=== PATIENT | male | born 1960 | race African-American/Black ===

== ENCOUNTER 2019-01-25 22:03 | Inpatient (IN) | payer OTHER ==
[~2019-01-25] VITALS: Ht 185.4 cm; Wt 159.0 kg
[~2019-01-25 22:03] MED LIST: ACETAMINOP650 MG/20. PO; AMBIEN10 M1 PO; AMBIEN5 MG PO; AMLODIPINE BESY10 MG ORAL; ASPIR 8181 MG ORAL; ATORVASTATIN CA40 MG ORAL; BACTRIM DS TAB1 EAC1 ORAL; CATAPRES0.1 MG PO; CEPHALEXIN500 MG PO; CLONIDINE0.1 MG PO; COUMADIN10 MG PO; COUMADIN4 MG PO; DIOVAN320 MG PO; DOXAZOSIN MESYLA2 MG ORAL; DOXYCYCLINE MO100 MG PO; FERROUS SULFAT325 MG ORAL; FLOMAX0.4 MG ORAL; FUROSEMIDE40 MG/5 ML ORAL; GABAPENTIN300 MG ORAL; HUMALOG100 UNIT/4 SQ; HUMALOG100 UNIT/4 SUBQ; HYDRALAZINE HC100 MG ORAL; HYDRALAZINE HCL25 M2 PO; HYDROCHLOROTHIA50 MG PO; HYDROCODON-ACE1 EA13 ORAL; HYDROCORTISONE25 MG RC; IBUPROFEN100 M2 PO; IBUPROFEN200 M2 ORAL; JANUVIA100 MG PO; KEFLEX500 MG ORAL; LANTUS SOL100 UNIT/1 SUBQ; LANTUS5 UNITS SUBQ; LASIX20 MG PO; LEXAPRO10 MG ORAL; LISINOPRIL20 MG ORAL; LOMOTIL TABLET1 EACH PO; LOPID600 MG PO; LOPRESSOR PO; LOPRESSOR50 M1 PO; LOSARTAN POTASS50 MG ORAL; METOPROLOL SUC100 MG ORAL; MINOXIDIL2.5 MG PO; NEURONTIN600 MG PO; NIFEDIPINE ER90 M3 ORAL; NITROFURANTOIN100 M2 ORAL; NORCO 10-325 T1 EACH ORAL; NORCO 10/3251 EA ORAL; PHENAZOPYRIDIN200 MG ORAL; POTASSIUM CHLO20 ME1 PO; POTASSIUM30 MEQ/22. PO; PRILOSEC20 MG PO; SPIRONOLACTONE100 MG ORAL; T.E.D. ANTI-EM1 EA10 MC; VICODIN 5-5001 EACH PO; VITAMIN D400 INTLU PO
--- NOTE | 2019-01-25 22:11 | NUR ---
ED Nurse Note: Spoke with Karyn at [facility] who states fall was unwitnessed; pt denied LOC.
[2019-01-25 22:19] VITALS: BP 172/104
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
[2019-01-25] MEDS ORDERED: NEURONTIN600 MG ORAL (22:28)
[2019-01-25] MEDS ORDERED: CARDIZEM120 MG PO (22:28)
[2019-01-25] MEDS ORDERED: CARVEDILOL25 MG ORAL (22:28)
[2019-01-25] MEDS ORDERED: CLONIDINE HCL0.3 MG PO (22:28)
[2019-01-26] VITALS (8 sets, daily range): BP systolic 120–181; BP diastolic 56–110
--- NOTE | 2019-01-26 00:26 | Emergency Room Report ---
History of Present Illness General Chief Complaint: Altered Level of Consciousness Source: Patient, EMS Present Illness HPI Patient apparently fell at the [facility] facility. He injured his left arm. Apparently he's had decreased mentation since that time. The transporting [facility] ambulance crew says that he was completely unresponsive for them. The patient does open his eyes when I ask him to. He states he did not lose consciousness when he fell. He's complaining about pain in his left arm. He denies any chest pain, abdominal pain, headache with neck pain. According to cryptic notes on SNF admission: ely, ALOC Admitted May 2016 for abdominal pain. D/C dx: 1. Acute gastroenteritis. 2. Congestive heart failure. 3. Acute on chronic diastolic congestive heart failure. 4. Diabetes mellitus, uncontrolled. 5. Hypertension. 6. Obstructive uropathy. 7. Chronic renal failure. 8. Obstructive sleep apnea. 9. Iron deficiency anemia. 10. Chronic kidney disease stage 3. 11. Gastritis. 12. Colon polyps. 13. Internal hemorrhoids. 14. Diverticulosis. 15. Duodenitis. Allergies: Coded Allergies: AMLODIPINE (Verified Allergy, Unknown, 01/25/19) Patient History Limited by: medical condition Past Medical History: see triage record, old chart reviewed Past Surgical History: other - lamenectomy and fusion C spine Social History: Reports: smoking, drug use - thc Social History Narrative SNF Reviewed Nursing Documentation: PMH: Agreed; PSxH: Agreed Nursing Documentation-PM Past Medical History Deferred: No Family Available Past Medical History: No Stated History Hx Cardiac Problems: Yes - Atherosclerotic Heart Disease; Angina Hx Hypertension: Yes - Idiopathic Peripheral Peripheral Autonomic Neuropathy Hx Pacemaker: No - URETHRA RESTRICTION Hx Asthma: No Hx Diabetes: Yes Hx Cancer: No Hx Gastrointestinal Problems: Yes Hx Dialysis: No - CKD Hx Neurological Problems: Yes Hx Cerebrovascular Accident: Yes - 2005 Hx Syncope: Yes Review of Systems All Other Systems: limited Physical Exam Vital Signs Date Time Temp Pulse Resp B/P (MAP) Pulse Ox O2 Delivery O2 Flow Rate FiO2 01/25/19 22:04 98.1 86 16 172/104 97 Room Air Sp02 EP Interpretation: reviewed, normal General Appearance: lethargic, Chronically Ill Head: normocephalic Eyes: bilateral eye PERRL, bilateral eye Scleral Injection ENT: moist mucus membranes, other - Gag present Neck: supple Respiratory: other - Sai-Lynch respirations with outpatient apnea Cardiovascular #1: regular rate, rhythm, edema - Brawny bilateral Cardiovascular #2: 2+ radial (R), 2+ radial (L) Gastrointestinal: decreased bowel sounds, overweight Musculoskeletal: tender - Left shoulder and left Neurologic: DTRs symmetric, sensory intact, no Babinski, motor weakness - Diffuse, other - Lethargic Psychiatric: depressed affect Skin: normal inspection, warm/dry Procedures Critical Care Time Critical Care Time Total Critical Care Time: 30 min bedside evaluation and treatment excludes procedures (EKG). Reason for critical care: ALOC, respiratory depression, repeated exams Possible complications: hypotension, hypertension, WI, shock, arrhythmias, metabolic acidosis, end organ damage, respiratory failure. Interventions: repeated exams, CO2 monitoring, lasix Course: Patient is altered level of consciousness post fall. Some evidence of resp insufficiency. CO2 monitoring. Repeated exams with improved mentation. CO2 remains stable. Some improvement with lasix with some diuresis. Consultations: nursing staff, EMS, RT Performed by: Dr. Manning Tolerated well condition = serious Medical Decision Making Diagnostic Impression: Primary Impression: Altered level of consciousness Additional Impressions: Fall Qualified Codes: W19.XXXA - Unspecified fall, initial encounter Elbow contusion Qualified Codes: S50.02XA - Contusion of left elbow, initial encounter Shoulder contusion Qualified Codes: S40.012A - Contusion of left shoulder, initial encounter Renal failure Qualified Codes: N19 - Unspecified kidney failure Sai-Lynch breathing Sleep apnea Qualified Codes: G47.30 - Sleep apnea, unspecified ER Course Patient presents with decreased mentation after mechanical fall. He states he remembers falling however because of his decreased mentation I we need to exclude bleed, contusion or other intracranial process. In addition we need to exclude fracture versus contusion of the left arm. Evaluation will be with EKG , chest x-ray and labs. X-ray of the shoulder and elbow will be performed. EKG with sinus rhythm right axis and nonspecific ST-T wave changes. CT no injury. CXR pulm htn. Labs with The patient has snoring respirations with a good O2 saturation. A CO2 monitor is placed on the patient. There is evidence of some retention with a CO2 of 43. Clinically looks like CHF. Will give dose of lasix. No evidence of fx on x-rays of L arm. Patient more responsive. Follows commands. Etiology of lethargy seems multifactorial. Admit telemetry, Dr. Londono. Laboratory Tests Test 01/26/19 00:21 01/26/19 00:40 White Blood Count 6.3 K/UL (4.8-10.8) Red Blood Count 3.71 M/UL (4.70-6.10) L Hemoglobin 9.4 G/DL (14.2-18.0) L Hematocrit 29.9 % (42.0-52.0) L Mean Corpuscular Volume 80 FL (80-99) Mean Corpuscular Hemoglobin 25.2 PG (27.0-31.0) L Mean Corpuscular Hemoglobin Concent 31.4 G/DL (32.0-36.0) L Red Cell Distribution Width 16.2 % (11.6-14.8) H Platelet Count 200 K/UL (150-450) Mean Platelet Volume 8.4 FL (6.5-10.1) Neutrophils (%) (Auto) 61.8 % (45.0-75.0) Lymphocytes (%) (Auto) 21.9 % (20.0-45.0) Monocytes (%) (Auto) 8.8 % (1.0-10.0) Eosinophils (%) (Auto) 6.3 % (0.0-3.0) H Basophils (%) (Auto) 1.3 % (0.0-2.0) Sodium Level 142 MMOL/L (136-145) Potassium Level 4.4 MMOL/L (3.5-5.1) Chloride Level 107 MMOL/L (98-107) Carbon Dioxide Level 29 MMOL/L (21-32) Anion Gap 6 mmol/L (5-15) Blood Urea Nitrogen 43 mg/dL (7-18) H Creatinine 2.8 MG/DL (0.55-1.30) H Estimate Glomerular Filtration Rate 28.4 mL/min (>60) Glucose Level 166 MG/DL (74-106) H Calcium Level 8.4 MG/DL (8.5-10.1) L Total Bilirubin 0.1 MG/DL (0.2-1.0) L Aspartate Amino Transferase (AST) 18 U/L (15-37) Alanine Aminotransferase (ALT) 20 U/L (12-78) Alkaline Phosphatase 98 U/L (46-116) Ammonia 26 umol/L (11-32) Total Creatine Kinase 234 U/L (26-308) Total Protein 7.4 G/DL (6.4-8.2) Albumin 2.7 G/DL (3.4-5.0) L Globulin 4.7 g/dL Albumin/Globulin Ratio 0.6 (1.0-2.7) L Thyroid Stimulating Hormone (TSH) 0.418 uiU/mL (0.358-3.740) Salicylates Level 2.5 ug/mL (2.8-20) L Acetaminophen Level < 2 MCG/ML (10-30) L Serum Alcohol < 3 mg/dL Urine Color Pale yellow Urine Appearance Clear Urine pH 6 (4.5-8.0) Urine Specific [place] 1.015 (1.005-1.035) Urine Protein 3+ (NEGATIVE) H Urine Glucose (UA) Negative (NEGATIVE) Urine Ketones Negative (NEGATIVE) Urine Blood 1+ (NEGATIVE) H Urine Nitrite Negative (NEGATIVE) Urine Bilirubin Negative (NEGATIVE) Urine Urobilinogen Normal MG/DL (0.0-1.0) Urine Leukocyte Esterase 2+ (NEGATIVE) H Urine RBC 0-2 /HPF (0 - 0) H Urine WBC 10-15 /HPF (0 - 0) H Urine Squamous Epithelial Cells None /LPF (NONE/OCC) Urine Bacteria Moderate /HPF (NONE) H Urine Opiates Screen Negative (NEGATIVE) Urine Barbiturates Screen Negative (NEGATIVE) Phencyclidine (PCP) Screen Negative (NEGATIVE) Urine Amphetamines Screen Negative (NEGATIVE) Urine Benzodiazepines Screen Negative (NEGATIVE) Urine Cocaine Screen Negative (NEGATIVE) Urine Marijuana (THC) Screen Positive (NEGATIVE) H EKG Diagnostic Results Rate: normal Rhythm: NSR ST Segments: no acute changes - Right axis deviation Rhythm Strip Diag. Results EP Interpretation: yes Rhythm: NSR, no PVC's, no ectopy Chest X-Ray Diagnostic Results Chest X-Ray Diagnostic Results : Chest X-Ray Ordered: Yes # of Views/Limited/Complete: 1 View Indication: Other EP Interpretation: Yes Interpretation: no effusion, no pneumothorax, other - reversal flow Impression: Other Electronically Signed by: Electronically signed by Marin Manning MD Other X-Ray Diagnostic Results Other X-Ray Diagnostic Results #1: X-Ray ordered: L elbow # of Views/Limited Vs Complete: 3 View Indication: Pain EP Interpretation: Yes Interpretation: no dislocation, no soft tissue swelling, no fractures, other - calcific tendinitis Impression: Other Electronically Signed by: Electronically signed by Marin Manning MD Other X-Ray Diagnostic Results #2: X-Ray ordered: L shoulder # of Views/Limited Vs Complete: 3 View Indication: Pain EP Interpretation: Yes Interpretation: no dislocation, no soft tissue swelling, no fractures, other - DJD Impression: Other Electronically Signed by: Electronically signed by Marin Manning MD CT/MRI/US Diagnostic Results CT/MRI/US Diagnostic Results #1: Imaging Test Ordered: Head Impression Impression: No mass effect, edema or acute bleed. Right mastoiditis CT/MRI/US Diagnostic Results #2: Imaging Test Ordered: C-spine Impression IMPRESSION: No obvious acute injury. Multilevel laminectomy and fusion C3-C7 as described above. Last Vital Signs Date Time Temp Pulse Resp B/P (MAP) Pulse Ox O2 Delivery O2 Flow Rate FiO2 01/26/19 12:14 89 133/67 01/26/19 12:00 97.5 18 95 01/26/19 09:00 Room Air Status: improved Disposition: ADMITTED INPATIENT Condition: Serious Referrals: NON PHYSICIAN (PCP) Marin Manning MD Jan 26, 2019 00:26
[2019-01-26 00:34] LABS: BASOPHILS % (AUTO) 1.3 % (0.0-2.0); EOSINOPHILS % (AUTO) 6.3 % (0.0-3.0); HEMATOCRIT 29.9 % (42.0-52.0); HEMOGLOBIN 9.4 G/DL (14.2-18.0); LYMPHOCYTES % (AUTO) 21.9 % (20.0-45.0); MEAN CORPUSCULAR VOLUME 80 FL (80-99); MONOCYTES % (AUTO) 8.8 % (1.0-10.0); NEUTROPHILS % (AUTO) 61.8 % (45.0-75.0); PLATELET COUNT 200 K/UL (150-450); RED BLOOD COUNT 3.71 M/UL (4.70-6.10); RED CELL DISTRIBUTION WIDTH 16.2 % (11.6-14.8); WHITE BLOOD COUNT 6.3 K/UL (4.8-10.8)
[2019-01-26 00:46] LABS: ANION GAP 6 mmol/L (5-15); BLOOD UREA NITROGEN 43 mg/dL (7-18); CALCIUM 8.4 MG/DL (8.5-10.1); CARBON DIOXIDE 29 MMOL/L (21-32); CHLORIDE 107 MMOL/L (98-107); CREATININE 2.8 MG/DL (0.55-1.30); POTASSIUM 4.4 MMOL/L (3.5-5.1); SODIUM 142 MMOL/L (136-145)
[2019-01-26 00:47] LABS: APPEARANCE,URINE CLEAR; BILIRUBIN, URINE NEGATIVE (NEGATIVE); COLOR,URINE PALE YELLOW; GLUCOSE, URINE (UA) NEGATIVE (NEGATIVE); KETONES,URINE NEGATIVE (NEGATIVE); LEUKOCYTE ESTERASE ,URINE 2+ (NEGATIVE); NITRITE,URINE NEGATIVE (NEGATIVE); PH,URINE 6 (4.5-8.0); PROTEIN,URINE 3+ (NEGATIVE); UROBILINOGEN,URINE NORMAL MG/DL (0.0-1.0)
[2019-01-26] MEDS: Sodium Chloride 550 ML IV SCH (00:47)
[2019-01-26 00:49] LABS: AMMONIA 26 umol/L (11-32)
[2019-01-26 00:59] LABS: ALANINE AMINOTRANSFERASE 20 U/L (12-78); ALBUMIN 2.7 G/DL (3.4-5.0); ALBUMIN/GLOBULIN RATIO 0.6 (1.0-2.7); ALKALINE PHOSPHATASE 98 U/L (46-116); ASPARTATE AMINO TRANSFERASE 18 U/L (15-37); BILIRUBIN,TOTAL 0.1 MG/DL (0.2-1.0); CREATINE KINASE 234 U/L (26-308)
--- NOTE | 2019-01-26 03:20 | NUR ---
ED Nurse Note: Incontinent of large amts of urine (guerney saturated); cleaned and changed.
--- NOTE | 2019-01-26 03:22 | NUR ---
ED Nurse Note: Patient was transfered to Tele just for observation. AAO x1, VSS at this time.
--- NOTE | 2019-01-26 03:30 | NUR ---
NURSE NOTES: Received patient from ED, patient lethargic but able to answer questions. Oriented x4. Placed in bed, in low position, locked, alarm on, call light within reach. Vitals stable at 97.1-81-20-174/110-97% on room air. No signs or respiratory distress.
--- NOTE | 2019-01-26 04:13 | NUR ---
NURSE NOTES: Left message at Dr. Londono's answering service requesting admission orders for the patient.
[2019-01-26] MEDS ORDERED: PROSCAR5 MG ORAL (04:47)
[2019-01-26] MEDS ORDERED: CYMBALTA60 MG ORAL (04:47)
[2019-01-26] MEDS ORDERED: COLACE100 MG ORAL (04:47)
[2019-01-26] MEDS ORDERED: ACETAMINOPHEN325 M1 ORAL (04:47)
[2019-01-26] MEDS ORDERED: BACLOFEN5 GM PO (04:47)
[2019-01-26] MEDS ORDERED: PANTOPRAZOLE SO40 MG ORAL (04:47)
[2019-01-26] MEDS ORDERED: HydrALAZINE 10mg Tab ORAL PRN (05:00)
--- NOTE | 2019-01-26 05:13 | NUR ---
NURSE NOTES: Received admitting orders from Dr. Londono to resume home meds, heparin 5000 units sq q12 hrs for DVT prophylaxis, CPAP, Full Code status, CCHO medium, Accucheck AC + HS with moderate sliding scale. No other orders given.
[2019-01-26] MEDS ORDERED: dilTIAZem HCl 60mg tab ORAL SCH ×2 (06:00)
[2019-01-26] MEDS ORDERED: HydrALAZINE 25mg tab ORAL SCH (06:00)
[2019-01-26] MEDS: HydrALAZINE 25mg tab ORAL SCH ×3 (06:25→21:03)
--- NOTE | 2019-01-26 07:00 | NUR ---
NURSE NOTES: received pt in the bed, sleeping, vital signs stable, no co pain, no SOB, pt on RA o2 sat 94%, C pap at night, skin warm and dry to touch, intact, BLE edema, bed in low position, call light within reach.
[2019-01-26] MEDS: NovoLOG Insulin Flexpen SUBQ SCH ×4 (07:04→21:06)
--- NOTE | 2019-01-26 07:49 | NUR ---
HAND-OFF: Report given to KAREN Garcia. Pt is in stable condition; plan of care endorsed.
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
[2019-01-26] MEDS ORDERED: Tamsulosin 0.4mg cap ORAL SCH (09:00)
[2019-01-26] MEDS ORDERED: Docusate 100mg cap ORAL SCH (09:00)
[2019-01-26] MEDS: Aspirin EC 81mg tab ORAL SCH (10:01)
[2019-01-26] MEDS: Carvedilol 25mg Tab ORAL SCH ×2 (10:01→21:01)
[2019-01-26] MEDS: DULoxetine 30mg cap ORAL SCH (10:02)
[2019-01-26] MEDS: Lisinopril 20mg tab ORAL SCH ×2 (10:03→18:10)
[2019-01-26] MEDS: Heparin 5000 units/ml inj SUBQ SCH ×2 (10:04→21:05)
--- NOTE | 2019-01-26 10:28 | Consultation ---
Consult Note Consult Note asked to eval for renal failure patient examined- interviewed, labs reviewed Patient apparently fell at the longterm facility. He injured his left arm. Apparently he's had decreased mentation since that time. The transporting [facility] ambulance crew says that he was completely unresponsive for them. The patient does open his eyes when I ask him to. He states he did not lose consciousness when he fell. He's complaining about pain in his left arm. He denies any chest pain, abdominal pain, headache with neck pain. According to cryptic notes on SNF admission Admitted May 2016 for abdominal pain. D/C dx: 1. Acute gastroenteritis. 2. Congestive heart failure. 3. Acute on chronic diastolic congestive heart failure. 4. Diabetes mellitus, uncontrolled. 5. Hypertension. 6. Obstructive uropathy. 7. Chronic renal failure. 8. Obstructive sleep apnea. 9. Iron deficiency anemia. 10. Chronic kidney disease stage 3. 11. Gastritis. 12. Colon polyps. 13. Internal hemorrhoids. 14. Diverticulosis. 15. Duodenitis. 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
[2019-01-26] MEDS ORDERED: Minoxidil 2.5mg tab ORAL PRN (10:29)
--- NOTE | 2019-01-26 10:30 | NUR ---
*-* NO INSURANCE INFORMATION IN THE BAR TO SEND CLINICALS *-*
--- NOTE | 2019-01-26 10:31 | History and Physical ---
History of Present Illness General Date patient seen: Jan 26, 2019 Reason for Hospitalization: Altered Level of Consciousness Present Illness HPI 58 year old male with hx of HTN, DM, ? PE, neck surgery, currently living in shelter brought to ER with CC of a mechanical fall at the [facility] facility. He had CT of Head, C spine, shoulder and knee in ER and admitted for further management. Allergies: Coded Allergies: AMLODIPINE (Verified Allergy, Unknown, 01/25/19) Medication History Scheduled Aspirin* (Aspir 81*), 81 MG ORAL DAILY, (Reported) Atorvastatin Calcium* (Atorvastatin Calcium*), 40 MG ORAL BEDTIME, (Reported) Baclofen (Baclofen), 10 GM PO FOUR TIMES A DAY, (Reported) Carvedilol* (Carvedilol*), 25 MG ORAL EVERY 12 HOURS, (Reported) Diltiazem Hcl (Cardizem), 120 MG PO Q12H, (Reported) Diphenoxylate Hcl/Atropine (Lomotil Tablet), 1 EACH PO TID, (Reported) Docusate Sodium* (Colace*), 100 MG ORAL DAILY, (Reported) Doxazosin Mesylate (Doxazosin Mesylate), 1 MG ORAL BID, (Reported) Duloxetine Hcl* (Cymbalta*), 60 MG ORAL DAILY, (Reported) Ferrous Sulfate* (Ferrous Sulfate*), 325 MG ORAL BID, (Reported) Finasteride* (Proscar*), 5 MG ORAL DAILY, (Reported) Furosemide (Furosemide), 20 MG ORAL BID, (Reported) Gabapentin* (Neurontin*), 600 MG ORAL EVERY 12 HOURS, (Reported) Hydralazine Hcl* (Hydralazine Hcl*), 100 MG ORAL TID, (Reported) Insulin Lispro (Humalog), 17 SUBQ TID, (Reported) Lisinopril (Lisinopril*), 20 MG ORAL BID, (Reported) Metoprolol Tartrate* (Lopressor*), 50 MG PO Q12HR, (Reported) Minoxidil* (Loniten*), 2.5 MG PO BID, (Reported) Omeprazole (Prilosec), 20 MG PO DAILY, (Reported) Pantoprazole* (Pantoprazole*), 40 MG ORAL BID, (Reported) Sitagliptin (Januvia), 100 MG PO DAILY, (Reported) Spironolactone* (Spironolactone*), 25 MG ORAL DAILY, (Reported) Tamsulosin HCl (Flomax), 0.4 MG ORAL HS, (Reported) Vitamin D (Vitamin D3), 5,000 INTLU PO DAILY, (Reported) Zolpidem Tartrate* (Ambien*), 10 MG PO HS, (Reported) Scheduled PRN Acetaminophen* (Acetaminophen 325MG Tablet*), 650 MG ORAL Q4H PRN for Mild Pain/ Temp > 100.5, (Reported) Clonidine Hcl (Clonidine Hcl), 0.3 MG PO EVERY 8 HOURS PRN for For High Blood Pressure, (Reported) Hydrocodone Bit/Acetaminophen 10-325* (Hydrocodon-Acetaminophn 10-325*), 1 TAB ORAL FOUR TIMES A DAY PRN for Prn Chest Pain, (Reported) Discontinued Medications Amlodipine Besylate* (Amlodipine Besylate*), 10 MG ORAL DAILY, (Reported) Discontinued Reason: Pt had allergic rxn Durable Medical Equipment Comp.stocking,Thigh,Short,Lrg (T.e.d. Anti-Embolism Stocking), 1 EACH , (DME) Patient History Healthcare decision maker Resuscitation status Full Code Advanced Directive on File Past Medical/Surgical History Past Medical/Surgical History: (1) morbid obesity (2) History of pulmonary embolism (3) Diastolic CHF (4) History of CVA (cerebrovascular accident) (5) Diabetes (6) HTN (hypertension) Review of Systems All Other Systems: negative except mentioned in HPI Physical Exam General Appearance: WD/WN Lines, tubes and drains: peripheral HEENT: normocephalic, atraumatic, PERRL Neck: non-tender, normal alignment Respiratory/Chest: chest wall non-tender, lungs clear Cardiovascular/Chest: normal peripheral pulses, normal rate Abdomen: normal bowel sounds, non tender Last 24 Hour Vital Signs Date Time Temp Pulse Resp B/P (MAP) Pulse Ox O2 Delivery O2 Flow Rate FiO2 01/26/19 10:03 120/56 01/26/19 10:01 95 120/56 01/26/19 07:59 97.3 95 20 120/56 (77) 94 01/26/19 06:25 180/100 01/26/19 06:25 84 180/100 01/26/19 06:25 180/100 01/26/19 04:41 Room Air 01/26/19 04:30 98.4 115 22 145/67 98 Room Air 01/26/19 04:00 80 01/26/19 04:00 96.9 91 20 181/94 (123) 93 01/26/19 03:40 97.1 81 20 174/110 (131) 97 01/26/19 03:39 82 01/26/19 02:15 98.1 16 172/104 97 Room Air 01/25/19 22:19 86 16 Room Air 01/25/19 22:19 98.1 16 172/104 97 Room Air 01/25/19 22:04 98.1 86 16 172/104 97 Room Air Intake and Output 01/25/19 01/26/19 19:00 07:00 Intake Total 100 ml Balance 100 ml Intake Oral 100 ml # Voids 3 Laboratory Tests Test 01/26/19 00:20 01/26/19 00:21 01/26/19 00:40 Hemoglobin A1c 8.2 % (4.3-6.0) H White Blood Count 6.3 K/UL (4.8-10.8) Red Blood Count 3.71 M/UL (4.70-6.10) L Hemoglobin 9.4 G/DL (14.2-18.0) L Hematocrit 29.9 % (42.0-52.0) L Mean Corpuscular Volume 80 FL (80-99) Mean Corpuscular Hemoglobin 25.2 PG (27.0-31.0) L Mean Corpuscular Hemoglobin Concent 31.4 G/DL (32.0-36.0) L Red Cell Distribution Width 16.2 % (11.6-14.8) H Platelet Count 200 K/UL (150-450) Mean Platelet Volume 8.4 FL (6.5-10.1) Neutrophils (%) (Auto) 61.8 % (45.0-75.0) Lymphocytes (%) (Auto) 21.9 % (20.0-45.0) Monocytes (%) (Auto) 8.8 % (1.0-10.0) Eosinophils (%) (Auto) 6.3 % (0.0-3.0) H Basophils (%) (Auto) 1.3 % (0.0-2.0) Sodium Level 142 MMOL/L (136-145) Potassium Level 4.4 MMOL/L (3.5-5.1) Chloride Level 107 MMOL/L (98-107) Carbon Dioxide Level 29 MMOL/L (21-32) Anion Gap 6 mmol/L (5-15) Blood Urea Nitrogen 43 mg/dL (7-18) H Creatinine 2.8 MG/DL (0.55-1.30) H Estimat Glomerular Filtration Rate 28.4 mL/min (>60) Glucose Level 166 MG/DL (74-106) H Calcium Level 8.4 MG/DL (8.5-10.1) L Total Bilirubin 0.1 MG/DL (0.2-1.0) L Aspartate Amino Transf (AST/SGOT) 18 U/L (15-37) Alanine Aminotransferase (ALT/SGPT) 20 U/L (12-78) Alkaline Phosphatase 98 U/L (46-116) Ammonia 26 umol/L (11-32) Total Creatine Kinase 234 U/L (26-308) Pro-B-Type Natriuretic Peptide 689 pg/mL (0-125) H Total Protein 7.4 G/DL (6.4-8.2) Albumin 2.7 G/DL (3.4-5.0) L Globulin 4.7 g/dL Albumin/Globulin Ratio 0.6 (1.0-2.7) L Thyroid Stimulating Hormone (TSH) 0.418 uiU/mL (0.358-3.740) Salicylates Level 2.5 ug/mL (2.8-20) L Acetaminophen Level < 2 MCG/ML (10-30) L Serum Alcohol < 3 mg/dL Urine Color Pale yellow Urine Appearance Clear Urine pH 6 (4.5-8.0) Urine Specific [place] 1.015 (1.005-1.035) Urine Protein 3+ (NEGATIVE) H Urine Glucose (UA) Negative (NEGATIVE) Urine Ketones Negative (NEGATIVE) Urine Blood 1+ (NEGATIVE) H Urine Nitrite Negative (NEGATIVE) Urine Bilirubin Negative (NEGATIVE) Urine Urobilinogen Normal MG/DL (0.0-1.0) Urine Leukocyte Esterase 2+ (NEGATIVE) H Urine RBC 0-2 /HPF (0 - 0) H Urine WBC 10-15 /HPF (0 - 0) H Urine Squamous Epithelial Cells None /LPF (NONE/OCC) Urine Bacteria Moderate /HPF (NONE) H Urine Opiates Screen Negative (NEGATIVE) Urine Barbiturates Screen Negative (NEGATIVE) Phencyclidine (PCP) Screen Negative (NEGATIVE) Urine Amphetamines Screen Negative (NEGATIVE) Urine Benzodiazepines Screen Negative (NEGATIVE) Urine Cocaine Screen Negative (NEGATIVE) Urine Marijuana (THC) Screen Positive (NEGATIVE) H Microbiology Date/Time Source Procedure Growth Status 01/26/19 02:55 Rectum Received Height (Feet): 6 Height (Inches): 1.00 Weight (Pounds): 280 Medications Current Medications Medications (Trade) Dose Ordered Sig/Hong Route PRN Reason Start Time Stop Time Status Last Admin Dose Admin Acetaminophen (Tylenol) 650 mg Q4H PRN ORAL Mild Pain/Temp > 100.5 01/26/19 05:00 02/25/19 04:59 Acetaminophen/ Hydrocodone Bitart ([place] 10/325) 1 tab FOUR TIMES A DAY PRN ORAL Prn Chest Pain 01/26/19 05:00 02/02/19 04:59 Aspirin (Ecotrin) 81 mg DAILY ORAL 01/26/19 09:00 02/25/19 08:59 01/26/19 10:01 Atorvastatin Calcium (Lipitor) 40 mg BEDTIME ORAL 01/26/19 21:00 02/25/19 20:59 Baclofen (Lioresal) 10 mg FOUR TIMES A DAY ORAL 01/26/19 09:00 02/25/19 08:59 01/26/19 10:02 Carvedilol (Coreg) 25 mg EVERY 12 HOURS ORAL 01/26/19 09:00 02/25/19 08:59 01/26/19 10:01 Clonidine HCl (Catapres Tab) 0.3 mg Q8HR ORAL 01/26/19 06:00 02/25/19 05:59 01/26/19 06:25 Dextrose (Dextrose 50%) 25 ml Q30M PRN IV Hypoglycemia 01/26/19 05:15 02/25/19 05:14 Dextrose (Dextrose 50%) 50 ml Q30M PRN IV Hypoglycemia 01/26/19 05:15 02/25/19 05:14 Diltiazem HCl (Cardizem) 60 mg EVERY 6 HOURS ORAL 01/26/19 06:00 02/25/19 05:59 01/26/19 06:25 Docusate Sodium (Colace) 100 mg DAILY ORAL 01/26/19 09:00 02/25/19 08:59 01/26/19 10:02 Duloxetine HCl (Cymbalta) 60 mg DAILY ORAL 01/26/19 09:00 02/25/19 08:59 01/26/19 10:02 Ferrous Sulfate (Feosol) 325 mg BID ORAL 01/26/19 09:00 02/25/19 08:59 01/26/19 10:01 Finasteride (Proscar) 5 mg DAILY ORAL 01/26/19 09:00 02/25/19 08:59 01/26/19 10:00 Gabapentin (Neurontin) 600 mg EVERY 12 HOURS ORAL 01/26/19 09:00 02/25/19 08:59 01/26/19 10:02 Heparin Sodium (Porcine) (Heparin 5000 units/ml) 5,000 units EVERY 12 HOURS SUBQ 01/26/19 09:00 02/25/19 08:59 01/26/19 10:04 Hydralazine HCl (Apresoline) 10 mg Q6H PRN ORAL For High Blood Pressure 01/26/19 05:00 02/25/19 04:59 Hydralazine HCl (Apresoline) 75 mg Q8HR ORAL 01/26/19 06:00 02/25/19 05:59 01/26/19 06:25 Insulin Aspart (NovoLOG) BEFORE MEALS AND HS SUBQ 01/26/19 06:30 02/25/19 06:29 01/26/19 07:04 Lisinopril (Prinivil) 20 mg BID ORAL 01/26/19 09:00 02/25/19 08:59 01/26/19 10:03 Tamsulosin HCl (Flomax) 0.4 mg DAILY ORAL 01/26/19 09:00 02/25/19 08:59 01/26/19 10:01 Assessment/Plan Problem List: (1) Accident due to mechanical fall without injury ICD Codes: W19.XXXA - Unspecified fall, initial encounter SNOMED: 31783139064780 (2) Acute encephalopathy ICD Codes: G93.40 - Encephalopathy, unspecified SNOMED: 18260255, 499461608 (3) Sleep apnea ICD Codes: G47.30 - Sleep apnea, unspecified SNOMED: 75022903 (4) HTN (hypertension) ICD Codes: I10 - Essential (primary) hypertension SNOMED: 67535497 (5) Diabetes ICD Codes: E11.9 - Diabetes SNOMED: 91600108 (6) Diabetic nephropathy ICD Codes: E11.21 - Type 2 diabetes mellitus with diabetic nephropathy SNOMED: 880079775 Assessment/Plan: all studies are negative symptomatic treatment pain control dc to shelter Alexis Cuenca MD Jan 26, 2019 10:31
--- NOTE | 2019-01-26 11:03 | Diagnostic Imaging Report ---
Indication: Headache and head trauma Technique: Contiguous 5 mm thick transaxial imaging of the head obtained in a Siemens Sensation [address] scanner. Soft tissue and bone windows generated. Automatic Exposure Control was utilized. Total Dose length Product (DLP): 2424.[address] Dose Index Volume (CTDIvol): 70.38,41.23 mGy Comparison: none Findings: The size and configuration of the cortical sulci, basal cisterns, and ventricles are within normal limits for age. There is no mass effect, midline shift, or edema identified. There is no evidence of acute hemorrhage or abnormal intra-axial or extra-axial fluid collections. The bones and soft tissues show no obvious abnormalities. There is opacification of the right mastoid air cells. Impression: No mass effect, edema or acute bleed. Right mastoiditis Note: The study is significantly degraded by motion. [facility] has communicated the preliminary results to the Emergency Department. Their findings are largely concordant with this report. The CT scanner at [facility] is accredited by the [place] and the scans are performed using dose optimization techniques as appropriate to a performed exam including Automatic Exposure control.
--- NOTE | 2019-01-26 11:08 | Diagnostic Imaging Report ---
Indication: Neck pain. Technique: Continuous helical imaging of the cervical spine was obtained transaxially from the skull base to the upper thoracic spine. 2-D coronal and sagittal reformatted images were obtained. Automatic Exposure Control was utilized. Total Dose length Product (DLP): 2424.[address] Dose Index Volume (CTDIvol): 70.38,41.23 mGy Comparison: None Findings: The study is significantly degraded by motion. Multilevel laminectomy noted from C3 through C7 with posterior bilateral fusion rods/lateral mass screws noted. Endplate osteophytes demonstrated throughout the cervical spine and multilevel narrowing of intervertebral discs are noted. There is no acute fracture identified. There is mild foraminal stenosis at multiple levels bilaterally. There is opacification of the right mastoid bone. IMPRESSION: No obvious acute injury. Multilevel laminectomy and fusion C3-C7 as described above. Right mastoiditis. Limited evaluation due to motion The CT scanner at [facility] is accredited by the [employer] and the scans are performed using dose optimization techniques as appropriate to a performed exam including Automatic Exposure control.
--- NOTE | 2019-01-26 11:54 | Diagnostic Imaging Report ---
Indication: Dyspnea Comparison: 05/07/2016 A single view chest radiograph was obtained. Findings: Cardiomediastinal appearance is within normal limits for age. The lungs are clear. Pulmonary vascularity is appropriate. The diaphragmatic contour is smooth and costophrenic angles are sharp. No pleural effusions are identified. The bones are unremarkable. Impression: No acute findings
--- NOTE | 2019-01-26 11:59 | Diagnostic Imaging Report ---
Indication: left shoulder pain Findings: 3 views of the left shoulder were obtained. Alignment of the left shoulder is normal. No acute fracture is identified. Soft tissues are unremarkable. Impression: No acute injury
--- NOTE | 2019-01-26 11:59 | Diagnostic Imaging Report ---
Indication: Pain Findings: 3 views of the left elbow were obtained. No fracture seen or malalignment identified. There is soft tissue swelling in the area of the olecranon with a tiny ossific focus which may represent calcific tendinopathy or small avulsive injury. There is no joint effusion. IMPRESSION: Olecranon area soft tissue swelling with small avulsive injury versus calcific tendinitis
[2019-01-26] MEDS: dilTIAZem HCl 60mg tab ORAL SCH ×3 (12:14→23:46)
[2019-01-26] MEDS: Docusate 100mg cap ORAL SCH ×2 (12:23→17:42)
[2019-01-26] MEDS: cloNIDine 0.2mg Tab ORAL SCH ×2 (14:00→21:02)
--- NOTE | 2019-01-26 14:09 | Diagnostic Imaging Report ---
Indication:Elevated Bun and Creatinine. Technique: Grayscale and duplex Doppler imaging of the kidneys performed. Comparison: None Findings: The size, contour, and echogenicity of both kidneys are within normal limits. Right kidney 10 cm. The left kidney 11.3 cm. There is no hydronephrosis. The IVC and urinary bladder are unremarkable. IMPRESSION: Negative exam
--- NOTE | 2019-01-26 14:44 | NUR ---
DRILLING FLUIDS SPECIALIST NOTES SPOKE WITH DJ ARABIC LINGUIST FROM [facility], NO BEDS AVAILABLE TODAY, HOWEVER WILL HAVE A BED FOR PT IN AM. PATRICIO TO FOLLOW UP WITH YENNY JEFFERSON IN AM.
--- NOTE | 2019-01-26 17:35 | Discharge Summary ---
Discharge Summary Hospital Course Date of Admission Jan 26, 2019 at 01:55 Date of Discharge Admitting Diagnosis ALOC HPI Faraz Sharp is a 58 year old male who was admitted on Jan 26, 2019 at 01:55 for Altered Level Of Consciousness Hospital Course Discharge Discharge Disposition Patient was discharged to Michael Londono MD Jan 26, 2019 17:34
[2019-01-26] MEDS: Tamsulosin 0.4mg cap ORAL SCH (18:11)
--- NOTE | 2019-01-26 19:01 | NUR ---
HAND-OFF: Report given to YOEL JONES, NO ANY DISTRESS AT THIS TIME.
--- NOTE | 2019-01-26 19:06 | NUR ---
NURSE NOTES: Received patient from Sara JONES. Patient awake in bed, alert, calm and cooperative. No signs of distress. Bed in low position, locked, alarm on, call light within reach.
[2019-01-26] MEDS: Atorvastatin 20mg tab ORAL SCH (21:01)
--- NOTE | 2019-01-26 21:45 | NUR ---
Pt. awake/alert seen at 20:00 to discuss that there was an order to place him on CPAP at [facility], he said ok. Went back at 21:00 with the machine and as soon as he saw it he stated that he doesn't want to go on it. He claimed that he had tried that kind of machine (v60) before, and the sound kept him up more than helped him sleep. I asked if he wants to give it a try see how he feels but he refused and said he'll wear oxygen instead. Set up a nasal canula and RN Lexx and Melissa informed.
--- NOTE | 2019-01-26 21:55 | Cardiology Report ---
APPROVED REPORT EKG Measurement Heart [id number] Normal sinus rhythm Rightward axis Prolonged QT Abnormal ECG
--- NOTE | 2019-01-26 22:25 | NUR ---
NURSE NOTES: Urine sample collected and sent to lab.
--- NOTE | 2019-01-26 23:56 | NUR ---
NURSE NOTES: Patient has 2400 oral cardizem ordered. Patient asleep. When awaken, patient was irritated and stated "i'm not taking any meds, just leave me alone." Patient went back to sleep. 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
[2019-01-27] VITALS: BP 148/63
[2019-01-27] MEDS: HYDROcodone/Acetamin 10/325 tab ORAL PRN ×3 (01:49→22:42)
[2019-01-27] MEDS: LORazepam 1mg tab ORAL PRN ×3 (03:01→20:58)
[2019-01-27 04:00] VITALS: BP 143/69
[2019-01-27] MEDS: cloNIDine 0.2mg Tab ORAL SCH ×3 (06:00→22:41)
[2019-01-27] MEDS: dilTIAZem HCl 60mg tab ORAL SCH ×3 (06:00→17:37)
[2019-01-27] MEDS: HydrALAZINE 25mg tab ORAL SCH ×3 (06:00→22:41)
--- NOTE | 2019-01-27 06:00 | NUR ---
NURSE NOTES: Patient refused vitals, 0600 meds and blood sugar check.
[2019-01-27] MEDS: NovoLOG Insulin Flexpen SUBQ SCH ×4 (06:30→21:11)
--- NOTE | 2019-01-27 06:45 | NUR ---
NURSE NOTES: Left message with Dr. Londono regarding pt being positive for MRSA nares; awaiting response.
--- NOTE | 2019-01-27 07:00 | Discharge Summary ---
DATE OF ADMISSION: 01/26/2019 DATE OF DISCHARGE: 01/26/2019 HOSPITAL COURSE: This is a 58-year-old gentleman with a past medical history significant for hypertension, diabetes type 2, ? PE, and history of neck surgery, who has presented to the hospital from nursing facility after he had a mechanical fall and sustained injury to the head and neck. Shortly after initial evaluation, the patient had a CT scan of the head and neck done and was unremarkable and the patient was subsequently discharged back to the nursing facility to be followed as outpatient. FINAL DIAGNOSES: 1. Mechanical fall with injury to head and neck, superficial. 2. Acute encephalopathy. 3. Obstructive sleep apnea. 4. Hypertension. 5. Diabetes type 2. 6. Diabetic nephropathy. MEDICATION AT DISCHARGE: Continue discharge medication list. ACTIVITY: As tolerated. DIET: An 1800-ADA cardiac diet. Michael Londono M.D. DR: INEZ JOB#: [id number] CC:
--- NOTE | 2019-01-27 07:21 | NUR ---
NURSE NOTES: Received report from Melissa/Lexx RN. Pt in bed asleep but arousable. No signs of distress noted. On 2LPM O2 via NC. No c/o pain. Bed in lowest position and locked. IV RAC 22G SL intact patent. Will continue to monitor with current plan of care.
--- NOTE | 2019-01-27 07:21 | NUR ---
HAND-OFF: Report given to MIN RN. Patient in stable condition, plan of care endorsed.
[2019-01-27 08:00] VITALS: BP 157/84
[2019-01-27 08:17] LABS: HEMATOCRIT 25.5 % (42.0-52.0); HEMOGLOBIN 7.8 G/DL (14.2-18.0); MEAN CORPUSCULAR VOLUME 81 FL (80-99); PLATELET COUNT 205 K/UL (150-450); RED BLOOD COUNT 3.15 M/UL (4.70-6.10); WHITE BLOOD COUNT 5.6 K/UL (4.8-10.8)
[2019-01-27 08:47] LABS: ALANINE AMINOTRANSFERASE 18 U/L (12-78); ALBUMIN 2.5 G/DL (3.4-5.0); ALBUMIN/GLOBULIN RATIO 0.6 (1.0-2.7); ALKALINE PHOSPHATASE 81 U/L (46-116); ANION GAP 6 mmol/L (5-15); ASPARTATE AMINO TRANSFERASE 14 U/L (15-37); BILIRUBIN,TOTAL 0.2 MG/DL (0.2-1.0); BLOOD UREA NITROGEN 41 mg/dL (7-18); CALCIUM 8.4 MG/DL (8.5-10.1); CARBON DIOXIDE 29 MMOL/L (21-32); CHLORIDE 106 MMOL/L (98-107); CHOLESTEROL 89 MG/DL (< 200); CREATINE KINASE 130 U/L (26-308); CREATININE 2.7 MG/DL (0.55-1.30); FERRITIN 77 NG/ML (8-388); GAMMA GLUTAMYL TRANSPEPTIDASE 8 U/L (5-85); HDL CHOLESTEROL 36 MG/DL (40-60); PHOSPHORUS 4.6 MG/DL (2.5-4.9); SODIUM 141 MMOL/L (136-145); TRIGLYCERIDES 132 MG/DL (30-150)
[2019-01-27 09:20] LABS: % IRON SATURATION 16 % (15-50); IRON 31 ug/dL (50-175); TOTAL IRON BINDING CAPACITY 190 ug/dL (250-450)
[2019-01-27] MEDS: Tamsulosin 0.4mg cap ORAL SCH ×2 (09:43→17:40)
[2019-01-27] MEDS: DULoxetine 30mg cap ORAL SCH (09:44)
[2019-01-27] MEDS: Docusate 100mg cap ORAL SCH ×3 (09:44→17:37)
[2019-01-27] MEDS: Carvedilol 25mg Tab ORAL SCH ×2 (09:44→20:57)
[2019-01-27] MEDS: Aspirin EC 81mg tab ORAL SCH (09:44)
[2019-01-27] MEDS: Lisinopril 20mg tab ORAL SCH ×2 (09:45→17:39)
[2019-01-27] MEDS: Heparin 5000 units/ml inj SUBQ SCH ×2 (09:46→20:58)
--- NOTE | 2019-01-27 10:07 | Pulmonology Progress Note ---
Assessment/Plan Problems: (1) Accident due to mechanical fall without injury (2) Acute encephalopathy (3) Sleep apnea (4) HTN (hypertension) (5) Diabetes (6) Diabetic nephropathy Assessment/Plan no new complains symptomatic treatment Subjective ROS Limited/Unobtainable: No Constitutional: Reports: no symptoms HEENT: Repors: no symptoms Allergies: Coded Allergies: AMLODIPINE (Verified Allergy, Unknown, 01/25/19) Objective Last 24 Hour Vital Signs Date Time Temp Pulse Resp B/P (MAP) Pulse Ox O2 Delivery O2 Flow Rate FiO2 01/27/19 09:45 157/84 01/27/19 09:44 77 157/84 01/27/19 09:00 Room Air 01/27/19 08:00 97.7 77 20 157/84 (108) 96 01/27/19 04:00 98.2 71 20 143/69 (93) 97 01/27/19 03:59 72 01/27/19 02:19 97.4 01/27/19 00:00 97.4 77 19 148/63 (91) 96 01/26/19 23:51 73 01/26/19 23:46 79 148/81 01/26/19 21:03 148/81 01/26/19 21:02 148/81 01/26/19 21:01 79 148/81 01/26/19 21:00 Room Air 01/26/19 20:56 79 20 148/81 (103) 92 01/26/19 20:00 97.6 81 18 148/79 (102) 94 01/26/19 19:35 75 01/26/19 18:11 78 130/68 01/26/19 18:10 130/68 01/26/19 16:00 78 01/26/19 16:00 97.3 79 20 130/68 (88) 96 01/26/19 15:14 130/69 01/26/19 14:00 130/69 01/26/19 12:14 89 133/67 01/26/19 12:00 97.5 89 18 133/67 (89) 95 01/26/19 12:00 88 Intake and Output 01/26/19 01/27/19 19:00 07:00 Intake Total 420 ml 500 ml Balance 420 ml 500 ml Intake Oral 420 ml 500 ml # Voids 2 3 # Bowel Movements 4 Objective General Appearance: WD/WN HEENT: normocephalic, atraumatic Respiratory/Chest: chest wall non-tender, crackles/rales Cardiovascular: normal peripheral pulses, arrhythmia Abdomen: normal bowel sounds, soft, non tender Genitourinary: normal external genitalia Extremities: no clubbing Skin: no rash, no ulcers Neurologic/Psychiatric: sugar cane planter II-XII grossly normal Microbiology Date/Time Source Procedure Growth Status 01/26/19 02:55 Nasal Nares MRSA Culture - Final Staphylococcus Aureus - Mrsa Complete 01/26/19 00:40 Urine,Clean Catch Urine Culture - Preliminary Gram Negative Ismael Resulted 01/26/19 02:55 Rectum Received Laboratory Tests 01/26/19 22:30: Urine Random Sodium 58 01/27/19 06:50: White Blood Count 5.6, Red Blood Count 3.15L, Hemoglobin 7.8L, Hematocrit 25.5L , Mean Corpuscular Volume 81, Mean Corpuscular Hemoglobin 24.8L, Mean Corpuscular Hemoglobin Concent 30.6L, Red Cell Distribution Width 16.0H, Platelet Count 205, Mean Platelet Volume 7.1, Neutrophils (%) (Auto) , Lymphocytes (%) (Auto) , Monocytes (%) (Auto) , Eosinophils (%) (Auto) , Basophils (%) (Auto) , Differential Total Cells Counted 100, Neutrophils % ( Manual) 55, Lymphocytes % (Manual) 32, Monocytes % (Manual) 5, Eosinophils % ( Manual) 8H, Basophils % (Manual) 0, Band Neutrophils 0, Platelet Estimate Adequate, Platelet Morphology Normal, Red Blood Cell Morphology Normal, Sodium Level 141, Potassium Level 4.0, Chloride Level 106, Carbon Dioxide Level 29, Anion Gap 6, Blood Urea Nitrogen 41H, Creatinine 2.7H, Estimat Glomerular Filtration Rate 29.6, Glucose Level 119H, Uric Acid 8.3H, Calcium Level 8.4L, Phosphorus Level 4.6, Magnesium Level 1.8, Iron Level 31L, Total Iron Binding Capacity 190L, Percent Iron Saturation 16, Unsaturated Iron Binding 159, Ferritin 77, Total Bilirubin 0.2, Gamma Glutamyl Transpeptidase 8, Aspartate Amino Transf (AST/SGOT) 14L, Alanine Aminotransferase (ALT/SGPT) 18, Alkaline Phosphatase 81, Total Creatine Kinase 130, Troponin I 0.007, C-Reactive Protein , Quantitative < 0.4, Pro-B-Type Natriuretic Peptide 556H, Total Protein 7.0, Albumin 2.5L, Globulin 4.5, Albumin/Globulin Ratio 0.6L, Triglycerides Level 132 , Cholesterol Level 89, LDL Cholesterol 36, HDL Cholesterol 36L, Cholesterol/ HDL Ratio 2.5L, Vitamin B12 Level 288, Folate 14.2 Current Medications Medications (Trade) Dose Ordered Sig/Hong Route PRN Reason Start Time Stop Time Status Last Admin Dose Admin Acetaminophen (Tylenol) 650 mg Q4H PRN ORAL Mild Pain/Temp > 100.5 01/26/19 05:00 02/25/19 04:59 Acetaminophen/ Hydrocodone Bitart ([place] 10/325) 1 tab FOUR TIMES A DAY PRN ORAL Prn Chest Pain 01/26/19 05:00 02/02/19 04:59 01/27/19 01:49 Aspirin (Ecotrin) 81 mg DAILY ORAL 01/26/19 09:00 02/25/19 08:59 01/27/19 09:44 Atorvastatin Calcium (Lipitor) 40 mg BEDTIME ORAL 01/26/19 21:00 02/25/19 20:59 01/26/19 21:01 Baclofen (Lioresal) 10 mg FOUR TIMES A DAY ORAL 01/26/19 09:00 02/25/19 08:59 01/27/19 09:44 Carvedilol (Coreg) 25 mg EVERY 12 HOURS ORAL 01/26/19 09:00 02/25/19 08:59 01/27/19 09:44 Clonidine HCl (Catapres tab) 0.2 mg Q8HR ORAL 01/26/19 14:00 02/25/19 05:59 01/26/19 21:02 Dextrose (Dextrose 50%) 25 ml Q30M PRN IV Hypoglycemia 01/26/19 05:15 02/25/19 05:14 Dextrose (Dextrose 50%) 50 ml Q30M PRN IV Hypoglycemia 01/26/19 05:15 02/25/19 05:14 Diltiazem HCl (Cardizem) 60 mg EVERY 6 HOURS ORAL 01/26/19 12:00 02/25/19 05:59 01/26/19 18:11 Docusate Sodium (Colace) 100 mg TID ORAL 01/26/19 13:00 02/25/19 08:59 01/27/19 09:44 Duloxetine HCl (Cymbalta) 60 mg DAILY ORAL 01/26/19 09:00 02/25/19 08:59 01/27/19 09:44 Finasteride (Proscar) 5 mg DAILY ORAL 01/26/19 09:00 02/25/19 08:59 01/27/19 09:44 Gabapentin (Neurontin) 600 mg EVERY 12 HOURS ORAL 01/26/19 09:00 02/25/19 08:59 01/27/19 09:45 Heparin Sodium (Porcine) (Heparin 5000 units/ml) 5,000 units EVERY 12 HOURS SUBQ 01/26/19 09:00 02/25/19 08:59 01/27/19 09:46 Hydralazine HCl (Apresoline) 75 mg Q8HR ORAL 01/26/19 06:00 02/25/19 05:59 01/26/19 21:03 Insulin Aspart (NovoLOG) BEFORE MEALS AND HS SUBQ 01/26/19 06:30 02/25/19 06:29 01/26/19 21:06 Lisinopril (Prinivil) 20 mg BID ORAL 01/26/19 09:00 02/25/19 08:59 01/27/19 09:45 Lorazepam (Ativan) 2 mg Q8H PRN ORAL Agitation 01/26/19 10:45 02/02/19 10:44 01/27/19 03:01 Minoxidil (Loniten) 2.5 mg Q4H PRN ORAL bp over 170 syst 01/26/19 10:29 02/25/19 10:28 Tamsulosin HCl (Flomax) 0.4 mg BID ORAL 01/26/19 18:00 02/25/19 08:59 01/27/19 09:43 Alexis Cuenca MD Jan 27, 2019 10:07
[2019-01-27 12:00] VITALS: BP 153/71
--- NOTE | 2019-01-27 13:32 | Cardiology Report ---
APPROVED REPORT EXAM: Two-dimensional and M-mode echocardiogram with Doppler and color Doppler. INDICATION Congestive Heart Failure M-Mode DIMENSIONS IVSd2.1 (0.7-1.1cm)Left Atrium (MM)5.5 (1.6-4.0cm) LVDd4.0 (3.5-5.6cm)Aortic Root3.6 (2.0-3.7cm) PWd2.2 (0.7-1.1cm)Aortic Cusp Exc.2.0 (1.5-2.0cm) IVSs3.0 cm LVDs2.5 (2.5-4.0cm) PWs2.8 cm Technically difficult study due to patients breathing. Study quality precludes accurate assessment of regional wall motion. Normal left ventricular chamber size, systolic function and wall motion to extent visualized. Left ventricular ejection fraction estimated to be 60-65 %. Mild left ventricular hypertrophy. No evidence of pericardial effusion. Mild left atrial enlargement. Right cardiac chamber sizes are within normal limits. Focal aortic valve sclerosis with adequate cusp excursion. Thickened mitral valve leaflets with normal excursion. Mild mitral annulus and aortic root calcification. Pulmonic valve not well visualized. Normal tricuspid valve structure. IVC not well visualized. A color flow and spectral Doppler study was performed and revealed: No aortic insufficiency. Trace mitral regurgitation. Mitral diastolic velocities suggest mild left ventricular diastolic dysfunction (Grade I). Trace tricuspid regurgitation. Tricuspid systolic velocities suggests peak right ventricular systolic pressure of 14 mmHg. No pulmonic regurgitation present.
--- NOTE | 2019-01-27 13:53 | NUR ---
NURSE NOTES: follow up with classification case manager in regards to discharge to SNF spoke with Sherie from classification case manager and according to her, still no bed.
--- NOTE | 2019-01-27 14:48 | Internal Med Progress Note ---
Subjective Date of Service: Jan 27, 2019 Physician Name Mathew Benoit Attending Physician Michael Londono MD Current Medications Medications (Trade) Dose Ordered Sig/Hong Route PRN Reason Start Time Stop Time Status Last Admin Dose Admin Acetaminophen (Tylenol) 650 mg Q4H PRN ORAL Mild Pain/Temp > 100.5 01/26/19 05:00 02/25/19 04:59 Acetaminophen/ Hydrocodone Bitart ([place] 10/325) 1 tab FOUR TIMES A DAY PRN ORAL Prn Chest Pain 01/26/19 05:00 02/02/19 04:59 01/27/19 13:06 Aspirin (Ecotrin) 81 mg DAILY ORAL 01/26/19 09:00 02/25/19 08:59 01/27/19 09:44 Atorvastatin Calcium (Lipitor) 40 mg BEDTIME ORAL 01/26/19 21:00 02/25/19 20:59 01/26/19 21:01 Baclofen (Lioresal) 10 mg FOUR TIMES A DAY ORAL 01/26/19 09:00 02/25/19 08:59 01/27/19 13:05 Carvedilol (Coreg) 25 mg EVERY 12 HOURS ORAL 01/26/19 09:00 02/25/19 08:59 01/27/19 09:44 Clonidine HCl (Catapres tab) 0.2 mg Q8HR ORAL 01/26/19 14:00 02/25/19 05:59 01/27/19 13:06 Dextrose (Dextrose 50%) 25 ml Q30M PRN IV Hypoglycemia 01/26/19 05:15 02/25/19 05:14 Dextrose (Dextrose 50%) 50 ml Q30M PRN IV Hypoglycemia 01/26/19 05:15 02/25/19 05:14 Diltiazem HCl (Cardizem) 60 mg EVERY 6 HOURS ORAL 01/26/19 12:00 02/25/19 05:59 01/27/19 11:42 Docusate Sodium (Colace) 100 mg TID ORAL 01/26/19 13:00 02/25/19 08:59 01/27/19 13:06 Duloxetine HCl (Cymbalta) 60 mg DAILY ORAL 01/26/19 09:00 02/25/19 08:59 01/27/19 09:44 Finasteride (Proscar) 5 mg DAILY ORAL 01/26/19 09:00 02/25/19 08:59 01/27/19 09:44 Gabapentin (Neurontin) 600 mg EVERY 12 HOURS ORAL 01/26/19 09:00 02/25/19 08:59 01/27/19 09:45 Heparin Sodium (Porcine) (Heparin 5000 units/ml) 5,000 units EVERY 12 HOURS SUBQ 01/26/19 09:00 02/25/19 08:59 01/27/19 09:46 Hydralazine HCl (Apresoline) 75 mg Q8HR ORAL 01/26/19 06:00 02/25/19 05:59 01/27/19 13:06 Insulin Aspart (NovoLOG) BEFORE MEALS AND HS SUBQ 01/26/19 06:30 02/25/19 06:29 01/27/19 11:56 Lisinopril (Prinivil) 20 mg BID ORAL 01/26/19 09:00 02/25/19 08:59 01/27/19 09:45 Lorazepam (Ativan) 2 mg Q8H PRN ORAL Agitation 01/26/19 10:45 02/02/19 10:44 01/27/19 11:42 Minoxidil (Loniten) 2.5 mg Q4H PRN ORAL bp over 170 syst 01/26/19 10:29 02/25/19 10:28 Tamsulosin HCl (Flomax) 0.4 mg BID ORAL 01/26/19 18:00 02/25/19 08:59 01/27/19 09:43 Allergies: Coded Allergies: AMLODIPINE (Verified Allergy, Unknown, 01/25/19) ROS Limited/Unobtainable: No Constitutional: Reports: no symptoms HEENT: Reports: no symptoms Cardiovascular: Reports: no symptoms Respiratory: Reports: no symptoms Gastrointestinal/Abdominal: Reports: no symptoms Genitourinary: Reports: no symptoms Neurologic/Psychiatric: Reports: no symptoms Subjective 58 YO M admitted with head and neck pain due to fall injury. Cover for Int Med- DR Londono. Refusing meds Objective Last Vital Signs Date Time Temp Pulse Resp B/P (MAP) Pulse Ox O2 Delivery O2 Flow Rate FiO2 01/27/19 13:06 153/71 01/27/19 12:00 74 01/27/19 12:00 98.0 19 94 01/27/19 09:00 Room Air Laboratory Tests Test 01/26/19 22:30 01/27/19 06:50 Urine Random Sodium 58 mmol/L (20-110) White Blood Count 5.6 K/UL (4.8-10.8) Red Blood Count 3.15 M/UL (4.70-6.10) L Hemoglobin 7.8 G/DL (14.2-18.0) L Hematocrit 25.5 % (42.0-52.0) L Mean Corpuscular Volume 81 FL (80-99) Mean Corpuscular Hemoglobin 24.8 PG (27.0-31.0) L Mean Corpuscular Hemoglobin Concent 30.6 G/DL (32.0-36.0) L Red Cell Distribution Width 16.0 % (11.6-14.8) H Platelet Count 205 K/UL (150-450) Mean Platelet Volume 7.1 FL (6.5-10.1) Neutrophils (%) (Auto) % (45.0-75.0) Lymphocytes (%) (Auto) % (20.0-45.0) Monocytes (%) (Auto) % (1.0-10.0) Eosinophils (%) (Auto) % (0.0-3.0) Basophils (%) (Auto) % (0.0-2.0) Differential Total Cells Counted 100 Neutrophils % (Manual) 55 % (45-75) Lymphocytes % (Manual) 32 % (20-45) Monocytes % (Manual) 5 % (1-10) Eosinophils % (Manual) 8 % (0-3) H Basophils % (Manual) 0 % (0-2) Band Neutrophils 0 % (0-8) Platelet Estimate Adequate Platelet Morphology Normal Red Blood Cell Morphology Normal Sodium Level 141 MMOL/L (136-145) Potassium Level 4.0 MMOL/L (3.5-5.1) Chloride Level 106 MMOL/L (98-107) Carbon Dioxide Level 29 MMOL/L (21-32) Anion Gap 6 mmol/L (5-15) Blood Urea Nitrogen 41 mg/dL (7-18) H Creatinine 2.7 MG/DL (0.55-1.30) H Estimat Glomerular Filtration Rate 29.6 mL/min (>60) Glucose Level 119 MG/DL (74-106) H Uric Acid 8.3 MG/DL (2.6-7.2) H Calcium Level 8.4 MG/DL (8.5-10.1) L Phosphorus Level 4.6 MG/DL (2.5-4.9) Magnesium Level 1.8 MG/DL (1.8-2.4) Iron Level 31 ug/dL (50-175) L Total Iron Binding Capacity 190 ug/dL (250-450) L Percent Iron Saturation 16 % (15-50) Unsaturated Iron Binding 159 ug/dL (112-346) Ferritin 77 NG/ML (8-388) Total Bilirubin 0.2 MG/DL (0.2-1.0) Gamma Glutamyl Transpeptidase 8 U/L (5-85) Aspartate Amino Transf (AST/SGOT) 14 U/L (15-37) L Alanine Aminotransferase (ALT/SGPT) 18 U/L (12-78) Alkaline Phosphatase 81 U/L (46-116) Total Creatine Kinase 130 U/L (26-308) Troponin I 0.007 ng/mL (0.000-0.056) C-Reactive Protein, Quantitative < 0.4 mg/dL (0.00-0.90) Pro-B-Type Natriuretic Peptide 556 pg/mL (0-125) H Total Protein 7.0 G/DL (6.4-8.2) Albumin 2.5 G/DL (3.4-5.0) L Globulin 4.5 g/dL Albumin/Globulin Ratio 0.6 (1.0-2.7) L Triglycerides Level 132 MG/DL (30-150) Cholesterol Level 89 MG/DL (< 200) LDL Cholesterol 36 mg/dL (<100) HDL Cholesterol 36 MG/DL (40-60) L Cholesterol/HDL Ratio 2.5 (3.3-4.4) L Vitamin B12 Level 288 PG/ML (193-986) Folate 14.2 NG/ML (8.6-58.9) Microbiology Date/Time Source Procedure Growth Status 01/26/19 02:55 Nasal Nares MRSA Culture - Final Staphylococcus Aureus - Mrsa Complete 01/26/19 00:40 Urine,Clean Catch Urine Culture - Preliminary Gram Negative Ismael Resulted 01/26/19 02:55 Rectum Received Intake and Output 01/26/19 01/27/19 19:00 07:00 Intake Total 420 ml 500 ml Balance 420 ml 500 ml Intake Oral 420 ml 500 ml # Voids 2 3 # Bowel Movements 4 Assessment/Plan Problem List: (1) Diabetes mellitus type II, controlled Assessment & Plan: continue novolog sliding scale (2) Diabetic neuropathy (3) Headache Assessment & Plan: CT brain normal (4) Neck pain Assessment & Plan: CT spine normal (5) HTN (hypertension) Assessment & Plan: continue lisinopril (6) Acute encephalopathy Status: not improved Mathew Benoit MD Jan 27, 2019 14:48
--- NOTE | 2019-01-27 14:52 | NUR ---
CASE MANAGEMENT: REVIEW SI: ACUTE ENCEPHALOPATHY . HTN T 98.0 HR 75 RR 19 BP 157/84 SAT 94% ROOM AIR H/H 7.8/25.5 BUN 41 CR 2.7 IS: CARDIZEM PO Q6HR ECOTRIN PO QD BACLOFEN PO QID 1 UNIT PRBC'S TELEMETRY UNIT STATUS DCP: PATIENT IS FROM [facility]
--- NOTE | 2019-01-27 15:02 | Nephrology Progress Note ---
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 Diabetic Nephropathy + Proteinuria Anemia Obesity HypoAlbuminemia UTI MJ in urine Plan transfuse- BP control BS control 2D echo HOLLIE kidney Anemia montiel Urine studies Subjective ROS Limited/Unobtainable: No Constitutional: Reports: malaise Objective Objective Last 24 Hour Vital Signs Date Time Temp Pulse Resp B/P (MAP) Pulse Ox O2 Delivery O2 Flow Rate FiO2 01/27/19 13:06 153/71 01/27/19 13:06 153/71 01/27/19 12:00 74 01/27/19 12:00 98.0 75 19 153/71 (98) 94 01/27/19 11:42 75 153/71 01/27/19 09:45 157/84 01/27/19 09:44 77 157/84 01/27/19 09:00 Room Air 01/27/19 08:00 97.7 77 20 157/84 (108) 96 01/27/19 08:00 82 01/27/19 04:00 98.2 71 20 143/69 (93) 97 01/27/19 03:59 72 01/27/19 02:19 97.4 01/27/19 00:00 97.4 77 19 148/63 (91) 96 01/26/19 23:51 73 01/26/19 23:46 79 148/81 01/26/19 21:03 148/81 01/26/19 21:02 148/81 01/26/19 21:01 79 148/81 01/26/19 21:00 Room Air 01/26/19 20:56 79 20 148/81 (103) 92 01/26/19 20:00 97.6 81 18 148/79 (102) 94 01/26/19 19:35 75 01/26/19 18:11 78 130/68 01/26/19 18:10 130/68 01/26/19 16:00 78 01/26/19 16:00 97.3 79 20 130/68 (88) 96 01/26/19 15:14 130/69 Intake and Output 01/26/19 01/27/19 19:00 07:00 Intake Total 420 ml 500 ml Balance 420 ml 500 ml Intake Oral 420 ml 500 ml # Voids 2 3 # Bowel Movements 4 Laboratory Tests 01/26/19 22:30: Urine Random Sodium 58 01/27/19 06:50: White Blood Count 5.6, Red Blood Count 3.15L, Hemoglobin 7.8L, Hematocrit 25.5L , Mean Corpuscular Volume 81, Mean Corpuscular Hemoglobin 24.8L, Mean Corpuscular Hemoglobin Concent 30.6L, Red Cell Distribution Width 16.0H, Platelet Count 205, Mean Platelet Volume 7.1, Neutrophils (%) (Auto) , Lymphocytes (%) (Auto) , Monocytes (%) (Auto) , Eosinophils (%) (Auto) , Basophils (%) (Auto) , Differential Total Cells Counted 100, Neutrophils % ( Manual) 55, Lymphocytes % (Manual) 32, Monocytes % (Manual) 5, Eosinophils % ( Manual) 8H, Basophils % (Manual) 0, Band Neutrophils 0, Platelet Estimate Adequate, Platelet Morphology Normal, Red Blood Cell Morphology Normal, Sodium Level 141, Potassium Level 4.0, Chloride Level 106, Carbon Dioxide Level 29, Anion Gap 6, Blood Urea Nitrogen 41H, Creatinine 2.7H, Estimat Glomerular Filtration Rate 29.6, Glucose Level 119H, Uric Acid 8.3H, Calcium Level 8.4L, Phosphorus Level 4.6, Magnesium Level 1.8, Iron Level 31L, Total Iron Binding Capacity 190L, Percent Iron Saturation 16, Unsaturated Iron Binding 159, Ferritin 77, Total Bilirubin 0.2, Gamma Glutamyl Transpeptidase 8, Aspartate Amino Transf (AST/SGOT) 14L, Alanine Aminotransferase (ALT/SGPT) 18, Alkaline Phosphatase 81, Total Creatine Kinase 130, Troponin I 0.007, C-Reactive Protein , Quantitative < 0.4, Pro-B-Type Natriuretic Peptide 556H, Total Protein 7.0, Albumin 2.5L, Globulin 4.5, Albumin/Globulin Ratio 0.6L, Triglycerides Level 132 , Cholesterol Level 89, LDL Cholesterol 36, HDL Cholesterol 36L, Cholesterol/ HDL Ratio 2.5L, Vitamin B12 Level 288, Folate 14.2 Height (Feet): 6 Height (Inches): 1.00 Weight (Pounds): 280 General Appearance: no apparent distress, lethargic Cardiovascular: regular rhythm Respiratory/Chest: decreased breath sounds Abdomen: other - obese Fouladian,Delroy MD Jan 27, 2019 15:02
[2019-01-27 16:00] VITALS: BP 166/80
--- NOTE | 2019-01-27 17:15 | NUR ---
NURSE NOTES: I unit of PRBC done with adverse reaction
--- NOTE | 2019-01-27 19:38 | NUR ---
HAND-OFF: Report given to Mendy JONES. Pt remains stable
[2019-01-27 20:00] VITALS: BP 160/74
--- NOTE | 2019-01-27 20:39 | NUR ---
NURSE NOTES: Called Dr. Cuenca regarding patient's request for PRN Dilaudid 2mg IV medication. Awaiting callback.
[2019-01-27] MEDS: Atorvastatin 20mg tab ORAL SCH (20:57)
--- NOTE | 2019-01-27 21:07 | NUR ---
NURSE NOTES: Received call from Dr. Cuenca. No new orders at this time.
--- NOTE | 2019-01-27 23:40 | NUR ---
NURSE NOTES: Patient strongly refusing CPAP at this time. Risks and benefits explained; still refusing.
[2019-01-28] VITALS: BP 141/89
[2019-01-28] MEDS: dilTIAZem HCl 60mg tab ORAL SCH ×5 (00:47→23:34)
--- NOTE | 2019-01-28 03:30 | NUR ---
NURSE NOTES: Patient is asleep lying semi-yusuf's; resting comfortably. No signs of acute distress or pain noted at this time. On 2L nasal cannula.
[2019-01-28 04:00] VITALS: BP 146/71
[2019-01-28] MEDS: Sodium Chloride 550 ML IV SCH (05:19)
[2019-01-28] MEDS: HydrALAZINE 25mg tab ORAL SCH ×3 (05:56→21:39)
[2019-01-28] MEDS: cloNIDine 0.2mg Tab ORAL SCH ×3 (05:58→21:40)
[2019-01-28] MEDS: NovoLOG Insulin Flexpen SUBQ SCH ×4 (06:03→21:44)
[2019-01-28] MEDS: LORazepam 1mg tab ORAL PRN ×2 (06:45→17:20)
--- NOTE | 2019-01-28 07:14 | NUR ---
NURSE NOTES: Called Dr. Cuenca to inform him that patient is positive for VRE rectum. Awaiting callback for any further orders.
--- NOTE | 2019-01-28 07:21 | NUR ---
HAND-OFF: Report given to KAREN Conteh. Patient is awake lying semi-yusuf's; resting comfortably. On 2L nasal cannula. In stable condition.
[2019-01-28 07:22] LABS: ANION GAP 8 mmol/L (5-15); BLOOD UREA NITROGEN 39 mg/dL (7-18); CALCIUM 8.5 MG/DL (8.5-10.1); CARBON DIOXIDE 25 MMOL/L (21-32); CHLORIDE 106 MMOL/L (98-107); CREATININE 2.2 MG/DL (0.55-1.30); POTASSIUM 4.4 MMOL/L (3.5-5.1); SODIUM 139 MMOL/L (136-145)
--- NOTE | 2019-01-28 07:41 | NUR ---
NURSE NOTES: Pt in bed in low position, bed alarm on, call light at bedside, Pt Ox4 calm and cooperative, Lab took blood sample but called and stated that it was clotted and will redraw, breakfast at bedside, HOB in semi fowlers, urinal with pt and pt sometimes is incontinent, If HGB and HCt is in acceptable means d/c to [facility], will call later today and find out if bed is available to return today.
[2019-01-28 08:00] VITALS: BP 150/74
[2019-01-28] MEDS: Tamsulosin 0.4mg cap ORAL SCH ×2 (08:48→17:16)
[2019-01-28] MEDS: Lisinopril 20mg tab ORAL SCH ×2 (08:48→17:16)
[2019-01-28] MEDS: DULoxetine 30mg cap ORAL SCH (08:49)
[2019-01-28] MEDS: Aspirin EC 81mg tab ORAL SCH (08:49)
[2019-01-28] MEDS: Carvedilol 25mg Tab ORAL SCH ×2 (08:49→21:39)
[2019-01-28] MEDS: Docusate 100mg cap ORAL SCH ×3 (08:50→17:17)
[2019-01-28] MEDS: Heparin 5000 units/ml inj SUBQ SCH ×2 (08:51→21:44)
[2019-01-28 09:00] LABS: BASOPHILS % (AUTO) 0.8 % (0.0-2.0); EOSINOPHILS % (AUTO) 5.6 % (0.0-3.0); HEMATOCRIT 31.7 % (42.0-52.0); HEMOGLOBIN 9.9 G/DL (14.2-18.0); LYMPHOCYTES % (AUTO) 22.6 % (20.0-45.0); MEAN CORPUSCULAR VOLUME 81 FL (80-99); MONOCYTES % (AUTO) 6.9 % (1.0-10.0); NEUTROPHILS % (AUTO) 64.1 % (45.0-75.0); PLATELET COUNT 169 K/UL (150-450); RED BLOOD COUNT 3.93 M/UL (4.70-6.10); RED CELL DISTRIBUTION WIDTH 15.7 % (11.6-14.8); WHITE BLOOD COUNT 5.4 K/UL (4.8-10.8)
[2019-01-28 12:00] VITALS: BP 143/73
[2019-01-28] MEDS: HYDROcodone/Acetamin 10/325 tab ORAL PRN ×2 (13:26→21:40)
--- NOTE | 2019-01-28 13:48 | Nephrology Progress Note ---
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 DC Subjective ROS Limited/Unobtainable: No Constitutional: Reports: other - more responsive Objective Objective Last 24 Hour Vital Signs Date Time Temp Pulse Resp B/P (MAP) Pulse Ox O2 Delivery O2 Flow Rate FiO2 01/28/19 13:24 143/73 01/28/19 12:00 97.1 72 20 143/73 (96) 96 01/28/19 11:42 73 150/74 01/28/19 11:35 74 01/28/19 08:49 72 150/74 01/28/19 08:48 150/74 01/28/19 08:04 Nasal Cannula 2.0 01/28/19 08:00 96.6 72 18 150/74 (99) 96 01/28/19 07:54 76 01/28/19 05:58 146/71 01/28/19 05:56 63 146/71 01/28/19 05:56 146/71 01/28/19 04:00 63 01/28/19 04:00 97.3 61 18 146/71 (96) 97 01/28/19 00:47 73 141/89 01/28/19 00:00 73 01/28/19 00:00 98.0 73 18 141/89 (106) 98 01/27/19 22:41 160/74 01/27/19 22:41 160/74 01/27/19 21:00 Nasal Cannula 2.0 01/27/19 20:57 76 160/74 01/27/19 20:00 96.6 76 20 160/74 (102) 98 01/27/19 20:00 74 01/27/19 17:39 166/80 01/27/19 17:37 70 166/80 01/27/19 16:00 97.9 72 19 166/80 (108) 94 01/27/19 16:00 70 Intake and Output 01/27/19 01/28/19 19:00 07:00 Intake Total 826 ml 480 ml Output Total 400 ml Balance 426 ml 480 ml Intake Oral 826 ml 480 ml Output Urine Total 400 ml # Voids 4 3 # Bowel Movements 2 4 Laboratory Tests 01/28/19 01:27: Urine Eosinophils Occasional 01/28/19 06:15: Sodium Level 139, Potassium Level 4.4, Chloride Level 106, Carbon Dioxide Level 25, Anion Gap 8, Blood Urea Nitrogen 39H, Creatinine 2.2H, Estimat Glomerular Filtration Rate 37.5, Glucose Level 110H, Calcium Level 8.5 01/28/19 08:35: White Blood Count 5.4, Red Blood Count 3.93L, Hemoglobin 9.9L, Hematocrit 31.7L , Mean Corpuscular Volume 81, Mean Corpuscular Hemoglobin 25.3L, Mean Corpuscular Hemoglobin Concent 31.4L, Red Cell Distribution Width 15.7H, Platelet Count 169, Mean Platelet Volume 8.6, Neutrophils (%) (Auto) 64.1, Lymphocytes (%) (Auto) 22.6, Monocytes (%) (Auto) 6.9, Eosinophils (%) (Auto) 5.6H, Basophils (%) (Auto) 0.8 Height (Feet): 6 Height (Inches): 1.00 Weight (Pounds): 280 General Appearance: no apparent distress Cardiovascular: normal rate Respiratory/Chest: lungs clear, decreased breath sounds Abdomen: distended, other - obese Delroy Chin MD Jan 28, 2019 13:47
--- NOTE | 2019-01-28 14:00 | NUR ---
SNF notes called [facility], spoke to Naomy, she stated that the pt didnt sign documentation that he wanted to return to the facility, therefore, there is no bed available . Pt stated he did sign and he has property there.
--- NOTE | 2019-01-28 15:58 | Internal Med Progress Note ---
Subjective Date of Service: Jan 28, 2019 Physician Name Mathew Benoit Attending Physician Michael Londono MD Current Medications Medications (Trade) Dose Ordered Sig/Hong Route PRN Reason Start Time Stop Time Status Last Admin Dose Admin Acetaminophen (Tylenol) 650 mg Q4H PRN ORAL Mild Pain/Temp > 100.5 01/26/19 05:00 02/25/19 04:59 Acetaminophen/ Hydrocodone Bitart ([place] 10/325) 1 tab FOUR TIMES A DAY PRN ORAL Prn Chest Pain 01/26/19 05:00 02/02/19 04:59 01/28/19 13:26 Aspirin (Ecotrin) 81 mg DAILY ORAL 01/26/19 09:00 02/25/19 08:59 01/28/19 08:49 Atorvastatin Calcium (Lipitor) 40 mg BEDTIME ORAL 01/26/19 21:00 02/25/19 20:59 01/27/19 20:57 Baclofen (Lioresal) 10 mg FOUR TIMES A DAY ORAL 01/26/19 09:00 02/25/19 08:59 01/28/19 13:24 Carvedilol (Coreg) 25 mg EVERY 12 HOURS ORAL 01/26/19 09:00 02/25/19 08:59 01/28/19 08:49 Clonidine HCl (Catapres tab) 0.2 mg Q8HR ORAL 01/26/19 14:00 02/25/19 05:59 01/28/19 13:24 Dextrose (Dextrose 50%) 25 ml Q30M PRN IV Hypoglycemia 01/26/19 05:15 02/25/19 05:14 Dextrose (Dextrose 50%) 50 ml Q30M PRN IV Hypoglycemia 01/26/19 05:15 02/25/19 05:14 Diltiazem HCl (Cardizem) 60 mg EVERY 6 HOURS ORAL 01/26/19 12:00 02/25/19 05:59 01/28/19 11:42 Docusate Sodium (Colace) 100 mg TID ORAL 01/26/19 13:00 02/25/19 08:59 01/27/19 17:37 Duloxetine HCl (Cymbalta) 60 mg DAILY ORAL 01/26/19 09:00 02/25/19 08:59 01/28/19 08:49 Finasteride (Proscar) 5 mg DAILY ORAL 01/26/19 09:00 02/25/19 08:59 01/28/19 08:49 Gabapentin (Neurontin) 600 mg EVERY 12 HOURS ORAL 01/26/19 09:00 02/25/19 08:59 01/28/19 08:50 Heparin Sodium (Porcine) (Heparin 5000 units/ml) 5,000 units EVERY 12 HOURS SUBQ 01/26/19 09:00 02/25/19 08:59 01/27/19 20:58 Hydralazine HCl (Apresoline) 75 mg Q8HR ORAL 01/26/19 06:00 02/25/19 05:59 01/28/19 14:44 Insulin Aspart (NovoLOG) BEFORE MEALS AND HS SUBQ 01/26/19 06:30 02/25/19 06:29 01/28/19 11:40 Lisinopril (Prinivil) 20 mg BID ORAL 01/26/19 09:00 02/25/19 08:59 01/28/19 08:48 Lorazepam (Ativan) 2 mg Q8H PRN ORAL Agitation 01/26/19 10:45 02/02/19 10:44 01/28/19 06:45 Minoxidil (Loniten) 2.5 mg Q4H PRN ORAL bp over 170 syst 01/26/19 10:29 02/25/19 10:28 Tamsulosin HCl (Flomax) 0.4 mg BID ORAL 01/26/19 18:00 02/25/19 08:59 01/28/19 08:48 Allergies: Coded Allergies: AMLODIPINE (Verified Allergy, Unknown, 01/25/19) ROS Limited/Unobtainable: No Constitutional: Reports: no symptoms HEENT: Reports: no symptoms Cardiovascular: Reports: no symptoms Respiratory: Reports: no symptoms Gastrointestinal/Abdominal: Reports: no symptoms Genitourinary: Reports: no symptoms Neurologic/Psychiatric: Reports: no symptoms Subjective 58 YO M admitted with head and neck pain due to fall injury. Cover for Int Med- DR Londono. Refusing meds Objective Last Vital Signs Date Time Temp Pulse Resp B/P (MAP) Pulse Ox O2 Delivery O2 Flow Rate FiO2 01/28/19 14:44 140/74 01/28/19 13:56 97.1 01/28/19 12:00 72 20 96 01/28/19 08:04 Nasal Cannula 2.0 General Appearance: WD/WN, no apparent distress, alert EENT: PERRL/EOMI, normal ENT inspection Neck: non-tender, normal alignment, supple, normal inspection Cardiovascular: normal peripheral pulses, normal rate, regular rhythm, no gallop/murmur, no JVD Respiratory/Chest: chest wall non-tender, lungs clear, normal breath sounds, no respiratory distress, no accessory muscle use Abdomen: normal bowel sounds, non tender, soft, no organomegaly, no mass Extremities: normal range of motion, non-tender Neurologic: instructor nurse II-XII grossly normal, no motor/sensory deficits Skin: normal pigmentation, warm/dry Laboratory Tests Test 01/28/19 01:27 01/28/19 06:15 01/28/19 08:35 Urine Eosinophils Occasional (NONE SEEN) Sodium Level 139 MMOL/L (136-145) Potassium Level 4.4 MMOL/L (3.5-5.1) Chloride Level 106 MMOL/L (98-107) Carbon Dioxide Level 25 MMOL/L (21-32) Anion Gap 8 mmol/L (5-15) Blood Urea Nitrogen 39 mg/dL (7-18) H Creatinine 2.2 MG/DL (0.55-1.30) H Estimat Glomerular Filtration Rate 37.5 mL/min (>60) Glucose Level 110 MG/DL (74-106) H Calcium Level 8.5 MG/DL (8.5-10.1) White Blood Count 5.4 K/UL (4.8-10.8) Red Blood Count 3.93 M/UL (4.70-6.10) L Hemoglobin 9.9 G/DL (14.2-18.0) L Hematocrit 31.7 % (42.0-52.0) L Mean Corpuscular Volume 81 FL (80-99) Mean Corpuscular Hemoglobin 25.3 PG (27.0-31.0) L Mean Corpuscular Hemoglobin Concent 31.4 G/DL (32.0-36.0) L Red Cell Distribution Width 15.7 % (11.6-14.8) H Platelet Count 169 K/UL (150-450) Mean Platelet Volume 8.6 FL (6.5-10.1) Neutrophils (%) (Auto) 64.1 % (45.0-75.0) Lymphocytes (%) (Auto) 22.6 % (20.0-45.0) Monocytes (%) (Auto) 6.9 % (1.0-10.0) Eosinophils (%) (Auto) 5.6 % (0.0-3.0) H Basophils (%) (Auto) 0.8 % (0.0-2.0) Microbiology Date/Time Source Procedure Growth Status 01/26/19 02:55 Nasal Nares MRSA Culture - Final Staphylococcus Aureus - Mrsa Complete 01/26/19 00:40 Urine,Clean Catch Urine Culture - Final Escherichia Coli Complete 01/26/19 02:55 Rectum VRE Culture - Final Enterococcus Faecalis - Vre Complete Intake and Output 01/27/19 01/28/19 19:00 07:00 Intake Total 826 ml 480 ml Output Total 400 ml Balance 426 ml 480 ml Intake Oral 826 ml 480 ml Output Urine Total 400 ml # Voids 4 3 # Bowel Movements 2 4 Assessment/Plan Problem List: (1) Diabetes mellitus type II, controlled Assessment & Plan: continue novolog sliding scale (2) Diabetic neuropathy (3) Headache Assessment & Plan: CT brain normal (4) Neck pain Assessment & Plan: CT spine normal (5) HTN (hypertension) Assessment & Plan: continue lisinopril (6) Acute encephalopathy (7) Severe anemia Assessment & Plan: S/P transfusion 1 unit PRBC 01/27/19 Mathew Benoit MD Jan 28, 2019 15:58
[2019-01-28 16:00] VITALS: BP 139/74
--- NOTE | 2019-01-28 16:49 | NUR ---
[facility] RN SI:ACUTE ENCEPHALOPATHY . HTN . ACUTE ON CHRONIC RENAL FAILURE VS: BP 143/73, P 73, T 97.3, RR 20, SpO2 94 RBC 3.93, HgB 9.9, Hct 31.7, BUN 39, CR 2.2 IS:LIPITOR 40mg FLOMAX 0.4mg CATAPRES 0.2mg CARDIZEM 60mg ATIVAN 2mg COREG 25mg CYMBALTA 60mg PROSCAR 5mg GABAPENTIN 600mg LISINOPRIL 20mg MED/SURG STATUS
--- NOTE | 2019-01-28 18:45 | NUR ---
NURSE NOTES: Pt became aggressive during lunch time notified
--- NOTE | 2019-01-28 19:14 | NUR ---
HAND-OFF: Report given to Elvira Voss.
--- NOTE | 2019-01-28 19:28 | NUR ---
NURSE NOTES: Received report from KAREN Conteh. Patient is awake lying semi-yusuf's watching TV; resting comfortably. No signs of acute distress noted; complains of pain. On 2L nasal cannula. AOx4; able to make needs known. Checked IV site; patent and flushed. No erythema, bleeding, or infiltration noted. Bed at lowest position, brakes on, siderails up x3. Call light within reach. Will continue to monitor.
[2019-01-28 20:00] VITALS: BP 151/70
[2019-01-28] MEDS: Atorvastatin 20mg tab ORAL SCH (21:39)
--- NOTE | 2019-01-28 23:12 | NUR ---
HAND-OFF: Report given to KAREN Naranjo. Patient is awake lying semi-yusuf's watching TV; resting comfortably. In stable condition.
--- NOTE | 2019-01-28 23:30 | NUR ---
NURSE NOTES: Pt report has been received from Mendy JONES.Pt is alert and oriented times 4. Pt appear to be resting comfortably in bed with no distress noted. Pt has a monitoring analyst on, and is active. Pt has no signs or symptoms of cardiac distress noted. Pt has a Nasal Canula running 2L O2 and is saturating at 98%, no distress noted. Pt has a Right AC 22G that is patent and is flushing with no complications/ no abnormalities noted. All safety precautions are in affect, such as bed is in lowest position, side rails are up times 3, call light is within easy reach, bed alarm is active. Will continue plan of care.
[2019-01-29] VITALS: BP 148/70
--- NOTE | 2019-01-29 01:14 | NUR ---
HAND-OFF: Report given to Jas JONES. Pt is stable.
--- NOTE | 2019-01-29 01:30 | NUR ---
pt transffered from 2east via bed with stable condition. oxygen at 2L VIA NASAL CANULA.CALL LIGHT IN REACH TO PT.NO DISTRESS NOTED
[2019-01-29] MEDS: LORazepam 1mg tab ORAL PRN ×3 (02:18→21:25)
[2019-01-29] MEDS ORDERED: Minoxidil 2.5mg tab ORAL PRN (02:30)
[2019-01-29 04:00] VITALS: BP 150/73
[2019-01-29] MEDS: HydrALAZINE 25mg tab ORAL SCH ×3 (06:10→21:35)
[2019-01-29] MEDS: dilTIAZem HCl 60mg tab ORAL SCH ×3 (06:11→17:37)
[2019-01-29] MEDS: cloNIDine 0.2mg Tab ORAL SCH ×3 (06:11→21:35)
[2019-01-29] MEDS: NovoLOG Insulin Flexpen SUBQ SCH ×4 (06:14→21:34)
--- NOTE | 2019-01-29 07:30 | NUR ---
HAND-OFF: Report given to JAJA JONES.
[2019-01-29 07:49] LABS: BASOPHILS % (AUTO) 0.9 % (0.0-2.0); HEMATOCRIT 28.3 % (42.0-52.0); HEMOGLOBIN 8.9 G/DL (14.2-18.0); LYMPHOCYTES % (AUTO) 25.9 % (20.0-45.0); MEAN CORPUSCULAR VOLUME 81 FL (80-99); NEUTROPHILS % (AUTO) 58.2 % (45.0-75.0); PLATELET COUNT 164 K/UL (150-450); RED CELL DISTRIBUTION WIDTH 15.6 % (11.6-14.8); WHITE BLOOD COUNT 4.8 K/UL (4.8-10.8)
[2019-01-29 08:00] VITALS: BP 139/76
--- NOTE | 2019-01-29 08:15 | NUR ---
NURSE NOTES: Patient is asleep. Patient is on 2 liters oxygen via nasal cannula. Bed alarm is on, bed is locked, side rails are up x2, and call light is within reach. Will continue to monitor.
[2019-01-29 08:17] LABS: ANION GAP 6 mmol/L (5-15); BLOOD UREA NITROGEN 35 mg/dL (7-18); CALCIUM 8.3 MG/DL (8.5-10.1); CARBON DIOXIDE 28 MMOL/L (21-32); CHLORIDE 106 MMOL/L (98-107); CREATININE 2.1 MG/DL (0.55-1.30); POTASSIUM 4.2 MMOL/L (3.5-5.1); SODIUM 140 MMOL/L (136-145)
[2019-01-29] MEDS: DULoxetine 30mg cap ORAL SCH (09:12)
[2019-01-29] MEDS: Tamsulosin 0.4mg cap ORAL SCH ×2 (09:12→17:35)
[2019-01-29] MEDS: Aspirin EC 81mg tab ORAL SCH (09:13)
[2019-01-29] MEDS: Docusate 100mg cap ORAL SCH ×3 (09:13→17:35)
[2019-01-29] MEDS: Carvedilol 25mg Tab ORAL SCH ×2 (09:13→20:52)
[2019-01-29] MEDS: Lisinopril 20mg tab ORAL SCH ×2 (09:14→17:37)
[2019-01-29] MEDS: Heparin 5000 units/ml inj SUBQ SCH ×2 (09:15→21:34)
[2019-01-29] MEDS: HYDROcodone/Acetamin 10/325 tab ORAL PRN ×3 (09:23→20:04)
--- NOTE | 2019-01-29 11:36 | Nephrology Progress Note ---
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 DC Subjective ROS Limited/Unobtainable: No Constitutional: Reports: malaise Objective Objective Last 24 Hour Vital Signs Date Time Temp Pulse Resp B/P (MAP) Pulse Ox O2 Delivery O2 Flow Rate FiO2 01/29/19 09:14 139/76 01/29/19 09:13 74 139/76 01/29/19 08:45 Nasal Cannula 2.0 01/29/19 08:00 97.5 74 17 139/76 (97) 100 01/29/19 06:11 69 150/73 01/29/19 06:11 150/73 01/29/19 06:10 150/73 01/29/19 04:00 98.2 69 18 150/73 (98) 99 01/29/19 00:00 98.1 72 18 148/70 (96) 99 01/29/19 00:00 72 01/28/19 23:34 72 148/70 01/28/19 21:40 151/70 01/28/19 21:39 151/70 01/28/19 21:39 74 151/70 01/28/19 21:00 Nasal Cannula 2.0 01/28/19 20:00 97.9 74 20 151/70 (97) 100 01/28/19 20:00 74 01/28/19 17:17 72 139/74 01/28/19 17:16 139/74 01/28/19 16:00 97.3 70 20 139/74 (95) 94 01/28/19 15:37 73 01/28/19 14:44 140/74 01/28/19 13:56 97.1 01/28/19 13:24 143/73 01/28/19 12:00 97.1 72 20 143/73 (96) 96 01/28/19 11:42 73 150/74 Intake and Output 01/28/19 01/29/19 19:00 07:00 Intake Total 920 ml 480 ml Output Total 600 ml Balance 320 ml 480 ml Intake Oral 920 ml 480 ml Output Urine Total 600 ml # Voids 5 # Bowel Movements 2 Laboratory Tests 01/29/19 07:24: White Blood Count 4.8, Red Blood Count 3.50L, Hemoglobin 8.9L, Hematocrit 28.3L , Mean Corpuscular Volume 81, Mean Corpuscular Hemoglobin 25.3L, Mean Corpuscular Hemoglobin Concent 31.3L, Red Cell Distribution Width 15.6H, Platelet Count 164, Mean Platelet Volume 7.5, Neutrophils (%) (Auto) 58.2, Lymphocytes (%) (Auto) 25.9, Monocytes (%) (Auto) 9.0, Eosinophils (%) (Auto) 6.0H, Basophils (%) (Auto) 0.9, Sodium Level 140, Potassium Level 4.2, Chloride Level 106, Carbon Dioxide Level 28, Anion Gap 6, Blood Urea Nitrogen 35H, Creatinine 2.1H, Estimat Glomerular Filtration Rate 39.5, Glucose Level 123H, Calcium Level 8.3L Height (Feet): 6 Height (Inches): 1.00 Weight (Pounds): 280 General Appearance: no apparent distress Objective no change Delroy Chin MD Jan 29, 2019 11:36
[2019-01-29 12:00] VITALS: BP 142/76
--- NOTE | 2019-01-29 12:10 | Pulmonology Progress Note ---
Assessment/Plan Problems: (1) Accident due to mechanical fall without injury (2) Acute encephalopathy (3) Sleep apnea (4) HTN (hypertension) (5) Diabetes (6) Diabetic nephropathy Assessment/Plan no new complains symptomatic treatment doing better Subjective ROS Limited/Unobtainable: No Constitutional: Reports: no symptoms HEENT: Repors: no symptoms Respiratory: Reports: no symptoms Allergies: Coded Allergies: AMLODIPINE (Verified Allergy, Unknown, 01/25/19) Objective Last 24 Hour Vital Signs Date Time Temp Pulse Resp B/P (MAP) Pulse Ox O2 Delivery O2 Flow Rate FiO2 01/29/19 09:14 139/76 01/29/19 09:13 74 139/76 01/29/19 08:45 Nasal Cannula 2.0 01/29/19 08:00 97.5 74 17 139/76 (97) 100 01/29/19 06:11 69 150/73 01/29/19 06:11 150/73 01/29/19 06:10 150/73 01/29/19 04:00 98.2 69 18 150/73 (98) 99 01/29/19 00:00 98.1 72 18 148/70 (96) 99 01/29/19 00:00 72 01/28/19 23:34 72 148/70 01/28/19 21:40 151/70 01/28/19 21:39 151/70 01/28/19 21:39 74 151/70 01/28/19 21:00 Nasal Cannula 2.0 01/28/19 20:00 97.9 74 20 151/70 (97) 100 01/28/19 20:00 74 01/28/19 17:17 72 139/74 01/28/19 17:16 139/74 01/28/19 16:00 97.3 70 20 139/74 (95) 94 01/28/19 15:37 73 01/28/19 14:44 140/74 01/28/19 13:56 97.1 01/28/19 13:24 143/73 Intake and Output 01/28/19 01/29/19 19:00 07:00 Intake Total 920 ml 480 ml Output Total 600 ml Balance 320 ml 480 ml Intake Oral 920 ml 480 ml Output Urine Total 600 ml # Voids 5 # Bowel Movements 2 Objective General Appearance: WD/WN HEENT: normocephalic, atraumatic Respiratory/Chest: chest wall non-tender, crackles/rales Cardiovascular: normal peripheral pulses, arrhythmia Abdomen: normal bowel sounds, soft, non tender Genitourinary: normal external genitalia Extremities: no clubbing Skin: no rash, no ulcers Neurologic/Psychiatric: billing representative II-XII grossly normal Microbiology Date/Time Source Procedure Growth Status 01/28/19 14:30 Stool Clostridium difficile Toxin Assay - Final Complete Laboratory Tests 01/29/19 07:24: White Blood Count 4.8, Red Blood Count 3.50L, Hemoglobin 8.9L, Hematocrit 28.3L , Mean Corpuscular Volume 81, Mean Corpuscular Hemoglobin 25.3L, Mean Corpuscular Hemoglobin Concent 31.3L, Red Cell Distribution Width 15.6H, Platelet Count 164, Mean Platelet Volume 7.5, Neutrophils (%) (Auto) 58.2, Lymphocytes (%) (Auto) 25.9, Monocytes (%) (Auto) 9.0, Eosinophils (%) (Auto) 6.0H, Basophils (%) (Auto) 0.9, Sodium Level 140, Potassium Level 4.2, Chloride Level 106, Carbon Dioxide Level 28, Anion Gap 6, Blood Urea Nitrogen 35H, Creatinine 2.1H, Estimat Glomerular Filtration Rate 39.5, Glucose Level 123H, Calcium Level 8.3L Current Medications Medications (Trade) Dose Ordered Sig/Hong Route PRN Reason Start Time Stop Time Status Last Admin Dose Admin Acetaminophen (Tylenol) 650 mg Q4H PRN ORAL Mild Pain/Temp > 100.5 01/29/19 02:00 02/25/19 01:59 Acetaminophen/ Hydrocodone Bitart ([place] 10/325) 1 tab FOUR TIMES A DAY PRN ORAL Prn Chest Pain 01/29/19 09:00 02/02/19 04:59 01/29/19 09:23 Aspirin (Ecotrin) 81 mg DAILY ORAL 01/29/19 09:00 02/25/19 08:59 01/29/19 09:13 Atorvastatin Calcium (Lipitor) 40 mg BEDTIME ORAL 01/29/19 21:00 02/25/19 20:59 Baclofen (Lioresal) 10 mg FOUR TIMES A DAY ORAL 01/29/19 09:00 02/25/19 08:59 01/29/19 09:12 Carvedilol (Coreg) 25 mg EVERY 12 HOURS ORAL 01/29/19 09:00 02/25/19 08:59 01/29/19 09:13 Clonidine HCl (Catapres tab) 0.2 mg Q8HR ORAL 01/29/19 06:00 02/25/19 05:59 01/29/19 06:11 Dextrose (Dextrose 50%) 25 ml Q30M PRN IV Hypoglycemia 01/29/19 01:45 02/25/19 05:14 Dextrose (Dextrose 50%) 50 ml Q30M PRN IV Hypoglycemia 01/29/19 01:45 02/25/19 05:14 Diltiazem HCl (Cardizem) 60 mg EVERY 6 HOURS ORAL 01/29/19 06:00 02/25/19 05:59 01/29/19 06:11 Docusate Sodium (Colace) 100 mg TID ORAL 01/29/19 09:00 02/25/19 08:59 01/29/19 09:13 Duloxetine HCl (Cymbalta) 60 mg DAILY ORAL 01/29/19 09:00 02/25/19 08:59 01/29/19 09:12 Finasteride (Proscar) 5 mg DAILY ORAL 01/29/19 09:00 02/25/19 08:59 01/29/19 09:13 Gabapentin (Neurontin) 600 mg EVERY 12 HOURS ORAL 01/29/19 09:00 02/25/19 08:59 01/29/19 09:14 Heparin Sodium (Porcine) (Heparin 5000 units/ml) 5,000 units EVERY 12 HOURS SUBQ 01/29/19 09:00 02/25/19 08:59 01/29/19 09:15 Hydralazine HCl (Apresoline) 75 mg Q8HR ORAL 01/29/19 06:00 02/25/19 05:59 01/29/19 06:10 Insulin Aspart (NovoLOG) BEFORE MEALS AND HS SUBQ 01/29/19 06:30 02/25/19 06:29 01/29/19 06:14 Lisinopril (Prinivil) 20 mg BID ORAL 01/29/19 09:00 02/25/19 08:59 01/29/19 09:14 Lorazepam (Ativan) 2 mg Q8H PRN ORAL Agitation 01/29/19 02:45 02/02/19 10:44 01/29/19 02:18 Minoxidil (Loniten) 2.5 mg Q4H PRN ORAL bp over 170 syst 01/29/19 02:30 02/25/19 10:28 Tamsulosin HCl (Flomax) 0.4 mg BID ORAL 01/29/19 09:00 02/25/19 08:59 01/29/19 09:12 Alexis Cuenca MD Jan 29, 2019 12:10
--- NOTE | 2019-01-29 12:15 | NUR ---
Social Service Note GRETA attempted multiple times to speak with the administrated at [facility], . GRETA spoke with [facility] food service coordinator who gave SW varies times to call [facility] to discuss acceptance of patient. On the third follow up call at 12:00 GRETA was informed that [facility]ORINA was not in the office today. GRETA left a message for KORINA on his personal number which he has provided [facility] regarding his residents [phone]. No return call. [facility] refusing to accept patient unless approved by [facility] administrator.
--- NOTE | 2019-01-29 14:11 | NUR ---
*-* INSURANCE *-* ALL CLINICALS AND REVIEWS HAVE BEEN FAXED TO: [facility] P- [phone] F- [phone]....REVIEW/CLINICAL
[2019-01-29 16:00] VITALS: BP 142/66
--- NOTE | 2019-01-29 16:56 | NUR ---
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 HTN . ACUTE ON CHRONIC RENAL FAILURE VS: BP 143/73, P 73, T 97.3, RR 20, SpO2 94 RBC 3.93, HgB 9.9, Hct 31.7, BUN 39, CR 2.2 IS:BACLOFEN 10mg COREG 25mg CYMBALTA 60mg PROSCAR 5mg GABAPENTIN 600mg HEPARIN SUBQ NORCO 10/325 1tab PRINIVIL 20mg FLOMAX 0.4mg CLONIDINE HCI 0.2mg CARDIZEM 60mg APRESOLINE 75mg ATIVAN 2mg MED/SURG STATUS
--- NOTE | 2019-01-29 19:31 | NUR ---
HAND-OFF: Report given to KAREN Escobar.
--- NOTE | 2019-01-29 19:40 | Internal Med Progress Note ---
Subjective Date of Service: Jan 29, 2019 Physician Name Mathew Benoit Attending Physician Michael Londono MD Current Medications Medications (Trade) Dose Ordered Sig/Hong Route PRN Reason Start Time Stop Time Status Last Admin Dose Admin Acetaminophen (Tylenol) 650 mg Q4H PRN ORAL Mild Pain/Temp > 100.5 01/29/19 02:00 02/25/19 01:59 Acetaminophen/ Hydrocodone Bitart ([place] 10/325) 1 tab FOUR TIMES A DAY PRN ORAL Prn Chest Pain 01/29/19 09:00 02/02/19 04:59 01/29/19 15:20 Aspirin (Ecotrin) 81 mg DAILY ORAL 01/29/19 09:00 02/25/19 08:59 01/29/19 09:13 Atorvastatin Calcium (Lipitor) 40 mg BEDTIME ORAL 01/29/19 21:00 02/25/19 20:59 Baclofen (Lioresal) 10 mg FOUR TIMES A DAY ORAL 01/29/19 09:00 02/25/19 08:59 01/29/19 17:35 Carvedilol (Coreg) 25 mg EVERY 12 HOURS ORAL 01/29/19 09:00 02/25/19 08:59 01/29/19 09:13 Clonidine HCl (Catapres tab) 0.2 mg Q8HR ORAL 01/29/19 06:00 02/25/19 05:59 01/29/19 14:34 Dextrose (Dextrose 50%) 25 ml Q30M PRN IV Hypoglycemia 01/29/19 01:45 02/25/19 05:14 Dextrose (Dextrose 50%) 50 ml Q30M PRN IV Hypoglycemia 01/29/19 01:45 02/25/19 05:14 Diltiazem HCl (Cardizem) 60 mg EVERY 6 HOURS ORAL 01/29/19 06:00 02/25/19 05:59 01/29/19 12:50 Docusate Sodium (Colace) 100 mg TID ORAL 01/29/19 09:00 02/25/19 08:59 01/29/19 09:13 Duloxetine HCl (Cymbalta) 60 mg DAILY ORAL 01/29/19 09:00 02/25/19 08:59 01/29/19 09:12 Finasteride (Proscar) 5 mg DAILY ORAL 01/29/19 09:00 02/25/19 08:59 01/29/19 09:13 Gabapentin (Neurontin) 600 mg EVERY 12 HOURS ORAL 01/29/19 09:00 02/25/19 08:59 01/29/19 09:14 Heparin Sodium (Porcine) (Heparin 5000 units/ml) 5,000 units EVERY 12 HOURS SUBQ 01/29/19 09:00 02/25/19 08:59 01/29/19 09:15 Hydralazine HCl (Apresoline) 75 mg Q8HR ORAL 01/29/19 06:00 02/25/19 05:59 01/29/19 14:34 Insulin Aspart (NovoLOG) BEFORE MEALS AND HS SUBQ 01/29/19 06:30 02/25/19 06:29 01/29/19 17:36 Lisinopril (Prinivil) 20 mg BID ORAL 01/29/19 09:00 02/25/19 08:59 01/29/19 09:14 Lorazepam (Ativan) 2 mg Q8H PRN ORAL Agitation 01/29/19 02:45 02/02/19 10:44 01/29/19 12:56 Minoxidil (Loniten) 2.5 mg Q4H PRN ORAL bp over 170 syst 01/29/19 02:30 02/25/19 10:28 Tamsulosin HCl (Flomax) 0.4 mg BID ORAL 01/29/19 09:00 02/25/19 08:59 01/29/19 17:35 Allergies: Coded Allergies: AMLODIPINE (Verified Allergy, Unknown, 01/25/19) ROS Limited/Unobtainable: Yes Subjective 58 YO M admitted with head and neck pain due to fall injury. Cover for Int Med- DR Londono. Refusing meds Objective Last Vital Signs Date Time Temp Pulse Resp B/P (MAP) Pulse Ox O2 Delivery O2 Flow Rate FiO2 01/29/19 17:37 119/75 01/29/19 17:37 78 01/29/19 16:00 98.6 18 100 01/29/19 08:45 Nasal Cannula 2.0 Laboratory Tests Test 01/29/19 07:24 White Blood Count 4.8 K/UL (4.8-10.8) Red Blood Count 3.50 M/UL (4.70-6.10) L Hemoglobin 8.9 G/DL (14.2-18.0) L Hematocrit 28.3 % (42.0-52.0) L Mean Corpuscular Volume 81 FL (80-99) Mean Corpuscular Hemoglobin 25.3 PG (27.0-31.0) L Mean Corpuscular Hemoglobin Concent 31.3 G/DL (32.0-36.0) L Red Cell Distribution Width 15.6 % (11.6-14.8) H Platelet Count 164 K/UL (150-450) Mean Platelet Volume 7.5 FL (6.5-10.1) Neutrophils (%) (Auto) 58.2 % (45.0-75.0) Lymphocytes (%) (Auto) 25.9 % (20.0-45.0) Monocytes (%) (Auto) 9.0 % (1.0-10.0) Eosinophils (%) (Auto) 6.0 % (0.0-3.0) H Basophils (%) (Auto) 0.9 % (0.0-2.0) Sodium Level 140 MMOL/L (136-145) Potassium Level 4.2 MMOL/L (3.5-5.1) Chloride Level 106 MMOL/L (98-107) Carbon Dioxide Level 28 MMOL/L (21-32) Anion Gap 6 mmol/L (5-15) Blood Urea Nitrogen 35 mg/dL (7-18) H Creatinine 2.1 MG/DL (0.55-1.30) H Estimat Glomerular Filtration Rate 39.5 mL/min (>60) Glucose Level 123 MG/DL (74-106) H Calcium Level 8.3 MG/DL (8.5-10.1) L Microbiology Date/Time Source Procedure Growth Status 01/28/19 14:30 Stool Clostridium difficile Toxin Assay - Final Complete Intake and Output 01/28/19 01/29/19 19:00 07:00 Intake Total 920 ml 480 ml Output Total 600 ml Balance 320 ml 480 ml Intake Oral 920 ml 480 ml Output Urine Total 600 ml # Voids 5 # Bowel Movements 2 Objective General Appearance: WD/WN, no apparent distress, alert EENT: PERRL/EOMI, normal ENT inspection Neck: non-tender, normal alignment, supple, normal inspection Cardiovascular: normal peripheral pulses, normal rate, regular rhythm, no gallop/murmur, no JVD Respiratory/Chest: chest wall non-tender, lungs clear, normal breath sounds, no respiratory distress, no accessory muscle use Abdomen: normal bowel sounds, non tender, soft, no organomegaly, no mass Extremities: normal range of motion, non-tender Neurologic: legend maker II-XII grossly normal, no motor/sensory deficits Skin: normal pigmentation, warm/dry Assessment/Plan Problem List: (1) Diabetes mellitus type II, controlled Assessment & Plan: continue novolog sliding scale (2) Diabetic neuropathy (3) Headache Assessment & Plan: CT brain normal (4) Neck pain Assessment & Plan: CT spine normal (5) HTN (hypertension) Assessment & Plan: continue lisinopril (6) Acute encephalopathy (7) Severe anemia Assessment & Plan: S/P transfusion 1 unit PRBC 01/27/19 Assessment/Plan Discharge planning: [facility] Mathew Benoit MD Jan 29, 2019 19:40
[2019-01-29 20:00] VITALS: BP 108/72
--- NOTE | 2019-01-29 20:00 | NUR ---
NURSE NOTES: Patient received in bed, awake and alert, talkative. C/o pain, will medicate as prescribed. IV site intact and patent. Patient refused to wear yellow socks. FWW at bedside, instructed patient to call for assistance prior to standing up. Call light in reach. Will continue to [facility].
[2019-01-29] MEDS: Atorvastatin 20mg tab ORAL SCH (21:21)
[2019-01-30] VITALS: BP 156/88
--- NOTE | 2019-01-30 | NUR ---
NURSE NOTES: Patient requested to go down to smoke. Explained to patient hospital policy and that [facility] – [place] is a non-smoking facility. Patient continued to insist. Charge nurse made aware and spoke with patient. Patient verbalized understanding.
[2019-01-30] MEDS: dilTIAZem HCl 60mg tab ORAL SCH ×4 (01:09→17:14)
[2019-01-30] MEDS: HYDROcodone/Acetamin 10/325 tab ORAL PRN ×2 (01:11→22:20)
[2019-01-30 04:00] VITALS: BP 150/85
[2019-01-30] MEDS: HydrALAZINE 25mg tab ORAL SCH ×3 (06:25→22:19)
[2019-01-30] MEDS: cloNIDine 0.2mg Tab ORAL SCH ×3 (06:25→22:18)
[2019-01-30] MEDS: NovoLOG Insulin Flexpen SUBQ SCH ×4 (06:28→22:22)
[2019-01-30] MEDS: LORazepam 1mg tab ORAL PRN ×2 (06:44→15:15)
--- NOTE | 2019-01-30 07:16 | NUR ---
HAND-OFF: Report given to Jeannette Wood .
--- NOTE | 2019-01-30 07:45 | NUR ---
NURSE NOTES: received patient A/A/Ox4, sitting on the edge of the bed. refused to wear the yellow socks. Explained the importance and patient remained refused. FWW @ bedside. No acute resp distress noted. Has an adequate amount of food intake. BLE edematous and instructed to keep BLE elevated. No c/o of pain/discomfort noted. call light is within reach. bed lock and siderails are up x3 for safety precautions. will cont to monitor.
[2019-01-30 08:00] VITALS: BP 126/55
[2019-01-30 08:07] LABS: BASOPHILS % (AUTO) 1.1 % (0.0-2.0); EOSINOPHILS % (AUTO) 5.8 % (0.0-3.0); HEMATOCRIT 31.4 % (42.0-52.0); HEMOGLOBIN 9.9 G/DL (14.2-18.0); LYMPHOCYTES % (AUTO) 24.1 % (20.0-45.0); MEAN CORPUSCULAR VOLUME 81 FL (80-99); PLATELET COUNT 174 K/UL (150-450); RED BLOOD COUNT 3.89 M/UL (4.70-6.10); RED CELL DISTRIBUTION WIDTH 15.8 % (11.6-14.8); WHITE BLOOD COUNT 5.2 K/UL (4.8-10.8)
[2019-01-30] MEDS: Docusate 100mg cap ORAL SCH ×3 (08:22→17:21)
[2019-01-30] MEDS: Lisinopril 20mg tab ORAL SCH ×2 (08:22→17:14)
[2019-01-30] MEDS: Carvedilol 25mg Tab ORAL SCH ×2 (08:23→22:18)
[2019-01-30] MEDS: Tamsulosin 0.4mg cap ORAL SCH ×2 (08:23→17:14)
[2019-01-30] MEDS: Aspirin EC 81mg tab ORAL SCH (08:23)
[2019-01-30] MEDS: DULoxetine 30mg cap ORAL SCH (08:23)
[2019-01-30] MEDS: Heparin 5000 units/ml inj SUBQ SCH ×2 (08:29→22:21)
[2019-01-30 08:33] LABS: ANION GAP 9 mmol/L (5-15); BLOOD UREA NITROGEN 38 mg/dL (7-18); CALCIUM 8.8 MG/DL (8.5-10.1); CARBON DIOXIDE 25 MMOL/L (21-32); CHLORIDE 103 MMOL/L (98-107); POTASSIUM 4.4 MMOL/L (3.5-5.1); SODIUM 137 MMOL/L (136-145)
[2019-01-30 12:00] VITALS: BP 152/73
--- NOTE | 2019-01-30 13:18 | NUR ---
NURSE NOTES: PATIENT DOES NOT WANT NORCO, STATED THAT HAS NO EFFECT. SPOKE WITH DR DIEHL REGARDING PATIENT'S CONCERNED. WILL CONT TO MONITOR.
--- NOTE | 2019-01-30 14:34 | NUR ---
*-* INSURANCE *-* UPDATED CLINICALS AND REVIEWS HAVE BEEN FAXED TO: [facility] P- [phone] F- [phone]....REVIEW/CLINICAL
--- NOTE | 2019-01-30 15:48 | Nephrology Progress Note ---
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 DC Subjective ROS Limited/Unobtainable: No Objective Objective Last 24 Hour Vital Signs Date Time Temp Pulse Resp B/P (MAP) Pulse Ox O2 Delivery O2 Flow Rate FiO2 01/30/19 15:08 147/76 01/30/19 14:00 146/76 01/30/19 13:00 Room Air 01/30/19 12:42 68 152/73 01/30/19 12:00 96.8 68 22 152/73 (99) 99 01/30/19 09:00 Nasal Cannula 2.0 01/30/19 08:23 88 126/55 01/30/19 08:22 126/55 01/30/19 08:00 96.1 88 20 126/55 (78) 98 01/30/19 06:25 170/89 01/30/19 06:25 74 170/89 01/30/19 06:25 170/89 01/30/19 04:00 98.9 74 18 150/85 (106) 95 01/30/19 01:42 98.6 01/30/19 01:09 72 145/87 01/30/19 00:00 98.6 92 19 156/88 (110) 95 01/29/19 21:35 108/72 01/29/19 21:35 108/72 01/29/19 21:00 Nasal Cannula 2.0 01/29/19 20:52 72 108/72 01/29/19 20:00 98.2 72 19 108/72 (84) 95 01/29/19 17:37 119/75 01/29/19 17:37 78 119/75 01/29/19 16:00 98.6 74 18 142/66 (91) 100 Intake and Output 01/29/19 01/30/19 19:00 07:00 Intake Total 980 ml Output Total 850 ml Balance 130 ml Other 980 ml Output Urine Total 850 ml Laboratory Tests 01/30/19 07:02: White Blood Count 5.2, Red Blood Count 3.89L, Hemoglobin 9.9L, Hematocrit 31.4L , Mean Corpuscular Volume 81, Mean Corpuscular Hemoglobin 25.4L, Mean Corpuscular Hemoglobin Concent 31.4L, Red Cell Distribution Width 15.8H, Platelet Count 174, Mean Platelet Volume 7.6, Neutrophils (%) (Auto) 62.0, Lymphocytes (%) (Auto) 24.1, Monocytes (%) (Auto) 7.0, Eosinophils (%) (Auto) 5.8H, Basophils (%) (Auto) 1.1, Sodium Level 137, Potassium Level 4.4, Chloride Level 103, Carbon Dioxide Level 25, Anion Gap 9, Blood Urea Nitrogen 38H, Creatinine 2.0H, Estimat Glomerular Filtration Rate 41.8, Glucose Level 158H, Calcium Level 8.8 Height (Feet): 6 Height (Inches): 1.00 Weight (Pounds): 280 General Appearance: no apparent distress Cardiovascular: normal rate Respiratory/Chest: decreased breath sounds Abdomen: other - obese Objective no change Delroy Chin MD Jan 30, 2019 15:48
[2019-01-30 16:00] VITALS: BP 150/77
--- NOTE | 2019-01-30 16:00 | NUR ---
NURSE NOTES: wound drsg noted per protocol on right buttock due to excoriation/erosion. will cont to monitor.
--- NOTE | 2019-01-30 16:15 | NUR ---
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 HTN . ACUTE ON CHRONIC RENAL FAILURE VS: BP 152/73, P 68, T 96.8, RR 22, SpO2 99 RBC 3.89, Hgb 9.9, Hct 31.4, BUN 38, CR 2.0 IS: LIPITOR 40mg BACLOFEN 10mg COREG 25mg CYMBALTA 60mg PROSCAR 5mg GABAPENTIN 600mg HEPARIN SUBQ [place] 10/325 1tab PRINIVIL 20mg FLOMAX 0.4mg NOVOLOG SUBQ CLONIDINE HCI 0.2mg CARDIZEM 60mg APRESOLINE 75mg ATIVAN 2mg MED/SURG STATUS
--- NOTE | 2019-01-30 18:30 | Internal Med Progress Note ---
Subjective Date of Service: Jan 30, 2019 Physician Name Mathew Benoit Attending Physician Michael Londono MD Current Medications Medications (Trade) Dose Ordered Sig/Hong Route PRN Reason Start Time Stop Time Status Last Admin Dose Admin Acetaminophen (Tylenol) 650 mg Q4H PRN ORAL Mild Pain/Temp > 100.5 01/29/19 02:00 02/25/19 01:59 Acetaminophen/ Hydrocodone Bitart ([place] 10/325) 1 tab FOUR TIMES A DAY PRN ORAL Prn Chest Pain 01/29/19 09:00 02/02/19 04:59 01/30/19 01:11 Aspirin (Ecotrin) 81 mg DAILY ORAL 01/29/19 09:00 02/25/19 08:59 01/30/19 08:23 Atorvastatin Calcium (Lipitor) 40 mg BEDTIME ORAL 01/29/19 21:00 02/25/19 20:59 01/29/19 21:21 Baclofen (Lioresal) 10 mg FOUR TIMES A DAY ORAL 01/29/19 09:00 02/25/19 08:59 01/30/19 17:14 Carvedilol (Coreg) 25 mg EVERY 12 HOURS ORAL 01/29/19 09:00 02/25/19 08:59 01/30/19 08:23 Clonidine HCl (Catapres tab) 0.2 mg Q8HR ORAL 01/29/19 06:00 02/25/19 05:59 01/30/19 06:25 Dextrose (Dextrose 50%) 25 ml Q30M PRN IV Hypoglycemia 01/29/19 01:45 02/25/19 05:14 Dextrose (Dextrose 50%) 50 ml Q30M PRN IV Hypoglycemia 01/29/19 01:45 02/25/19 05:14 Diltiazem HCl (Cardizem) 60 mg EVERY 6 HOURS ORAL 01/29/19 06:00 02/25/19 05:59 01/30/19 17:14 Docusate Sodium (Colace) 100 mg TID ORAL 01/29/19 09:00 02/25/19 08:59 01/30/19 12:42 Duloxetine HCl (Cymbalta) 60 mg DAILY ORAL 01/29/19 09:00 02/25/19 08:59 01/30/19 08:23 Finasteride (Proscar) 5 mg DAILY ORAL 01/29/19 09:00 02/25/19 08:59 01/30/19 08:23 Gabapentin (Neurontin) 600 mg EVERY 12 HOURS ORAL 01/29/19 09:00 02/25/19 08:59 01/30/19 08:22 Heparin Sodium (Porcine) (Heparin 5000 units/ml) 5,000 units EVERY 12 HOURS SUBQ 01/29/19 09:00 02/25/19 08:59 01/30/19 08:29 Hydralazine HCl (Apresoline) 75 mg Q8HR ORAL 01/29/19 06:00 02/25/19 05:59 01/30/19 15:08 Insulin Aspart (NovoLOG) BEFORE MEALS AND HS SUBQ 01/29/19 06:30 02/25/19 06:29 01/30/19 17:21 Lisinopril (Prinivil) 20 mg BID ORAL 01/29/19 09:00 02/25/19 08:59 01/30/19 17:14 Lorazepam (Ativan) 2 mg Q8H PRN ORAL Agitation 01/29/19 02:45 02/02/19 10:44 01/30/19 15:15 Minoxidil (Loniten) 2.5 mg Q4H PRN ORAL bp over 170 syst 01/29/19 02:30 02/25/19 10:28 Tamsulosin HCl (Flomax) 0.4 mg BID ORAL 01/29/19 09:00 02/25/19 08:59 01/30/19 17:14 Allergies: Coded Allergies: AMLODIPINE (Verified Allergy, Unknown, 01/25/19) ROS Limited/Unobtainable: No Constitutional: Reports: no symptoms HEENT: Reports: no symptoms Cardiovascular: Reports: no symptoms Respiratory: Reports: no symptoms Gastrointestinal/Abdominal: Reports: no symptoms Genitourinary: Reports: no symptoms Neurologic/Psychiatric: Reports: no symptoms Subjective 58 YO M admitted with head and neck pain due to fall injury. Cover for Int Med- DR Londono. Refusing meds Objective Last Vital Signs Date Time Temp Pulse Resp B/P (MAP) Pulse Ox O2 Delivery O2 Flow Rate FiO2 01/30/19 17:14 150/77 01/30/19 17:14 78 01/30/19 16:00 98.0 20 94 01/30/19 13:00 Room Air 01/30/19 09:00 2.0 Laboratory Tests Test 01/30/19 07:02 White Blood Count 5.2 K/UL (4.8-10.8) Red Blood Count 3.89 M/UL (4.70-6.10) L Hemoglobin 9.9 G/DL (14.2-18.0) L Hematocrit 31.4 % (42.0-52.0) L Mean Corpuscular Volume 81 FL (80-99) Mean Corpuscular Hemoglobin 25.4 PG (27.0-31.0) L Mean Corpuscular Hemoglobin Concent 31.4 G/DL (32.0-36.0) L Red Cell Distribution Width 15.8 % (11.6-14.8) H Platelet Count 174 K/UL (150-450) Mean Platelet Volume 7.6 FL (6.5-10.1) Neutrophils (%) (Auto) 62.0 % (45.0-75.0) Lymphocytes (%) (Auto) 24.1 % (20.0-45.0) Monocytes (%) (Auto) 7.0 % (1.0-10.0) Eosinophils (%) (Auto) 5.8 % (0.0-3.0) H Basophils (%) (Auto) 1.1 % (0.0-2.0) Sodium Level 137 MMOL/L (136-145) Potassium Level 4.4 MMOL/L (3.5-5.1) Chloride Level 103 MMOL/L (98-107) Carbon Dioxide Level 25 MMOL/L (21-32) Anion Gap 9 mmol/L (5-15) Blood Urea Nitrogen 38 mg/dL (7-18) H Creatinine 2.0 MG/DL (0.55-1.30) H Estimat Glomerular Filtration Rate 41.8 mL/min (>60) Glucose Level 158 MG/DL (74-106) H Calcium Level 8.8 MG/DL (8.5-10.1) Microbiology Date/Time Source Procedure Growth Status 01/28/19 14:30 Stool Clostridium difficile Toxin Assay - Final Complete Intake and Output 01/29/19 01/30/19 19:00 07:00 Intake Total 980 ml Output Total 850 ml Balance 130 ml Other 980 ml Output Urine Total 850 ml Objective General Appearance: WD/WN, no apparent distress, alert EENT: PERRL/EOMI, normal ENT inspection Neck: non-tender, normal alignment, supple, normal inspection Cardiovascular: normal peripheral pulses, normal rate, regular rhythm, no gallop/murmur, no JVD Respiratory/Chest: chest wall non-tender, lungs clear, normal breath sounds, no respiratory distress, no accessory muscle use Abdomen: normal bowel sounds, non tender, soft, no organomegaly, no mass Extremities: normal range of motion, non-tender 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
--- NOTE | 2019-01-30 19:11 | NUR ---
HAND-OFF: Report given to Carlos.
[2019-01-30 20:00] VITALS: BP 165/73
--- NOTE | 2019-01-30 20:50 | NUR ---
NURSES NOTES Pt alert awake oriented x4. no acute distress noted. pt on room air. lying comfortable in bed. instructed not to get out of bed without assistance. pt verbalized understanding. bed in lowest position call light in reach SL to RAC intact. will continue to monitor
[2019-01-30] MEDS: Atorvastatin 20mg tab ORAL SCH (22:17)
--- NOTE | 2019-01-30 22:30 | NUR ---
NURSE NOTES: Pt is in bed, awake ,alert and verbal. No acute distress noted. NO SOB. Vitas stable. Pt able to ambulate to the bedside commode with assistance. BS 127. Bed locked low in position,side rails up and call light within reach. Pt will be monitored. Lowell Carrillo RN will be assisting in the care of patient.
--- NOTE | 2019-01-30 23:28 | NUR ---
RESPIRATORY NOTE: Pt. refused CPAP, complained "it's too loud", RN Carlos notified
[2019-01-31] VITALS: BP 152/79
[2019-01-31] MEDS: LORazepam 1mg tab ORAL PRN ×2 (00:56→21:15)
[2019-01-31] MEDS: dilTIAZem HCl 60mg tab ORAL SCH ×4 (00:56→17:47)
[2019-01-31 04:00] VITALS: BP 163/90
[2019-01-31] MEDS: HydrALAZINE 25mg tab ORAL SCH ×3 (06:34→21:10)
[2019-01-31] MEDS: cloNIDine 0.2mg Tab ORAL SCH ×3 (06:34→21:11)
[2019-01-31] MEDS: HYDROcodone/Acetamin 10/325 tab ORAL PRN ×2 (06:34→22:36)
[2019-01-31] MEDS: NovoLOG Insulin Flexpen SUBQ SCH ×4 (06:36→21:13)
--- NOTE | 2019-01-31 07:10 | NUR ---
HAND-OFF: Report given to Lou Sloan RN. Pt is in bed, awake and alert. No acute distress noted. Informed on coming nurse that pt is fall risk.
--- NOTE | 2019-01-31 07:55 | NUR ---
NURSE NOTES: Received report from KAREN Gonzalez. Patient in bed resting, no active s/s cardiac, respiratory distress noticed at this time. Patient AOx4, patient on room air, denies pain at this time. IV on right AC 22G, asymptomatic, patent, intact. Bed in lowest position, side rails up2x, call light within reach. Walker at the bedside, reinforced to call staff before getting up. Will continue to monitor.
[2019-01-31 08:00] VITALS: BP 139/63
--- NOTE | 2019-01-31 08:42 | NUR ---
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 DIABETIC NEUROPATHY . HTN VS: BP 134/90, P 84, T 97.8, RR 20, SpO2 97 on 2.0L O2 NC IS:LIPITOR 40mg BACLOFEN 10mg COREG 25mg CYMBALTA 60mg PROSCAR 5mg GABAPENTIN 600mg HEPARIN SUBQ LISINOPRIL 20mg CLONIDINE 02.mg MED/SURG STATUS
[2019-01-31] MEDS: Docusate 100mg cap ORAL SCH ×3 (09:00→17:48)
--- NOTE | 2019-01-31 10:18 | Nephrology Progress Note ---
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 DC Subjective ROS Limited/Unobtainable: No Constitutional: Reports: malaise Objective Objective Last 24 Hour Vital Signs Date Time Temp Pulse Resp B/P (MAP) Pulse Ox O2 Delivery O2 Flow Rate FiO2 01/31/19 08:00 97.5 78 22 139/63 (88) 93 01/31/19 06:34 163/90 01/31/19 06:34 163/90 01/31/19 06:33 76 163/90 01/31/19 04:00 97.9 76 20 163/90 (114) 78 01/31/19 00:56 78 158/79 01/31/19 00:00 98.4 95 20 152/79 (103) 78 01/30/19 22:19 165/73 01/30/19 22:18 165/73 01/30/19 22:18 87 165/73 01/30/19 21:00 Room Air 01/30/19 20:00 98.9 87 17 165/73 (103) 93 01/30/19 17:14 150/77 01/30/19 17:14 78 150/77 01/30/19 16:00 98.0 78 20 150/77 (101) 94 01/30/19 15:08 147/76 01/30/19 14:00 146/76 01/30/19 13:00 Room Air 01/30/19 12:42 68 152/73 01/30/19 12:00 96.8 68 22 152/73 (99) 99 Intake and Output 01/30/19 01/31/19 18:59 06:59 Intake Total 1080 ml Output Total 1200 ml 1625 ml Balance -120 ml -1625 ml Intake Oral 1080 ml Output Urine Total 1200 ml 1625 ml # Bowel Movements 2 Height (Feet): 6 Height (Inches): 1.00 Weight (Pounds): 350 General Appearance: no apparent distress Objective no change Delroy Chin MD January 31, 2019 10:18
--- NOTE | 2019-01-31 11:00 | NUR ---
NURSE NOTES: Professor from [facility] and student nurse at the floor stated they will give medication for 0900.
[2019-01-31] MEDS: Heparin 5000 units/ml inj SUBQ SCH ×2 (11:10→21:12)
[2019-01-31] MEDS: DULoxetine 30mg cap ORAL SCH (11:14)
[2019-01-31] MEDS: Aspirin EC 81mg tab ORAL SCH (11:15)
[2019-01-31] MEDS: Lisinopril 20mg tab ORAL SCH ×2 (11:20→17:48)
[2019-01-31] MEDS: Tamsulosin 0.4mg cap ORAL SCH ×2 (11:22→17:48)
[2019-01-31] MEDS: Carvedilol 25mg Tab ORAL SCH ×2 (11:23→21:10)
[2019-01-31 12:00] VITALS: BP 136/69
--- NOTE | 2019-01-31 12:52 | Internal Med Progress Note ---
Subjective Date of Service: January 31, 2019 Physician Name Mathew Benoit Attending Physician Michael Londono MD Current Medications Medications (Trade) Dose Ordered Sig/Hong Route PRN Reason Start Time Stop Time Status Last Admin Dose Admin Acetaminophen (Tylenol) 650 mg Q4H PRN ORAL Mild Pain/Temp > 100.5 01/29/19 02:00 02/25/19 01:59 Acetaminophen/ Hydrocodone Bitart ([place] 10/325) 1 tab FOUR TIMES A DAY PRN ORAL Prn Chest Pain 01/29/19 09:00 02/02/19 04:59 01/31/19 06:34 Aspirin (Ecotrin) 81 mg DAILY ORAL 01/29/19 09:00 02/25/19 08:59 01/31/19 11:15 Atorvastatin Calcium (Lipitor) 40 mg BEDTIME ORAL 01/29/19 21:00 02/25/19 20:59 01/30/19 22:17 Baclofen (Lioresal) 10 mg FOUR TIMES A DAY ORAL 01/29/19 09:00 02/25/19 08:59 01/31/19 11:11 Carvedilol (Coreg) 25 mg EVERY 12 HOURS ORAL 01/29/19 09:00 02/25/19 08:59 01/31/19 11:23 Clonidine HCl (Catapres tab) 0.2 mg Q8HR ORAL 01/29/19 06:00 02/25/19 05:59 01/31/19 06:34 Dextrose (Dextrose 50%) 25 ml Q30M PRN IV Hypoglycemia 01/29/19 01:45 02/25/19 05:14 Dextrose (Dextrose 50%) 50 ml Q30M PRN IV Hypoglycemia 01/29/19 01:45 02/25/19 05:14 Diltiazem HCl (Cardizem) 60 mg EVERY 6 HOURS ORAL 01/29/19 06:00 02/25/19 05:59 01/31/19 06:33 Docusate Sodium (Colace) 100 mg TID ORAL 01/29/19 09:00 02/25/19 08:59 01/30/19 12:42 Duloxetine HCl (Cymbalta) 60 mg DAILY ORAL 01/29/19 09:00 02/25/19 08:59 01/31/19 11:14 Finasteride (Proscar) 5 mg DAILY ORAL 01/29/19 09:00 02/25/19 08:59 01/31/19 11:21 Gabapentin (Neurontin) 600 mg EVERY 12 HOURS ORAL 01/29/19 09:00 02/25/19 08:59 01/30/19 22:18 Heparin Sodium (Porcine) (Heparin 5000 units/ml) 5,000 units EVERY 12 HOURS SUBQ 01/29/19 09:00 02/25/19 08:59 01/31/19 11:10 Hydralazine HCl (Apresoline) 75 mg Q8HR ORAL 01/29/19 06:00 02/25/19 05:59 01/31/19 06:34 Insulin Aspart (NovoLOG) BEFORE MEALS AND HS SUBQ 01/29/19 06:30 02/25/19 06:29 01/31/19 06:36 Lisinopril (Prinivil) 20 mg BID ORAL 01/29/19 09:00 02/25/19 08:59 01/31/19 11:20 Lorazepam (Ativan) 2 mg Q8H PRN ORAL Agitation 01/29/19 02:45 02/02/19 10:44 01/31/19 00:56 Minoxidil (Loniten) 2.5 mg Q4H PRN ORAL bp over 170 syst 01/29/19 02:30 02/25/19 10:28 Tamsulosin HCl (Flomax) 0.4 mg BID ORAL 01/29/19 09:00 02/25/19 08:59 01/31/19 11:22 Allergies: Coded Allergies: AMLODIPINE (Verified Allergy, Unknown, 01/25/19) ROS Limited/Unobtainable: No Constitutional: Reports: no symptoms HEENT: Reports: no symptoms Cardiovascular: Reports: no symptoms Respiratory: Reports: no symptoms Gastrointestinal/Abdominal: Reports: no symptoms Genitourinary: Reports: no symptoms Neurologic/Psychiatric: Reports: no symptoms Subjective 58 YO M admitted with head and neck pain due to fall injury. Cover for Int Med- DR Londono. Refusing meds Objective Last Vital Signs Date Time Temp Pulse Resp B/P (MAP) Pulse Ox O2 Delivery O2 Flow Rate FiO2 01/31/19 11:23 69 136/69 01/31/19 09:00 Room Air 01/31/19 08:00 97.5 22 93 01/30/19 09:00 2.0 Microbiology Date/Time Source Procedure Growth Status 01/28/19 14:30 Stool Clostridium difficile Toxin Assay - Final Complete Intake and Output 01/30/19 01/31/19 18:59 06:59 Intake Total 1080 ml Output Total 1200 ml 1625 ml Balance -120 ml -1625 ml Intake Oral 1080 ml Output Urine Total 1200 ml 1625 ml # Bowel Movements 2 Objective General Appearance: WD/WN, no apparent distress, alert EENT: PERRL/EOMI, normal ENT inspection Neck: non-tender, normal alignment, supple, normal inspection Cardiovascular: normal peripheral pulses, normal rate, regular rhythm, no gallop/murmur, no JVD Respiratory/Chest: chest wall non-tender, lungs clear, normal breath sounds, no respiratory distress, no accessory muscle use Abdomen: normal bowel sounds, non tender, soft, no organomegaly, no mass Extremities: normal range of motion, non-tender 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
--- NOTE | 2019-01-31 13:47 | NUR ---
RD ASSESSMENT & RECOMMENDATIONS SEE CARE ACTIVITY FOR COMPLETE ASSESSMENT DAILY ESTIMATED NEEDS: Needs based on Cardiac + diabetes, obese 20-25 adj 103 kcals/kg total kcals 1-1.5 g protein/kg 103-155 g total protein 20-25ml/kcal mL/kg total fluid mLs NUTRITION DIAGNOSIS: 1) Altered nutrition related lab values R/T diabetes AEB elev A1C (8.2) and elev FBG 2) Decreased sodium and fat needs R/T cardiac history and obesity AEB pt w/ HTN, elev BP, BMI >40, @193% of [place] Body Weight. CURRENT DIET: CCHO MED/ CARDIAC PO DIET RECOMMENDATIONS: CCHO MED/ Cardiac + High prot/ 1 carb snack TID ADDITIONAL RECOMMENDATIONS: 1) Standing weight as able / or calibrated bed scale wt 2) Lytes daily, replete as needed 3) Lipid panel
--- NOTE | 2019-01-31 14:45 | NUR ---
*-* INSURANCE *-* UPDATED CLINICALS AND REVIEWS HAVE BEEN FAXED TO: [facility] P- [phone] F- [phone]....REVIEW/CLINICAL
[2019-01-31 16:00] VITALS: BP 133/63
--- NOTE | 2019-01-31 19:43 | NUR ---
HAND-OFF: Report given to KAREN Gonzalez.
[2019-01-31 20:00] VITALS: BP 134/90
--- NOTE | 2019-01-31 20:28 | NUR ---
NURSE NOTES: Pt is in bed, awake and verbal. No acute distress noted. NO SOB. Pt has a bedside commode and a urinal within reach. Pain medication and anxiety medication will be given as ordered PRN. Bed locked low in position,side rail sup and call light within reach. Pt asked to call for assistance before getting out of bed. Pt will be monitored.
[2019-01-31] MEDS: Atorvastatin 20mg tab ORAL SCH (21:10)
--- NOTE | 2019-01-31 22:30 | NUR ---
NURSE NOTES: Pt reports that his pain is not controlled by [place] 10mg four times a day, pt is requesting to call doctor to have stronger medication " something like Dilaudid IV". Dr. Cuenca and and Dr. Benoit was called. No new orders received. Dr. Benoit said he will se the patient tomorrow.
--- NOTE | 2019-01-31 22:40 | NUR ---
NURSE NOTES: [place] 10mg given for pain 10/10.
--- NOTE | 2019-01-31 23:00 | NUR ---
NURSE NOTES: Pt is asleep, No acute distress noted. RR18.
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
[2019-02-01] VITALS: BP 155/74
--- NOTE | 2019-02-01 02:00 | NUR ---
NURSE NOTES: Pt is calm now. Pt was assisted to commode. Bed linen changed, Pt was cleaned. Sacral wound dressing changed, triad cream applied. Pt is behaving mush better now.
[2019-02-01] MEDS: HYDROcodone/Acetamin 10/325 tab ORAL PRN ×4 (02:19→20:35)
[2019-02-01] MEDS: dilTIAZem HCl 60mg tab ORAL SCH ×4 (02:19→17:39)
[2019-02-01 04:00] VITALS: BP 155/77
[2019-02-01] MEDS: HydrALAZINE 25mg tab ORAL SCH ×3 (05:37→23:11)
[2019-02-01] MEDS: cloNIDine 0.2mg Tab ORAL SCH ×3 (05:37→23:11)
[2019-02-01] MEDS: LORazepam 1mg tab ORAL PRN ×3 (05:37→23:17)
[2019-02-01] MEDS: NovoLOG Insulin Flexpen SUBQ SCH ×4 (05:41→21:00)
--- NOTE | 2019-02-01 07:03 | NUR ---
NURSE NOTES: Pictures taken of some old bodily scabs that patient sustained after fall at [facility]. Pt wanted to have pictures taken for record. A forehead scab, left knee scab, and left 2nd toe nail damage. Pt requested to have those pictures taken.
--- NOTE | 2019-02-01 07:17 | NUR ---
HAND-OFF: Report given to KAREN Jansen.Informed Inderjit that patient is a Fall risk. Pt is in room awake and alert.
[2019-02-01 08:00] VITALS: BP 148/79
--- NOTE | 2019-02-01 08:09 | NUR ---
NURSE NOTES: Received patient from Carlos RN, patient is up in bed resting, no distress noted, bed is locked and lowest position, call light within reach, will continue to monitor.
[2019-02-01] MEDS: Docusate 100mg cap ORAL SCH ×3 (08:55→17:38)
--- NOTE | 2019-02-01 08:59 | NUR ---
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 DIABETIC NEUROPATHY . HTN VS: BP 155/77, P 76, T 97.3, RR 18, SpO2 95 IS:ATIVAN 2mg APRESOILINE 75mg CARDIZEM 60mg CATAPRES 0.2mg NOVOLOG SUBQ NORCO 1tab MED/SURG STATUS
[2019-02-01] MEDS: Aspirin EC 81mg tab ORAL SCH (09:07)
[2019-02-01] MEDS: Lisinopril 20mg tab ORAL SCH ×2 (09:07→17:40)
[2019-02-01] MEDS: Tamsulosin 0.4mg cap ORAL SCH ×2 (09:08→17:39)
[2019-02-01] MEDS: DULoxetine 30mg cap ORAL SCH (09:08)
[2019-02-01] MEDS: Carvedilol 25mg Tab ORAL SCH ×2 (09:08→20:55)
[2019-02-01] MEDS: Heparin 5000 units/ml inj SUBQ SCH ×2 (09:09→20:59)
[2019-02-01 09:34] LABS: EOSINOPHILS % (AUTO) 5.9 % (0.0-3.0); HEMOGLOBIN 10.1 G/DL (14.2-18.0); LYMPHOCYTES % (AUTO) 24.6 % (20.0-45.0); MEAN CORPUSCULAR VOLUME 81 FL (80-99); MONOCYTES % (AUTO) 9.1 % (1.0-10.0); NEUTROPHILS % (AUTO) 59.5 % (45.0-75.0); PLATELET COUNT 170 K/UL (150-450); RED BLOOD COUNT 3.96 M/UL (4.70-6.10); RED CELL DISTRIBUTION WIDTH 15.8 % (11.6-14.8); WHITE BLOOD COUNT 5.4 K/UL (4.8-10.8)
[2019-02-01 09:45] LABS: ANION GAP 9 mmol/L (5-15); BLOOD UREA NITROGEN 39 mg/dL (7-18); CALCIUM 8.5 MG/DL (8.5-10.1); CARBON DIOXIDE 25 MMOL/L (21-32); CHLORIDE 104 MMOL/L (98-107); CREATININE 2.2 MG/DL (0.55-1.30); POTASSIUM 4.2 MMOL/L (3.5-5.1); SODIUM 138 MMOL/L (136-145)
[2019-02-01 09:49] LABS: ALANINE AMINOTRANSFERASE 28 U/L (12-78); ALBUMIN 2.7 G/DL (3.4-5.0); ALBUMIN/GLOBULIN RATIO 0.6 (1.0-2.7); ALKALINE PHOSPHATASE 82 U/L (46-116); ASPARTATE AMINO TRANSFERASE 24 U/L (15-37); BILIRUBIN,TOTAL 0.2 MG/DL (0.2-1.0); PHOSPHORUS 3.8 MG/DL (2.5-4.9)
--- NOTE | 2019-02-01 11:27 | Nephrology Progress Note ---
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 DC Subjective ROS Limited/Unobtainable: No Constitutional: Reports: other - anxious to be discharged Objective Objective Last 24 Hour Vital Signs Date Time Temp Pulse Resp B/P (MAP) Pulse Ox O2 Delivery O2 Flow Rate FiO2 02/01/19 09:08 83 148/79 02/01/19 09:07 148/79 02/01/19 08:15 Room Air Room Air 02/01/19 08:00 98.8 83 18 148/79 (102) 97 02/01/19 05:37 155/77 02/01/19 05:37 76 155/77 02/01/19 05:37 155/77 02/01/19 04:00 98.9 76 18 155/77 (103) 95 02/01/19 02:19 66 155/74 02/01/19 00:00 97.3 66 18 155/74 (101) 98 01/31/19 21:11 137/68 01/31/19 21:10 137/68 01/31/19 21:10 84 137/86 01/31/19 21:00 Room Air Room Air 01/31/19 20:00 97.8 77 18 134/90 (105) 95 01/31/19 19:52 75 20 Room Air 21 01/31/19 17:48 133/63 01/31/19 17:47 69 133/63 01/31/19 16:00 98.1 69 19 133/63 (86) 98 01/31/19 13:59 Nasal Cannula 2.0 01/31/19 13:39 140/65 01/31/19 13:38 140/65 01/31/19 13:38 68 140/65 01/31/19 12:00 96.4 71 22 136/69 (91) 97 Intake and Output 01/31/19 02/01/19 19:00 07:00 Intake Total 300 ml Output Total 800 ml 100 ml Balance -500 ml -100 ml Intake Oral 300 ml Output Urine Total 800 ml 100 ml # Voids 2 # Bowel Movements 1 1 Laboratory Tests 02/01/19 09:13: White Blood Count 5.4, Red Blood Count 3.96L, Hemoglobin 10.1L, Hematocrit 32.0L , Mean Corpuscular Volume 81, Mean Corpuscular Hemoglobin 25.4L, Mean Corpuscular Hemoglobin Concent 31.5L, Red Cell Distribution Width 15.8H, Platelet Count 170, Mean Platelet Volume 7.6, Neutrophils (%) (Auto) 59.5, Lymphocytes (%) (Auto) 24.6, Monocytes (%) (Auto) 9.1, Eosinophils (%) (Auto) 5.9H, Basophils (%) (Auto) 1.0, Sodium Level 138, Potassium Level 4.2, Chloride Level 104, Carbon Dioxide Level 25, Anion Gap 9, Blood Urea Nitrogen 39H, Creatinine 2.2H, Estimat Glomerular Filtration Rate 37.5, Glucose Level 130H, Uric Acid 7.5H, Calcium Level 8.5, Phosphorus Level 3.8, Magnesium Level 1.9, Total Bilirubin 0.2, Aspartate Amino Transf (AST/SGOT) 24, Alanine Aminotransferase (ALT/SGPT) 28, Alkaline Phosphatase 82, Total Protein 7.4, Albumin 2.7L, Globulin 4.7, Albumin/Globulin Ratio 0.6L Height (Feet): 6 Height (Inches): 1.00 Weight (Pounds): 350 Cardiovascular: normal rate Respiratory/Chest: decreased breath sounds Abdomen: distended Neurologic: alert Objective no change Delroy Chin MD February 01, 2019 11:27
[2019-02-01 12:00] VITALS: BP 142/77
--- NOTE | 2019-02-01 14:47 | NUR ---
*-* INSURANCE *-* UPDATED CLINICALS AND REVIEWS HAVE BEEN FAXED TO: [facility] P- [phone] F- [phone]....REVIEW/CLINICAL
[2019-02-01 16:00] VITALS: BP 140/80
--- NOTE | 2019-02-01 16:12 | NUR ---
EMBROIDERER NOTES SPOKE WITH CELINE CURRY FROM [facility], PT DOES NOT MEET THE CRITERIA FOR SNF PLACEMENT. SUPERVISOR CELL MAINTENANCE MADE AWARE. WILL FOLLOW UP WHEN ALTERNATE PLACEMENT IS FOUND.
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
--- NOTE | 2019-02-01 18:12 | Internal Med Progress Note ---
Subjective Date of Service: February 01, 2019 Physician Name Mathew Benoit Attending Physician Michael Londono MD Current Medications Medications (Trade) Dose Ordered Sig/Hong Route PRN Reason Start Time Stop Time Status Last Admin Dose Admin Acetaminophen (Tylenol) 650 mg Q4H PRN ORAL Mild Pain/Temp > 100.5 01/29/19 02:00 02/25/19 01:59 Acetaminophen/ Hydrocodone Bitart ([place] 10/325) 1 tab FOUR TIMES A DAY PRN ORAL Prn Chest Pain 01/29/19 09:00 02/02/19 04:59 02/01/19 12:37 Aspirin (Ecotrin) 81 mg DAILY ORAL 01/29/19 09:00 02/25/19 08:59 02/01/19 09:07 Atorvastatin Calcium (Lipitor) 40 mg BEDTIME ORAL 01/29/19 21:00 02/25/19 20:59 01/31/19 21:10 Baclofen (Lioresal) 10 mg FOUR TIMES A DAY ORAL 01/29/19 09:00 02/25/19 08:59 02/01/19 17:41 Carvedilol (Coreg) 25 mg EVERY 12 HOURS ORAL 01/29/19 09:00 02/25/19 08:59 02/01/19 09:08 Clonidine HCl (Catapres tab) 0.2 mg Q8HR ORAL 01/29/19 06:00 02/25/19 05:59 02/01/19 14:36 Dextrose (Dextrose 50%) 25 ml Q30M PRN IV Hypoglycemia 01/29/19 01:45 02/25/19 05:14 Dextrose (Dextrose 50%) 50 ml Q30M PRN IV Hypoglycemia 01/29/19 01:45 02/25/19 05:14 Diltiazem HCl (Cardizem) 60 mg EVERY 6 HOURS ORAL 01/29/19 06:00 02/25/19 05:59 02/01/19 17:39 Docusate Sodium (Colace) 100 mg TID ORAL 01/29/19 09:00 02/25/19 08:59 01/30/19 12:42 Duloxetine HCl (Cymbalta) 60 mg DAILY ORAL 01/29/19 09:00 02/25/19 08:59 02/01/19 09:08 Finasteride (Proscar) 5 mg DAILY ORAL 01/29/19 09:00 02/25/19 08:59 02/01/19 09:08 Gabapentin (Neurontin) 600 mg EVERY 12 HOURS ORAL 01/29/19 09:00 02/25/19 08:59 02/01/19 09:07 Heparin Sodium (Porcine) (Heparin 5000 units/ml) 5,000 units EVERY 12 HOURS SUBQ 01/29/19 09:00 02/25/19 08:59 02/01/19 09:09 Hydralazine HCl (Apresoline) 75 mg Q8HR ORAL 01/29/19 06:00 02/25/19 05:59 02/01/19 14:36 Insulin Aspart (NovoLOG) BEFORE MEALS AND HS SUBQ 01/29/19 06:30 02/25/19 06:29 02/01/19 17:04 Lisinopril (Prinivil) 20 mg BID ORAL 01/29/19 09:00 02/25/19 08:59 02/01/19 17:40 Lorazepam (Ativan) 2 mg Q8H PRN ORAL Agitation 01/29/19 02:45 02/02/19 10:44 02/01/19 14:37 Minoxidil (Loniten) 2.5 mg Q4H PRN ORAL bp over 170 syst 01/29/19 02:30 02/25/19 10:28 Tamsulosin HCl (Flomax) 0.4 mg BID ORAL 01/29/19 09:00 02/25/19 08:59 02/01/19 17:39 Allergies: Coded Allergies: AMLODIPINE (Verified Allergy, Unknown, 01/25/19) ROS Limited/Unobtainable: No Constitutional: Reports: no symptoms HEENT: Reports: no symptoms Cardiovascular: Reports: no symptoms Respiratory: Reports: no symptoms Gastrointestinal/Abdominal: Reports: no symptoms Genitourinary: Reports: no symptoms Neurologic/Psychiatric: Reports: no symptoms Subjective 58 YO M admitted with head and neck pain due to fall injury. Cover for Int Med- DR Londono. Refusing meds Objective Last Vital Signs Date Time Temp Pulse Resp B/P (MAP) Pulse Ox O2 Delivery O2 Flow Rate FiO2 02/01/19 17:40 140/80 02/01/19 17:39 84 02/01/19 16:00 98.8 19 98 02/01/19 08:15 Room Air Room Air 01/31/19 19:52 21 01/31/19 13:59 2.0 Laboratory Tests Test 02/01/19 09:13 White Blood Count 5.4 K/UL (4.8-10.8) Red Blood Count 3.96 M/UL (4.70-6.10) L Hemoglobin 10.1 G/DL (14.2-18.0) L Hematocrit 32.0 % (42.0-52.0) L Mean Corpuscular Volume 81 FL (80-99) Mean Corpuscular Hemoglobin 25.4 PG (27.0-31.0) L Mean Corpuscular Hemoglobin Concent 31.5 G/DL (32.0-36.0) L Red Cell Distribution Width 15.8 % (11.6-14.8) H Platelet Count 170 K/UL (150-450) Mean Platelet Volume 7.6 FL (6.5-10.1) Neutrophils (%) (Auto) 59.5 % (45.0-75.0) Lymphocytes (%) (Auto) 24.6 % (20.0-45.0) Monocytes (%) (Auto) 9.1 % (1.0-10.0) Eosinophils (%) (Auto) 5.9 % (0.0-3.0) H Basophils (%) (Auto) 1.0 % (0.0-2.0) Sodium Level 138 MMOL/L (136-145) Potassium Level 4.2 MMOL/L (3.5-5.1) Chloride Level 104 MMOL/L (98-107) Carbon Dioxide Level 25 MMOL/L (21-32) Anion Gap 9 mmol/L (5-15) Blood Urea Nitrogen 39 mg/dL (7-18) H Creatinine 2.2 MG/DL (0.55-1.30) H Estimat Glomerular Filtration Rate 37.5 mL/min (>60) Glucose Level 130 MG/DL (74-106) H Uric Acid 7.5 MG/DL (2.6-7.2) H Calcium Level 8.5 MG/DL (8.5-10.1) Phosphorus Level 3.8 MG/DL (2.5-4.9) Magnesium Level 1.9 MG/DL (1.8-2.4) Total Bilirubin 0.2 MG/DL (0.2-1.0) Aspartate Amino Transf (AST/SGOT) 24 U/L (15-37) Alanine Aminotransferase (ALT/SGPT) 28 U/L (12-78) Alkaline Phosphatase 82 U/L (46-116) Total Protein 7.4 G/DL (6.4-8.2) Albumin 2.7 G/DL (3.4-5.0) L Globulin 4.7 g/dL Albumin/Globulin Ratio 0.6 (1.0-2.7) L Intake and Output 01/31/19 02/01/19 18:59 06:59 Intake Total 300 ml Output Total 800 ml 100 ml Balance -500 ml -100 ml Intake Oral 300 ml Output Urine Total 800 ml 100 ml # Voids 2 # Bowel Movements 1 1 Objective General Appearance: WD/WN, no apparent distress, alert EENT: PERRL/EOMI, normal ENT inspection Neck: non-tender, normal alignment, supple, normal inspection Cardiovascular: normal peripheral pulses, normal rate, regular rhythm, no gallop/murmur, no JVD Respiratory/Chest: chest wall non-tender, lungs clear, normal breath sounds, no respiratory distress, no accessory muscle use Abdomen: normal bowel sounds, non tender, soft, no organomegaly, no mass Extremities: normal range of motion, non-tender Neurologic: manager mutual fund II-XII grossly normal, no motor/sensory deficits Skin: normal pigmentation, warm/dry Assessment/Plan Problem List: (1) Diabetes mellitus type II, controlled Assessment & Plan: continue novolog sliding scale (2) Diabetic neuropathy (3) Headache Assessment & Plan: CT brain normal (4) Neck pain Assessment & Plan: CT spine normal (5) HTN (hypertension) Assessment & Plan: continue lisinopril (6) Acute encephalopathy (7) Severe anemia Assessment & Plan: S/P transfusion 1 unit PRBC 01/27/19 Assessment/Plan Discharge planning: [facility] Mathew Benoit MD February 01, 2019 18:12
--- NOTE | 2019-02-01 19:30 | NUR ---
NURSE NOTES: RECEIVED PATIENT LYING IN BED, AWAKE, ALERT/ORIENTED X4, NOTED WITH PERIODS OF CONFUSION/FORGETFULNESS, NO SIGNS AND SYMPTOMS OF ACUTE CARDIO RESPIRATORY DISTRESS/SHORTNESS OF BREATH, DENIES CHEST PAIN. ABDOMEN OBESE, BOWEL SOUNDS AUDIBLE, NO REPORT OF N/V/D, BEDSIDE COMMODE/URINAL AVAILABLE FOR PATIENT USAGE. IV INTACT TO RIGHT AC, NO REDNESS/SWELLING NOTED TO SITE. SIDE RAILS UP X2 FOR MOBILITY, BED IN LOWEST POSITION FOR SAFETY. CALL LIGHT WITHIN REACH. NAD.
--- NOTE | 2019-02-01 19:38 | NUR ---
HAND-OFF: Report given to Consuelo MONZON.
[2019-02-01 20:00] VITALS: BP 156/78
[2019-02-01] MEDS: Atorvastatin 20mg tab ORAL SCH (20:55)
--- NOTE | 2019-02-01 23:30 | NUR ---
NURSE NOTES: MEDICATED PATIENT WITH ATIVAN AT 2317 FOR AGITATION, ACTIVATED BED ALARM SECONDARY TO PATIENT SEDATIVE STATE, PATIENT BECAME ANGRY SHORTLY AFTER, STATING THAT HE IS NOT COGNITIVE IMPAIRED AND TO HAVE THE ALARM SOUND OFF WAS EMBARRASSING; EXPLAINED TO PATIENT THAT THE ALARM WAS ACTIVATED FOR HIS PROTECTION/PREVENTION OF FALLS BECAUSE OF THE SEDATIVE EFFECT OF THE MEDICATION.
[2019-02-02] VITALS: BP 147/76
[2019-02-02] MEDS: dilTIAZem HCl 60mg tab ORAL SCH ×5 (00:29→17:35)
[2019-02-02] MEDS: HYDROcodone/Acetamin 10/325 tab ORAL PRN (02:31)
[2019-02-02 04:00] VITALS: BP 133/67
--- NOTE | 2019-02-02 06:36 | NUR ---
NURSE NOTES: MONITORED GLUCOSE LEVEL VIA GLUCOMETER WITH RESULT 140MG/DL, ASYMPTOMATIC, ADM. 3 UNITS NOVOLOG INSULIN, TOLERATED WELL, NO ADVERSE REACTION NOTED AFTER 15 MINUTES.
[2019-02-02] MEDS: cloNIDine 0.2mg Tab ORAL SCH ×3 (06:45→22:20)
[2019-02-02] MEDS: HydrALAZINE 25mg tab ORAL SCH ×3 (06:46→21:15)
[2019-02-02] MEDS: NovoLOG Insulin Flexpen SUBQ SCH ×5 (06:51→21:14)
[2019-02-02 07:28] LABS: BASOPHILS % (AUTO) 1.6 % (0.0-2.0); EOSINOPHILS % (AUTO) 5.8 % (0.0-3.0); HEMOGLOBIN 10.7 G/DL (14.2-18.0); LYMPHOCYTES % (AUTO) 31.8 % (20.0-45.0); MEAN CORPUSCULAR VOLUME 82 FL (80-99); MONOCYTES % (AUTO) 7.5 % (1.0-10.0); NEUTROPHILS % (AUTO) 53.3 % (45.0-75.0); PLATELET COUNT 112 K/UL (150-450); RED BLOOD COUNT 4.28 M/UL (4.70-6.10); RED CELL DISTRIBUTION WIDTH 16.1 % (11.6-14.8); WHITE BLOOD COUNT 5.4 K/UL (4.8-10.8)
[2019-02-02 07:29] LABS: ANION GAP 8 mmol/L (5-15); BLOOD UREA NITROGEN 42 mg/dL (7-18); CALCIUM 8.5 MG/DL (8.5-10.1); CARBON DIOXIDE 25 MMOL/L (21-32); CHLORIDE 103 MMOL/L (98-107); CREATININE 2.3 MG/DL (0.55-1.30); POTASSIUM 4.6 MMOL/L (3.5-5.1); SODIUM 136 MMOL/L (136-145)
--- NOTE | 2019-02-02 07:34 | NUR ---
HAND-OFF: Report given to KAREN MCMILLAN.
--- NOTE | 2019-02-02 07:50 | NUR ---
NURSE NOTES: Received patient on bed, awake. IV site intact and patent. Bed in low and locked position, call light in reach. No signs of respiratory distress or pain. Room board updated, will continue to monitor.
[2019-02-02 08:00] VITALS: BP 127/62
[2019-02-02] MEDS: Docusate 100mg cap ORAL SCH ×3 (09:00→17:29)
[2019-02-02] MEDS: Heparin 5000 units/ml inj SUBQ SCH ×2 (09:00→20:06)
[2019-02-02] MEDS: LORazepam 1mg tab ORAL PRN (09:04)
[2019-02-02] MEDS: Carvedilol 25mg Tab ORAL SCH ×2 (09:06→20:05)
[2019-02-02] MEDS: DULoxetine 30mg cap ORAL SCH (09:06)
[2019-02-02] MEDS: Tamsulosin 0.4mg cap ORAL SCH ×3 (09:06→17:35)
[2019-02-02] MEDS: Lisinopril 20mg tab ORAL SCH ×3 (09:06→17:35)
[2019-02-02] MEDS: Aspirin EC 81mg tab ORAL SCH (09:06)
--- NOTE | 2019-02-02 10:27 | NUR ---
NURSE NOTES: Platelets count is 112 when the previous day it was 170. No signs of brian bleeding, patient denies any bloddy stools. heparin held until clarification from MD Londono. MD Londono was left message with his answering service. Charge nurse made aware.
[2019-02-02 12:03] VITALS: BP 145/61
--- NOTE | 2019-02-02 13:13 | NUR ---
*-* INSURANCE *-* UPDATED CLINICALS AND REVIEWS HAVE BEEN FAXED TO: [facility] P- [phone] F- [phone]....REVIEW/CLINICAL
--- NOTE | 2019-02-02 14:32 | NUR ---
Social Service Note SW met with patient to address alternative placement in the event [facility] will not accept patient. Patient's desire is to return to facility. GRETA contacted placement coordinators Macy [phone] (p) [phone] (f) and Esther [phone] (p). GRETA contacted [facility] [phone]. GRETA emailed Arvind Yousif at [facility]. Follow call placed to [facility] [phone], referred received and is being reviewed. Patient will be placed on wait list. SW will continue to follow up and explore other options.
--- NOTE | 2019-02-02 14:58 | Internal Med Progress Note ---
Subjective Physician Name Michael Londono Attending Physician Michael Londono MD Current Medications Medications (Trade) Dose Ordered Sig/Hong Route PRN Reason Start Time Stop Time Status Last Admin Dose Admin Acetaminophen (Tylenol) 650 mg Q4H PRN ORAL Mild Pain/Temp > 100.5 01/29/19 02:00 02/25/19 01:59 02/02/19 09:04 Aspirin (Ecotrin) 81 mg DAILY ORAL 01/29/19 09:00 02/25/19 08:59 02/02/19 09:06 Atorvastatin Calcium (Lipitor) 40 mg BEDTIME ORAL 01/29/19 21:00 02/25/19 20:59 02/01/19 20:55 Baclofen (Lioresal) 10 mg FOUR TIMES A DAY ORAL 01/29/19 09:00 02/25/19 08:59 02/02/19 12:14 Carvedilol (Coreg) 25 mg EVERY 12 HOURS ORAL 01/29/19 09:00 02/25/19 08:59 02/02/19 09:06 Clonidine HCl (Catapres tab) 0.2 mg Q8HR ORAL 01/29/19 06:00 02/25/19 05:59 02/02/19 06:45 Dextrose (Dextrose 50%) 25 ml Q30M PRN IV Hypoglycemia 01/29/19 01:45 02/25/19 05:14 Dextrose (Dextrose 50%) 50 ml Q30M PRN IV Hypoglycemia 01/29/19 01:45 02/25/19 05:14 Diltiazem HCl (Cardizem) 60 mg EVERY 6 HOURS ORAL 01/29/19 06:00 02/25/19 05:59 02/02/19 12:15 Docusate Sodium (Colace) 100 mg TID ORAL 01/29/19 09:00 02/25/19 08:59 01/30/19 12:42 Duloxetine HCl (Cymbalta) 60 mg DAILY ORAL 01/29/19 09:00 02/25/19 08:59 02/02/19 09:06 Finasteride (Proscar) 5 mg DAILY ORAL 01/29/19 09:00 02/25/19 08:59 02/02/19 09:06 Gabapentin (Neurontin) 600 mg EVERY 12 HOURS ORAL 01/29/19 09:00 02/25/19 08:59 02/02/19 09:06 Heparin Sodium (Porcine) (Heparin 5000 units/ml) 5,000 units EVERY 12 HOURS SUBQ 01/29/19 09:00 02/25/19 08:59 02/01/19 20:59 Hydralazine HCl (Apresoline) 75 mg Q8HR ORAL 01/29/19 06:00 02/25/19 05:59 02/02/19 06:46 Insulin Aspart (NovoLOG) BEFORE MEALS AND HS SUBQ 01/29/19 06:30 02/25/19 06:29 02/02/19 12:17 Lisinopril (Prinivil) 20 mg BID ORAL 01/29/19 09:00 02/25/19 08:59 02/02/19 09:06 Minoxidil (Loniten) 2.5 mg Q4H PRN ORAL bp over 170 syst 01/29/19 02:30 02/25/19 10:28 Tamsulosin HCl (Flomax) 0.4 mg BID ORAL 01/29/19 09:00 02/25/19 08:59 02/02/19 09:06 Allergies: Coded Allergies: AMLODIPINE (Verified Allergy, Unknown, 01/25/19) Subjective Awake, alert, responsive, complaining about difficulty ambulating. Objective Last Vital Signs Date Time Temp Pulse Resp B/P (MAP) Pulse Ox O2 Delivery O2 Flow Rate FiO2 02/02/19 12:15 72 145/61 02/02/19 12:03 98.6 20 98 02/02/19 09:00 Room Air Room Air 01/31/19 19:52 21 01/31/19 13:59 2.0 Laboratory Tests Test 02/02/19 06:23 White Blood Count 5.4 K/UL (4.8-10.8) Red Blood Count 4.28 M/UL (4.70-6.10) L Hemoglobin 10.7 G/DL (14.2-18.0) L Hematocrit 35.0 % (42.0-52.0) L Mean Corpuscular Volume 82 FL (80-99) Mean Corpuscular Hemoglobin 24.9 PG (27.0-31.0) L Mean Corpuscular Hemoglobin Concent 30.5 G/DL (32.0-36.0) L Red Cell Distribution Width 16.1 % (11.6-14.8) H Platelet Count 112 K/UL (150-450) L Mean Platelet Volume 8.8 FL (6.5-10.1) Neutrophils (%) (Auto) 53.3 % (45.0-75.0) Lymphocytes (%) (Auto) 31.8 % (20.0-45.0) Monocytes (%) (Auto) 7.5 % (1.0-10.0) Eosinophils (%) (Auto) 5.8 % (0.0-3.0) H Basophils (%) (Auto) 1.6 % (0.0-2.0) Sodium Level 136 MMOL/L (136-145) Potassium Level 4.6 MMOL/L (3.5-5.1) Chloride Level 103 MMOL/L (98-107) Carbon Dioxide Level 25 MMOL/L (21-32) Anion Gap 8 mmol/L (5-15) Blood Urea Nitrogen 42 mg/dL (7-18) H Creatinine 2.3 MG/DL (0.55-1.30) H Estimat Glomerular Filtration Rate 35.6 mL/min (>60) Glucose Level 128 MG/DL (74-106) H Calcium Level 8.5 MG/DL (8.5-10.1) Intake and Output 02/01/19 02/02/19 19:00 07:00 Intake Total 2400 ml 1020 ml Output Total 1400 ml Balance 2400 ml -380 ml Intake Oral 2400 ml 1020 ml Output Urine Total 1400 ml # Voids 6 # Bowel Movements 1 Objective General: No acute distress, awake and alert HEENT: NCAT, sclera anicteric, PERRL, EOMI. Neck: Supple, no significant jugular venous distention, Lungs: Good inspiratory effort, clear to auscultation bilaterally, no Wheeze or Rales. Heart: Regular rate and rhythm, normal S1/S2, no murmurs Abdomen: soft, nontender, nondistended. Normoactive bowel sounds, Morbid obesity. / Rectal: Refused and deferred. Extremities: No Cyanosis , clubbing + 1 LE's edema. Neuro: A&O x 3, Able to move all extremities Assessment/Plan Assessment/Plan (1) Diabetes mellitus type II, controlled Assessment & Plan: continue novolog sliding scale (2) Diabetic neuropathy (3) Headache Assessment & Plan: CT brain normal (4) Neck pain Assessment & Plan: CT spine normal (5) HTN (hypertension) Assessment & Plan: continue lisinopril (6) Acute encephalopathy (7) Severe anemia (8) acute renal insufficiency on chronic kidney disease. Assessment & Plan: S/P transfusion 1 unit PRBC 01/27/19 Assessment/Plan Discharge planning: [facility] Michael Londono MD February 02, 2019 14:58
--- NOTE | 2019-02-02 15:43 | NUR ---
MANAGER WILLOW NOTES SPOKE WITH KORINA FROM [facility], PT ACCEPTED BACK ON TUESDAY TO ROOM 203 BED B. PT TO BE TRANSPORTED BY [facility] WITH [facility] TIME 0900. NURSE TO CALL REPORT TO [facility]. [facility] [phone]
[2019-02-02 16:00] VITALS: BP 135/92
--- NOTE | 2019-02-02 17:06 | NUR ---
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 DIABETIC NEUROPATHY . HTN VS: BP 145/61, P 83, T 98.6, RR 20, SpO2 97 RBC 4.28, H&H 10.7/35.0, BUN 42, CR 2.3 IS: COREG 25mg CYBALTA 60mg PROSCAR 5mg GABAPENTIN 600mg HEPARIN SUBQ APRESOLINE 75mg CLONIDINE0.2mg CARDIZEM 60mg CATAPRES 0.2mg NOVOLOG SUBQ NORCO 10/325 1tab MED/SURG STATUS
--- NOTE | 2019-02-02 17:33 | Nephrology Progress Note ---
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 DC Subjective ROS Limited/Unobtainable: No Objective Objective Last 24 Hour Vital Signs Date Time Temp Pulse Resp B/P (MAP) Pulse Ox O2 Delivery O2 Flow Rate FiO2 02/02/19 17:29 135/92 02/02/19 17:28 83 135/92 02/02/19 16:00 98.0 83 20 135/92 (106) 97 02/02/19 15:04 145/61 02/02/19 15:04 145/61 02/02/19 12:15 72 145/61 02/02/19 12:03 98.6 72 20 145/61 (89) 98 02/02/19 09:06 127/62 02/02/19 09:06 75 127/62 02/02/19 09:00 Room Air Room Air 02/02/19 08:00 98.1 75 20 127/62 (83) 97 02/02/19 06:46 145/88 02/02/19 06:46 75 145/88 02/02/19 06:45 145/88 02/02/19 04:00 97.9 68 20 133/67 (89) 97 02/02/19 03:01 97.9 02/02/19 00:29 81 147/76 02/02/19 00:00 98.7 81 20 147/76 (99) 96 02/01/19 23:11 168/78 02/01/19 23:11 168/78 02/01/19 21:00 Room Air Room Air 02/01/19 20:55 76 154/89 02/01/19 20:00 98.3 80 20 156/78 (104) 95 02/01/19 17:40 140/80 02/01/19 17:39 84 140/80 Intake and Output 02/01/19 02/02/19 18:59 06:59 Intake Total 2400 ml 1020 ml Output Total 1400 ml Balance 2400 ml -380 ml Intake Oral 2400 ml 1020 ml Output Urine Total 1400 ml # Voids 6 # Bowel Movements 1 Laboratory Tests 02/02/19 06:23: White Blood Count 5.4, Red Blood Count 4.28L, Hemoglobin 10.7L, Hematocrit 35.0L , Mean Corpuscular Volume 82, Mean Corpuscular Hemoglobin 24.9L, Mean Corpuscular Hemoglobin Concent 30.5L, Red Cell Distribution Width 16.1H, Platelet Count 112L, Mean Platelet Volume 8.8, Neutrophils (%) (Auto) 53.3, Lymphocytes (%) (Auto) 31.8, Monocytes (%) (Auto) 7.5, Eosinophils (%) (Auto) 5.8H, Basophils (%) (Auto) 1.6, Sodium Level 136, Potassium Level 4.6, Chloride Level 103, Carbon Dioxide Level 25, Anion Gap 8, Blood Urea Nitrogen 42H, Creatinine 2.3H, Estimat Glomerular Filtration Rate 35.6, Glucose Level 128H, Calcium Level 8.5 Height (Feet): 6 Height (Inches): 1.00 Weight (Pounds): 350 Cardiovascular: normal rate Respiratory/Chest: lungs clear Abdomen: soft Objective no change Delroy Chin MD February 02, 2019 17:33
--- NOTE | 2019-02-02 18:05 | NUR ---
NURSE NOTES: Patient refused all scheduled 1800 medications as well as novolog sliding scale. Risks versus benefits explained.
--- NOTE | 2019-02-02 19:22 | NUR ---
HAND-OFF: Report given to NA Grover.
--- NOTE | 2019-02-02 19:30 | NUR ---
NURSE NOTES: RECEIVED PATIENT SITTING AT BEDSIDE, ORIENTED X4, IRRITABLE; COMPLAINTS OF CHRONIC PAIN TO POSTERIOR NECK, 04/11; NO SIGNS AND SYMPTOMS OF ACUTE CARDIO RESPIRATORY DISTRESS/SHORTNESS OF BREATH, DENIES CHEST PAIN. NO REPORT OF GI DISTRESS, NO N/V/D. CONTINENT OF B/B, BEDSIDE COMMODE/URINAL WITHIN REACH. ENCOURAGED PATIENT TO UTILIZE CALL LIGHT FOR ASSISTANCE, VERBALIZED UNDERSTANDING. IV REMAIN INTACT, NO REDNESS/SWELLING NOTED TO SITE. DISCHARGE PLANNING ONGOING.
[2019-02-02 20:00] VITALS: BP 153/76
[2019-02-02] MEDS: Atorvastatin 20mg tab ORAL SCH (20:05)
[2019-02-02] MEDS: HYDROcodone/Acetamin 5/325 tab ORAL PRN (21:16)
[2019-02-03] VITALS: BP 134/65
[2019-02-03] MEDS: dilTIAZem HCl 60mg tab ORAL SCH ×4 (00:08→19:11)
[2019-02-03] MEDS: LORazepam 1mg tab ORAL PRN ×3 (00:09→21:48)
[2019-02-03 04:00] VITALS: BP 155/86
[2019-02-03] MEDS: HYDROcodone/Acetamin 5/325 tab ORAL PRN ×4 (05:35→19:18)
[2019-02-03] MEDS: HydrALAZINE 25mg tab ORAL SCH ×3 (06:40→22:47)
[2019-02-03] MEDS: cloNIDine 0.2mg Tab ORAL SCH ×3 (06:40→22:46)
[2019-02-03] MEDS: NovoLOG Insulin Flexpen SUBQ SCH ×4 (06:45→21:06)
--- NOTE | 2019-02-03 06:52 | NUR ---
NURSE NOTES: MONITORED BLOOD GLUCOSE LEVEL VIA GLUCOMETER WITH RESULT 153MG/DL, ASYMPTOMATIC, ADM. 4 UNITS NOVOLOG INSULIN SLIDING SCALE, TOLERATED WELL. NAD.
--- NOTE | 2019-02-03 08:00 | NUR ---
NURSE NOTES: Patient is alert and oriented patient sitting up and eating breakfast,no complaints at this time,call light within reach.
[2019-02-03] MEDS: Carvedilol 25mg Tab ORAL SCH ×2 (08:28→20:37)
[2019-02-03] MEDS: Tamsulosin 0.4mg cap ORAL SCH ×2 (08:29→19:10)
[2019-02-03] MEDS: Aspirin EC 81mg tab ORAL SCH (08:29)
[2019-02-03] MEDS: DULoxetine 30mg cap ORAL SCH (08:29)
[2019-02-03] MEDS: Lisinopril 20mg tab ORAL SCH ×2 (08:32→19:10)
[2019-02-03] MEDS: Docusate 100mg cap ORAL SCH ×3 (08:41→18:00)
[2019-02-03] MEDS: Heparin 5000 units/ml inj SUBQ SCH ×2 (08:41→20:39)
[2019-02-03 08:53] VITALS: BP 123/53
--- NOTE | 2019-02-03 12:06 | Nephrology Progress Note ---
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 DC Subjective ROS Limited/Unobtainable: No Objective Objective Last 24 Hour Vital Signs Date Time Temp Pulse Resp B/P (MAP) Pulse Ox O2 Delivery O2 Flow Rate FiO2 02/03/19 08:53 97.8 78 18 123/53 (76) 97 02/03/19 08:32 123/53 02/03/19 08:28 78 125/53 02/03/19 06:40 148/82 02/03/19 06:40 75 148/82 02/03/19 06:40 148/82 02/03/19 06:05 98.5 02/03/19 04:00 98.5 73 18 155/86 (109) 98 02/03/19 00:08 76 134/65 02/03/19 00:00 98.5 76 19 134/65 (88) 97 02/02/19 22:20 171/83 02/02/19 21:15 170/84 02/02/19 21:00 Room Air Room Air 02/02/19 20:25 78 20 97 21 02/02/19 20:05 78 153/76 02/02/19 20:00 98.2 78 20 153/76 (101) 97 02/02/19 17:35 135/92 02/02/19 17:35 83 135/92 02/02/19 16:00 98.0 83 20 135/92 (106) 97 02/02/19 15:04 145/61 02/02/19 15:04 145/61 02/02/19 12:15 72 145/61 Intake and Output 02/02/19 02/03/19 19:00 07:00 Intake Total 720 ml 840 ml Output Total 1410 ml 300 ml Balance -690 ml 540 ml Intake Oral 720 ml 840 ml Output Urine Total 1410 ml 300 ml # Voids 1 # Bowel Movements 1 1 Height (Feet): 6 Height (Inches): 1.00 Weight (Pounds): 350 General Appearance: no apparent distress Objective no change Delroy Chin MD February 03, 2019 12:05
[2019-02-03 12:22] VITALS: BP 134/70
--- NOTE | 2019-02-03 14:53 | Internal Med Progress Note ---
Subjective Date of Service: February 03, 2019 Physician Name Mathew Benoit Attending Physician Michael Londono MD Current Medications Medications (Trade) Dose Ordered Sig/Hong Route PRN Reason Start Time Stop Time Status Last Admin Dose Admin Acetaminophen (Tylenol) 650 mg Q4H PRN ORAL Mild Pain/Temp > 100.5 01/29/19 02:00 02/25/19 01:59 02/03/19 06:55 Acetaminophen/ Hydrocodone Bitart ([place] 5/325) 1 tab Q6H PRN ORAL For Pain 02/02/19 19:00 02/09/19 18:59 02/03/19 12:25 Aspirin (Ecotrin) 81 mg DAILY ORAL 01/29/19 09:00 02/25/19 08:59 02/03/19 08:29 Atorvastatin Calcium (Lipitor) 40 mg BEDTIME ORAL 01/29/19 21:00 02/25/19 20:59 02/02/19 20:05 Baclofen (Lioresal) 10 mg FOUR TIMES A DAY ORAL 01/29/19 09:00 02/25/19 08:59 02/03/19 13:30 Carvedilol (Coreg) 25 mg EVERY 12 HOURS ORAL 01/29/19 09:00 02/25/19 08:59 02/03/19 08:28 Clonidine HCl (Catapres tab) 0.2 mg Q8HR ORAL 01/29/19 06:00 02/25/19 05:59 02/03/19 14:37 Dextrose (Dextrose 50%) 25 ml Q30M PRN IV Hypoglycemia 01/29/19 01:45 02/25/19 05:14 Dextrose (Dextrose 50%) 50 ml Q30M PRN IV Hypoglycemia 01/29/19 01:45 02/25/19 05:14 Diltiazem HCl (Cardizem) 60 mg EVERY 6 HOURS ORAL 01/29/19 06:00 02/25/19 05:59 02/03/19 12:26 Docusate Sodium (Colace) 100 mg TID ORAL 01/29/19 09:00 02/25/19 08:59 01/30/19 12:42 Duloxetine HCl (Cymbalta) 60 mg DAILY ORAL 01/29/19 09:00 02/25/19 08:59 02/03/19 08:29 Finasteride (Proscar) 5 mg DAILY ORAL 01/29/19 09:00 02/25/19 08:59 02/03/19 08:31 Gabapentin (Neurontin) 600 mg EVERY 12 HOURS ORAL 01/29/19 09:00 02/25/19 08:59 02/03/19 08:30 Heparin Sodium (Porcine) (Heparin 5000 units/ml) 5,000 units EVERY 12 HOURS SUBQ 01/29/19 09:00 02/25/19 08:59 02/01/19 20:59 Hydralazine HCl (Apresoline) 75 mg Q8HR ORAL 01/29/19 06:00 02/25/19 05:59 02/03/19 14:39 Insulin Aspart (NovoLOG) BEFORE MEALS AND HS SUBQ 01/29/19 06:30 02/25/19 06:29 02/03/19 12:14 Lisinopril (Prinivil) 20 mg BID ORAL 01/29/19 09:00 02/25/19 08:59 02/03/19 08:32 Lorazepam (Ativan) 2 mg EVERY 8 HOURS PRN ORAL Agitation 02/02/19 23:00 02/09/19 22:59 02/03/19 13:35 Minoxidil (Loniten) 2.5 mg Q4H PRN ORAL bp over 170 syst 01/29/19 02:30 02/25/19 10:28 Tamsulosin HCl (Flomax) 0.4 mg BID ORAL 01/29/19 09:00 02/25/19 08:59 02/03/19 08:29 Allergies: Coded Allergies: AMLODIPINE (Verified Allergy, Unknown, 01/25/19) ROS Limited/Unobtainable: No Constitutional: Reports: no symptoms HEENT: Reports: no symptoms Cardiovascular: Reports: no symptoms Respiratory: Reports: no symptoms Gastrointestinal/Abdominal: Reports: no symptoms Genitourinary: Reports: no symptoms Neurologic/Psychiatric: Reports: no symptoms Subjective 58 YO M admitted with head and neck pain due to fall injury. Cover for Int Med- DR Londono. Refusing meds Objective Last Vital Signs Date Time Temp Pulse Resp B/P (MAP) Pulse Ox O2 Delivery O2 Flow Rate FiO2 02/03/19 14:39 154/76 02/03/19 12:26 78 02/03/19 12:22 98.9 19 97 02/02/19 21:00 Room Air Room Air 02/02/19 20:25 21 01/31/19 13:59 2.0 Intake and Output 02/02/19 02/03/19 19:00 07:00 Intake Total 720 ml 840 ml Output Total 1410 ml 300 ml Balance -690 ml 540 ml Intake Oral 720 ml 840 ml Output Urine Total 1410 ml 300 ml # Voids 1 # Bowel Movements 1 1 Objective General Appearance: WD/WN, no apparent distress, alert EENT: PERRL/EOMI, normal ENT inspection Neck: non-tender, normal alignment, supple, normal inspection Cardiovascular: normal peripheral pulses, normal rate, regular rhythm, no gallop/murmur, no JVD Respiratory/Chest: chest wall non-tender, lungs clear, normal breath sounds, no respiratory distress, no accessory muscle use Abdomen: normal bowel sounds, non tender, soft, no organomegaly, no mass Extremities: normal range of motion, non-tender 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 on 02/05/19 Mathew Benoit MD February 03, 2019 14:53
[2019-02-03 16:00] VITALS: BP 136/68
--- NOTE | 2019-02-03 19:18 | NUR ---
NURSE NOTES: Patient complaining of neck pain,per request pain medication given.Will endorse to re asses patient pain level.
--- NOTE | 2019-02-03 19:30 | NUR ---
NURSE NOTES: RECEIVED PATIENT SITTING AT BEDSIDE, ALERT/ORIENTED X4, ABLE TO VERBALIZE NEEDS, NO SIGNS AND SYMPTOMS OF ACUTE CARDIO RESPIRATORY DISTRESS/SHORTNESS OF BREATH, NOTED WITH GENERALIZED EDEMA. ABDOMEN OBESE/SOFT/NON TENDER/BOWEL SOUNDS AUDIBLE IN ALL QUADRANTS, NO REPORT OF N/V/D, BEDSIDE COMMODE/URINAL AVAILABLE. ENCOURAGED PATIENT TO UTILIZE CALL LIGHT FOR ASSISTANCE, VERBALIZED UNDERSTANDING. NAD. DISCHARGE PLAN ONGOING, PATIENT AWARE.
--- NOTE | 2019-02-03 19:50 | NUR ---
HAND-OFF: Report given to FLAKITA MONZON.
[2019-02-03 20:00] VITALS: BP 138/71
--- NOTE | 2019-02-03 20:19 | NUR ---
HAND-OFF: Report given to KAREN KISER.
[2019-02-03] MEDS: Atorvastatin 20mg tab ORAL SCH (20:38)
[2019-02-04] VITALS: BP 135/73
[2019-02-04] MEDS: dilTIAZem HCl 60mg tab ORAL SCH ×4 (00:17→17:02)
[2019-02-04] MEDS: HYDROcodone/Acetamin 5/325 tab ORAL PRN ×3 (01:27→17:04)
[2019-02-04 04:00] VITALS: BP 133/78
[2019-02-04] MEDS: NovoLOG Insulin Flexpen SUBQ SCH ×5 (06:30→21:23)
[2019-02-04] MEDS: cloNIDine 0.2mg Tab ORAL SCH ×3 (06:56→22:00)
[2019-02-04] MEDS: HydrALAZINE 25mg tab ORAL SCH ×3 (06:56→22:24)
[2019-02-04] MEDS: LORazepam 1mg tab ORAL PRN ×2 (07:07→18:29)
[2019-02-04 08:00] VITALS: BP 120/64
[2019-02-04] MEDS: Heparin 5000 units/ml inj SUBQ SCH ×2 (09:00→20:50)
[2019-02-04] MEDS: Docusate 100mg cap ORAL SCH ×3 (09:00→17:03)
[2019-02-04 09:13] LABS: BASOPHILS % (AUTO) 1.1 % (0.0-2.0); EOSINOPHILS % (AUTO) 4.6 % (0.0-3.0); HEMATOCRIT 31.6 % (42.0-52.0); HEMOGLOBIN 9.8 G/DL (14.2-18.0); MEAN CORPUSCULAR VOLUME 81 FL (80-99); MONOCYTES % (AUTO) 7.6 % (1.0-10.0); NEUTROPHILS % (AUTO) 61.7 % (45.0-75.0); PLATELET COUNT 157 K/UL (150-450); RED BLOOD COUNT 3.89 M/UL (4.70-6.10); WHITE BLOOD COUNT 5.4 K/UL (4.8-10.8)
--- NOTE | 2019-02-04 09:15 | NUR ---
NURSE NOTES: Received patient on bed, A/A/Ox4, able to verbalize needs. Was sitting on the edge of the bed. patient refused to wear yellow socks. IV site intact and patent. Had excellent appetite. Marin RAO found him walking with a walker on the hallway. upon pivoting left foot bumped on the corner of the door. cleanse with NS, applied cavilon and hydrogel and cover with optifoam. Bed in low and locked position, call light in reach. No signs of respiratory distress or pain. will continue to monitor.
[2019-02-04 09:24] LABS: ANION GAP 7 mmol/L (5-15); BLOOD UREA NITROGEN 48 mg/dL (7-18); CALCIUM 8.4 MG/DL (8.5-10.1); CARBON DIOXIDE 27 MMOL/L (21-32); CHLORIDE 104 MMOL/L (98-107); CREATININE 2.4 MG/DL (0.55-1.30); POTASSIUM 4.3 MMOL/L (3.5-5.1); SODIUM 137 MMOL/L (136-145)
[2019-02-04] MEDS: Aspirin EC 81mg tab ORAL SCH (09:40)
[2019-02-04] MEDS: DULoxetine 30mg cap ORAL SCH (09:41)
[2019-02-04] MEDS: Tamsulosin 0.4mg cap ORAL SCH ×2 (09:41→17:02)
[2019-02-04] MEDS: Carvedilol 25mg Tab ORAL SCH ×2 (09:41→20:47)
[2019-02-04] MEDS: Lisinopril 20mg tab ORAL SCH ×2 (09:42→17:03)
[2019-02-04 12:00] VITALS: BP 122/71
--- NOTE | 2019-02-04 14:29 | NUR ---
NURSE NOTES: earlier today patient made an inappropriate remarks such as: "Can you do me a favor? Can I kiss you on your cheek?". I responded "That is not part of my job description and I need for you to take your medications". I reported such behavior to Marin RAO. Patient refused to have wound care treatment. patient did not like the fact that a male staff was with me by the door on standby just incase he will repeat his behavior had shown earlier. patient tone of voice changed while there was a male staff around on guard. Thuan moreno made aware of the situation. will cont to monitor.
--- NOTE | 2019-02-04 15:44 | Internal Med Progress Note ---
Subjective Physician Name Mathew Benoit Attending Physician Michael Londono MD Current Medications Medications (Trade) Dose Ordered Sig/Hong Route PRN Reason Start Time Stop Time Status Last Admin Dose Admin Acetaminophen (Tylenol) 650 mg Q4H PRN ORAL Mild Pain/Temp > 100.5 01/29/19 02:00 02/25/19 01:59 02/03/19 20:40 Acetaminophen/ Hydrocodone Bitart ([place] 5/325) 1 tab Q6H PRN ORAL For Pain 02/02/19 19:00 02/09/19 18:59 02/04/19 09:53 Aspirin (Ecotrin) 81 mg DAILY ORAL 01/29/19 09:00 02/25/19 08:59 02/04/19 09:40 Atorvastatin Calcium (Lipitor) 40 mg BEDTIME ORAL 01/29/19 21:00 02/25/19 20:59 02/03/19 20:38 Baclofen (Lioresal) 10 mg FOUR TIMES A DAY ORAL 01/29/19 09:00 02/25/19 08:59 02/04/19 12:29 Carvedilol (Coreg) 25 mg EVERY 12 HOURS ORAL 01/29/19 09:00 02/25/19 08:59 02/04/19 09:41 Clonidine HCl (Catapres tab) 0.2 mg Q8HR ORAL 01/29/19 06:00 02/25/19 05:59 02/04/19 14:14 Dextrose (Dextrose 50%) 25 ml Q30M PRN IV Hypoglycemia 01/29/19 01:45 02/25/19 05:14 Dextrose (Dextrose 50%) 50 ml Q30M PRN IV Hypoglycemia 01/29/19 01:45 02/25/19 05:14 Diltiazem HCl (Cardizem) 60 mg EVERY 6 HOURS ORAL 01/29/19 06:00 02/25/19 05:59 02/04/19 12:29 Docusate Sodium (Colace) 100 mg TID ORAL 01/29/19 09:00 02/25/19 08:59 01/30/19 12:42 Duloxetine HCl (Cymbalta) 60 mg DAILY ORAL 01/29/19 09:00 02/25/19 08:59 02/04/19 09:41 Finasteride (Proscar) 5 mg DAILY ORAL 01/29/19 09:00 02/25/19 08:59 02/04/19 09:40 Gabapentin (Neurontin) 600 mg EVERY 12 HOURS ORAL 01/29/19 09:00 02/25/19 08:59 02/04/19 09:41 Heparin Sodium (Porcine) (Heparin 5000 units/ml) 5,000 units EVERY 12 HOURS SUBQ 01/29/19 09:00 02/25/19 08:59 02/01/19 20:59 Hydralazine HCl (Apresoline) 75 mg Q8HR ORAL 01/29/19 06:00 02/25/19 05:59 02/04/19 14:14 Insulin Aspart (NovoLOG) BEFORE MEALS AND HS SUBQ 01/29/19 06:30 02/25/19 06:29 02/04/19 12:34 Lisinopril (Prinivil) 20 mg BID ORAL 01/29/19 09:00 02/25/19 08:59 02/04/19 09:42 Lorazepam (Ativan) 2 mg EVERY 8 HOURS PRN ORAL Agitation 02/02/19 23:00 02/09/19 22:59 02/04/19 07:07 Minoxidil (Loniten) 2.5 mg Q4H PRN ORAL bp over 170 syst 01/29/19 02:30 02/25/19 10:28 Tamsulosin HCl (Flomax) 0.4 mg BID ORAL 01/29/19 09:00 02/25/19 08:59 02/04/19 09:41 Allergies: Coded Allergies: AMLODIPINE (Verified Allergy, Unknown, 01/25/19) Subjective 58 YO M admitted with head and neck pain due to fall injury. Cover for Int Med- DR Londono. Refusing meds Objective Last Vital Signs Date Time Temp Pulse Resp B/P (MAP) Pulse Ox O2 Delivery O2 Flow Rate FiO2 02/04/19 14:14 165/80 02/04/19 12:29 76 02/04/19 12:00 98.1 18 98 02/03/19 20:47 Room Air Room Air 02/03/19 09:00 2.0 02/02/19 20:25 21 Laboratory Tests Test 02/04/19 09:00 White Blood Count 5.4 K/UL (4.8-10.8) Red Blood Count 3.89 M/UL (4.70-6.10) L Hemoglobin 9.8 G/DL (14.2-18.0) L Hematocrit 31.6 % (42.0-52.0) L Mean Corpuscular Volume 81 FL (80-99) Mean Corpuscular Hemoglobin 25.2 PG (27.0-31.0) L Mean Corpuscular Hemoglobin Concent 31.0 G/DL (32.0-36.0) L Red Cell Distribution Width 16.0 % (11.6-14.8) H Platelet Count 157 K/UL (150-450) Mean Platelet Volume 7.9 FL (6.5-10.1) Neutrophils (%) (Auto) 61.7 % (45.0-75.0) Lymphocytes (%) (Auto) 25.0 % (20.0-45.0) Monocytes (%) (Auto) 7.6 % (1.0-10.0) Eosinophils (%) (Auto) 4.6 % (0.0-3.0) H Basophils (%) (Auto) 1.1 % (0.0-2.0) Sodium Level 137 MMOL/L (136-145) Potassium Level 4.3 MMOL/L (3.5-5.1) Chloride Level 104 MMOL/L (98-107) Carbon Dioxide Level 27 MMOL/L (21-32) Anion Gap 7 mmol/L (5-15) Blood Urea Nitrogen 48 mg/dL (7-18) H Creatinine 2.4 MG/DL (0.55-1.30) H Estimat Glomerular Filtration Rate 33.8 mL/min (>60) Glucose Level 205 MG/DL (74-106) H Calcium Level 8.4 MG/DL (8.5-10.1) L Intake and Output 02/03/19 02/04/19 19:00 07:00 Intake Total 240 ml 600 ml Output Total 400 ml 800 ml Balance -160 ml -200 ml Intake Oral 240 ml 600 ml Output Urine Total 400 ml 800 ml Objective General Appearance: WD/WN, no apparent distress, alert EENT: PERRL/EOMI, normal ENT inspection Neck: non-tender, normal alignment, supple, normal inspection Cardiovascular: normal peripheral pulses, normal rate, regular rhythm, no gallop/murmur, no JVD Respiratory/Chest: chest wall non-tender, lungs clear, normal breath sounds, no respiratory distress, no accessory muscle use Abdomen: normal bowel sounds, non tender, soft, no organomegaly, no mass Extremities: normal range of motion, non-tender 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
[2019-02-04 16:00] VITALS: BP 127/72
--- NOTE | 2019-02-04 17:00 | Nephrology Progress Note ---
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 DC Subjective ROS Limited/Unobtainable: No Objective Objective Last 24 Hour Vital Signs Date Time Temp Pulse Resp B/P (MAP) Pulse Ox O2 Delivery O2 Flow Rate FiO2 02/04/19 14:14 165/80 02/04/19 14:14 165/80 02/04/19 12:29 76 122/71 02/04/19 12:00 98.1 76 18 122/71 (88) 98 02/04/19 10:23 98.9 02/04/19 09:42 120/64 02/04/19 09:41 80 120/64 02/04/19 09:00 Room Air Room Air 02/04/19 08:00 98.9 80 18 120/64 (82) 97 02/04/19 06:56 154/69 02/04/19 06:56 88 154/69 02/04/19 06:56 154/69 02/04/19 04:00 98.0 69 16 133/78 (96) 97 02/04/19 00:17 70 135/73 02/04/19 00:00 98.0 70 21 135/73 (93) 70 02/03/19 22:47 144/73 02/03/19 22:46 144/73 02/03/19 21:10 98.9 02/03/19 20:47 Room Air Room Air 02/03/19 20:37 90 138/71 02/03/19 20:00 98.9 90 20 138/71 (93) 96 02/03/19 19:11 81 144/66 02/03/19 19:10 144/66 Intake and Output 02/03/19 02/04/19 18:59 06:59 Intake Total 240 ml 600 ml Output Total 400 ml 800 ml Balance -160 ml -200 ml Intake Oral 240 ml 600 ml Output Urine Total 400 ml 800 ml Laboratory Tests 02/04/19 09:00: White Blood Count 5.4, Red Blood Count 3.89L, Hemoglobin 9.8L, Hematocrit 31.6L , Mean Corpuscular Volume 81, Mean Corpuscular Hemoglobin 25.2L, Mean Corpuscular Hemoglobin Concent 31.0L, Red Cell Distribution Width 16.0H, Platelet Count 157, Mean Platelet Volume 7.9, Neutrophils (%) (Auto) 61.7, Lymphocytes (%) (Auto) 25.0, Monocytes (%) (Auto) 7.6, Eosinophils (%) (Auto) 4.6H, Basophils (%) (Auto) 1.1, Sodium Level 137, Potassium Level 4.3, Chloride Level 104, Carbon Dioxide Level 27, Anion Gap 7, Blood Urea Nitrogen 48H, Creatinine 2.4H, Estimat Glomerular Filtration Rate 33.8, Glucose Level 205H, Calcium Level 8.4L Height (Feet): 6 Height (Inches): 1.00 Weight (Pounds): 350 General Appearance: no apparent distress Objective no change Delroy Chin MD February 04, 2019 17:00
--- NOTE | 2019-02-04 19:02 | NUR ---
HAND-OFF: Report given to Delilah.
--- NOTE | 2019-02-04 19:30 | NUR ---
NURSE NOTES: RECEIVED PATIENT LYING IN BED, AWAKE, ALERT/ORIENTED X4, VERBALLY RESPONSIVE, NO SIGNS AND SYMPTOMS OF ACUTE CARDIO RESPIRATORY DISTRESS/SHORTNESS OF BREATH, DENIES CHEST PAIN, BILATERAL LOWER EXTREMITIES EDEMATOUS/NON PITTING, ENCOURAGED ELEVATION/NON COMPLIANT. NOTED HEPLOCK LYING TO RIGHT SIDE OF PATIENT, PATIENT STATED "I DON'T NEED IT SO I PULLED IT OUT", NO BLEEDING NOTED FROM SITE. NO REPORT OF GI DISCOMFORT, NO N/V/D, EXCELLENT APPETITE, NOT IN COMPLIANCE WITH [facility] DIET. PATIENT NOTED WITH DRESSING TO LEFT LATERAL FOOT DUE TO TRAUMATIC INJURY SUSTAINED TODAY BY PATIENT. SIDE RAILS UP X2 FOR MOBILITY, BED IN LOWEST POSITION FOR SAFETY, CALL LIGHT WITHIN REACH. PROVIDED PATIENT WITH ICE/ICE WATER AND JUICE. GOWN AND SHEETS WERE CHANGED, TOLERATED WELL. NAD.
[2019-02-04 20:00] VITALS: BP 149/68
[2019-02-04] MEDS: Atorvastatin 20mg tab ORAL SCH (20:47)
--- NOTE | 2019-02-04 21:35 | NUR ---
NURSE NOTES: MONITORED BLOOD GLUCOSE LEVEL VIA GLUCOMETER WITH RESULT 399MG/DL, ASSESSED FOR SIGNS AND SYMPTOMS OF HYPERGLYCEMIA, NONE NOTED, ADMINISTERED 12 UNITS NOVOLOG INSULIN SUBCUT, TOLERATED WELL, NO ADVERSE REACTION NOTED AFTER 15 MINUTES.
--- NOTE | 2019-02-04 22:30 | NUR ---
NURSE NOTES: REASSESSED BLOOD GLUCOSE LEVEL WITH RESULT 282MG/DL, ASSESSED FOR SIGNS AND SYMPTOMS OF HYPERGLYCEMIA, NONE NOTED. WILL CONTINUE TO MONITOR.
[2019-02-05] VITALS: BP 123/53
[2019-02-05] MEDS: HYDROcodone/Acetamin 5/325 tab ORAL PRN ×2 (00:08→06:27)
[2019-02-05] MEDS: dilTIAZem HCl 60mg tab ORAL SCH ×2 (00:09→06:28)
[2019-02-05] MEDS: LORazepam 1mg tab ORAL PRN ×2 (02:46→11:39)
[2019-02-05 04:00] VITALS: BP 135/54
[2019-02-05] MEDS: HydrALAZINE 25mg tab ORAL SCH (06:28)
[2019-02-05] MEDS: cloNIDine 0.2mg Tab ORAL SCH (06:28)
[2019-02-05] MEDS: NovoLOG Insulin Flexpen SUBQ SCH (06:29)
[2019-02-05 08:00] VITALS: BP 123/67
[2019-02-05 08:12] LABS: BASOPHILS % (AUTO) 1.1 % (0.0-2.0); EOSINOPHILS % (AUTO) 6.3 % (0.0-3.0); HEMATOCRIT 29.4 % (42.0-52.0); HEMOGLOBIN 9.3 G/DL (14.2-18.0); LYMPHOCYTES % (AUTO) 29.8 % (20.0-45.0); MEAN CORPUSCULAR VOLUME 80 FL (80-99); MONOCYTES % (AUTO) 8.2 % (1.0-10.0); NEUTROPHILS % (AUTO) 54.6 % (45.0-75.0); PLATELET COUNT 132 K/UL (150-450); RED BLOOD COUNT 3.68 M/UL (4.70-6.10); RED CELL DISTRIBUTION WIDTH 15.8 % (11.6-14.8); WHITE BLOOD COUNT 5.8 K/UL (4.8-10.8)
[2019-02-05 08:23] LABS: ANION GAP 7 mmol/L (5-15); BLOOD UREA NITROGEN 45 mg/dL (7-18); CALCIUM 8.6 MG/DL (8.5-10.1); CARBON DIOXIDE 25 MMOL/L (21-32); CHLORIDE 108 MMOL/L (98-107); CREATININE 2.3 MG/DL (0.55-1.30); POTASSIUM 4.4 MMOL/L (3.5-5.1); SODIUM 140 MMOL/L (136-145)
[2019-02-05] MEDS: DULoxetine 30mg cap ORAL SCH (08:49)
[2019-02-05] MEDS: Tamsulosin 0.4mg cap ORAL SCH (08:49)
[2019-02-05] MEDS: Aspirin EC 81mg tab ORAL SCH (08:49)
[2019-02-05] MEDS: Carvedilol 25mg Tab ORAL SCH (08:50)
[2019-02-05 08:51] VITALS: BP 123/67
[2019-02-05] MEDS: Heparin 5000 units/ml inj SUBQ SCH (08:51)
[2019-02-05] MEDS: Docusate 100mg cap ORAL SCH (08:51)
[2019-02-05] MEDS: Lisinopril 20mg tab ORAL SCH (08:51)
--- NOTE | 2019-02-05 11:45 | NUR ---
NURSE NOTES: pt discharged to [facility] picked up by ambulance with stable condition. pt denied any pain nor discomfort. Iv heplock removed. all discharge report given to Bipin moore and verbalized understanding. pt signed all belongings. VSS.
--- NOTE | 2019-02-05 13:38 | NUR ---
*-* INSURANCE *-* UPDATED CLINICALS AND REVIEWS HAVE BEEN FAXED TO: [facility] P- [phone] F- [phone]....REVIEW/CLINICAL
--- NOTE | 2019-02-05 15:40 | Nephrology Progress Note ---
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 DC Subjective ROS Limited/Unobtainable: No Interval Events/Complaints seen 10 am Constitutional: Reports: no symptoms Objective Objective Last 24 Hour Vital Signs Date Time Temp Pulse Resp B/P (MAP) Pulse Ox O2 Delivery O2 Flow Rate FiO2 02/05/19 09:26 Room Air Room Air 02/05/19 08:51 123/67 02/05/19 08:50 85 123/67 02/05/19 08:00 98.0 85 19 123/67 (85) 97 02/05/19 06:57 98.1 02/05/19 06:28 158/77 02/05/19 06:28 74 158/77 02/05/19 06:28 158/77 02/05/19 05:26 98.1 02/05/19 04:00 97.7 82 19 135/54 (81) 97 02/05/19 00:09 80 135/80 02/05/19 00:00 98.0 78 18 123/53 (76) 98 02/04/19 22:24 126/79 02/04/19 22:00 126/79 02/04/19 21:00 Room Air Room Air 02/04/19 20:47 73 151/72 02/04/19 20:00 98.2 71 18 149/68 (95) 97 02/04/19 17:03 127/72 02/04/19 17:02 76 127/72 02/04/19 16:00 98.9 76 19 127/72 (90) 97 Intake and Output 02/04/19 02/05/19 19:00 07:00 Intake Total 1060 ml 420 ml Output Total 600 ml Balance 1060 ml -180 ml Intake Oral 60 ml 420 ml Other 1000 ml Output Urine Total 600 ml # Voids 3 # Bowel Movements 2 Laboratory Tests 02/05/19 07:05: White Blood Count 5.8, Red Blood Count 3.68L, Hemoglobin 9.3L, Hematocrit 29.4L , Mean Corpuscular Volume 80, Mean Corpuscular Hemoglobin 25.3L, Mean Corpuscular Hemoglobin Concent 31.6L, Red Cell Distribution Width 15.8H, Platelet Count 132L, Mean Platelet Volume 7.1, Neutrophils (%) (Auto) 54.6, Lymphocytes (%) (Auto) 29.8, Monocytes (%) (Auto) 8.2, Eosinophils (%) (Auto) 6.3H, Basophils (%) (Auto) 1.1, Sodium Level 140, Potassium Level 4.4, Chloride Level 108H, Carbon Dioxide Level 25, Anion Gap 7, Blood Urea Nitrogen 45H, Creatinine 2.3H, Estimat Glomerular Filtration Rate 35.6, Glucose Level 117H, Calcium Level 8.6 Height (Feet): 6 Height (Inches): 1.00 Weight (Pounds): 350 General Appearance: no apparent distress Objective no change Delroy Chin MD February 05, 2019 15:40
--- NOTE | 2019-02-05 19:30 | NUR ---
HAND-OFF: Report given to KAREN MCCRAY.
== END 2019-02-05 12:05 | DRG 52 ==
LOC: EDBD 22:03 → EMR 23:57 → OBSVTOIN 01-26 01:55 → 2E 01-26 01:55 → EDBEDREQ 01-26 02:21 → 4E 01-29 01:53
PROC: 30233N1 Transfusion of Nonautologous Red Blood Cells into Peripheral Vein, Percutaneous Approach (ICD-10-PCS; principal; 2019-01-27)
DX: G93.40 Encephalopathy, unspecified (principal); E11.21 Type 2 diabetes mellitus with diabetic nephropathy; E11.40 Type 2 diabetes mellitus with diabetic neuropathy, unspecified; N17.9 Acute kidney failure, unspecified; N18.3 Chronic kidney disease, stage 3 (moderate); I13.0 Hypertensive heart and chronic kidney disease with heart failure and stage 1 through stage 4 chronic kidney disease, or unspecified chronic kidney disease; I50.32 Chronic diastolic (congestive) heart failure; N39.0 Urinary tract infection, site not specified; E66.9 Obesity, unspecified; Z68.36 Body mass index [BMI] 36.0-36.9, adult; K52.9 Noninfective gastroenteritis and colitis, unspecified; G47.33 Obstructive sleep apnea (adult) (pediatric); W19.XXXA Unspecified fall, initial encounter; E88.09 Other disorders of plasma-protein metabolism, not elsewhere classified; S00.90XA Unspecified superficial injury of unspecified part of head, initial encounter; Y92.129 Unspecified place in nursing home as the place of occurrence of the external cause; S10.90XA Unspecified superficial injury of unspecified part of neck, initial encounter; S49.92XA Unspecified injury of left shoulder and upper arm, initial encounter; Z88.8 Allergy status to other drugs, medicaments and biological substances; Z86.711 Personal history of pulmonary embolism; Z86.73 Personal history of transient ischemic attack (TIA), and cerebral infarction without residual deficits; R51 Headache; M54.2 Cervicalgia
CPT/HCPCS: 36415; 70450; 71045; 72125; 76770; 80048; 80053; 80061; 80307; 80329; 81003; 82140; 82550; 82607; 82728; 82746; 82962; 82977; 83036; 83540; 83550; 83735; 83880; 84100; 84300; 84443; 84484; 84550; 85007; 85025; 86140; 86850; 86900; 86901; 86920; 87081; 87086; 87181; 87324; 89050; 93005; 93306; 94664; 96374; 99284; J1815